=== PATIENT | male | born 1980 | race Two or more races ===

== ENCOUNTER 2016-02-25 12:22 | Inpatient (IN) | payer OTHER ==
[2016-02-25 14:14] VITALS: BMI 24.3
--- NOTE | 2016-02-25 15:26 | HP ---
COWS - Scale Resting Pulse: 0= OK 80 or Below Sweatin=Flushed/Facial Moisture Restless Observation: 1= Difficult to Sit Still Pupil Size: 0= Normal to Room Light Bone or Joint Aches: 2= Severe Diffuse Aches Runny Nose/ Eye Tearin= Runny Nose/Eyes GI Upset > 30mins: 1= Stomach Cramp Tremor Observation: 2= Slight Tremor Visible Yawning Observation: 2= >3x During Session Anxiety or Irritability: 2=Irritable/Anxious Goose Flesh Skin: 3=Piloerection COWS Score: 17 CIWA Score - CIWA Score Nausea/Vomitin-No Nausea/No Vomiting Muscle Tremors: 4-Moderate,w/Arms Extend Anxiety: 4-Mod. Anxious/Guarded Agitation: 4-Moderately Restless Paroxysmal Sweats: 3 Orientation: 0-Oriented Tacttile Disturbances: 0-None Auditory Disturbances: 0-None Visual Disturbances: 0-None Headache: 0-None Present CIWA-Ar Total Score: 15 Admission ROS S - HPI Chief Complaint: I want to start drug free for the new year. Allergies/Adverse Reactions: Allergies Allergy/AdvReac Type Severity Reaction Status Date / Time No Known Allergies Allergy Verified 02/25/16 15:14 History of Present Illness: pt is a 35yr old male with a history of alcohol and xanax, cocaine dependence seeking detox for treatment. pt is on a mmtp program received 80mg today. pending verification. Exam Limitations: No Limitations - Ebola screening Have you traveled outside of the country in the last 21 days: No Have you had contact with anyone from an Ebola affected area: No Have you been sick,other than usual withdrawal symptoms: No Do you have a fever: No - Review of Systems Constitutional: Chills, Diaphoresis, Loss of Appetite, Night Sweats, Changes in sleep, Unintentional Wgt. Loss EENT: reports: No Symptoms Reported, Tearing, Nose Congestion Respiratory: reports: No Symptoms reported Cardiac: reports: No Symptoms Reported GI: reports: Poor Appetite, Poor Fluid Intake : reports: No Symptoms Reported Musculoskeletal: reports: Back Pain Integumentary: reports: Flushing, Sweating Neuro: reports: Headache, Tingling, Tremors Endocrine: reports: Excessive Sweating, Flushing, Intolerance to Cold, Intolerance to Heat Hematology: reports: No Symptoms Reported Psychiatric: reports: Judgement Intact, Mood/Affect Appropiate, Orientated x3, Agitated, Anxious Other Systems: Reviewed and Negative Patient History - Patient Medical History Hx Anemia: No Hx Asthma: No Hx Chronic Obstructive Pulmonary Disease (COPD): No Hx Cancer: No Hx Cardiac Disorders: No Hx Congestive Heart Failure: No Hx Hypertension: No Hx Hypercholesterolemia: No Hx Pacemaker: No HX Cerebrovascular Accident: No Hx Seizures: No Hx Dementia: No Hx Diabetes: No Hx Gastrointestinal Disorders: No Hx Liver Disease: No Hx Genitourinary Disorders: No Hx Sexually Transmitted Disorders: No Hx Renal Disease (ESRD): No Hx Thyroid Disease: No Hx Human Immunodeficiency Virus (HIV): No (negative) Hx Hepatitis C: Yes (diagnosed 2001) Hx Depression: Yes Hx Suicide Attempt: Yes (LAST 2011; denies any S/H ideation today) Hx Bipolar Disorder: No Hx Schizophrenia: No - Patient Surgical History Past Surgical History: Yes Hx Neurologic Surgery: No Hx Cataract Extraction: No Hx Cardiac Surgery: No Hx Lung Surgery: No Hx Breast Surgery: No Hx Breast Biopsy: No Hx Abdominal Surgery: Yes (mesothelioma 2012) Hx Appendectomy: No Hx Cholecystectomy: No Hx Genitourinary Surgery: No Hx Section: No Hx Orthopedic Surgery: No Anesthesia Reaction: No - PPD History Previous Implant?: Yes Documented Results: Negative w/proof Date: 11/25/15 Results: 0MM PPD to be Administered?: No - Reproductive History Patient is a Female of Child Bearing Age (11 -55 yrs old): No - Smoking Cessation Smoking history: Current every day smoker Have you smoked in the past 12 months: Yes Aproximately how many cigarettes per day: 10 Cigars Per Day: 0 Hx Chewing Tobacco Use: No Initiated information on smoking cessation: Yes 'Breaking Loose' booklet given: 02/25/16 - Substance & Tx. History Hx Alcohol Use: Yes Hx Substance Use: Yes Substance Use Type: Alcohol, Cocaine Hx Substance Use Treatment: Yes - Substances Abused Xanax Route: Oral Frequency: Daily Amount used: 8 mg. Age of first use: 25 Date of Last Use: 02/24/16 Alcohol-raji/vodka/beer Route: Oral Frequency: Daily Amount used: 2 pts./2-6 pks. Age of first use: 10 Date of Last Use: 02/25/16 Family Disease History - Family Disease History Family History: Denies Admission Physical Exam [facility] - Vital Signs Vital Signs: Vital Signs - 24 hr 02/25/16 14:09 Temperature 96.9 F L Pulse Rate 58 L Respiratory 18 Rate Blood Pressure 119/75 - Physical General Appearance: Yes: Appropriately Dressed, Moderate Distress, Tremorous, Irritable, Sweating, Anxious HEENTM: Yes: Normal Voice, Nasal Congestion, Rhinorrhea Respiratory: Yes: Lungs Clear, Normal Breath Sounds, No Respiratory Distress Neck: Yes: No masses,lesions,Nodules Breast: Yes: Within Normal Limits Cardiology: Yes: Regular Rhythm, Regular Rate, S1, S2 Abdominal: Yes: Normal Bowel Sounds, Non Tender, Soft, Surgical Scar (midline d/ t mesothelioma diagnoses) Genitourinary: Yes: Within Normal Limits Back: Yes: Normal Inspection Musculoskeletal: Yes: full range of Motion Extremities: Yes: Normal Capillary Refill, Non-Tender, Tremors Neurological: Yes: Fully Oriented, Alert, Normal Mood/Affect, Normal Response Integumentary: Yes: Normal Color, Diaphoresis, Track Christie Lymphatic: Yes: Within Normal Limits - Diagnostic (1) Alcohol dependence with uncomplicated withdrawal Current Visit: Yes Status: Chronic (2) Cocaine dependence Current Visit: Yes Status: Chronic Qualifiers: Substance use status: uncomplicated Qualified Code(s): F14.20 - Cocaine dependence, uncomplicated (3) Hepatitis C Current Visit: Yes Status: Chronic Qualifiers: Viral hepatitis chronicity: chronic Hepatic coma status: without hepatic coma Qualified Code(s): B18.2 - Chronic viral hepatitis C (4) Methadone maintenance therapy patient Current Visit: Yes Status: Chronic Comment: 80mg received today; pending verification. 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 Current Visit: Yes Status: Chronic (6) Hx of malignant mesothelioma Current Visit: No Status: Chronic Comment: in remission (7) Nicotine dependence Current Visit: Yes Status: Chronic Qualifiers: Nicotine product type: cigarettes Substance use status: uncomplicated Qualified Code(s): F17.210 - Nicotine dependence, cigarettes, uncomplicated Cleared for Admission [facility] - Detox or Rehab [facility] Level of Care: Medically Managed Detox Regimen/Protocol: Valium [facility] Breath Alcohol Content Breath Alcohol Content: 0 Urine Drug Screen - Results Drug Screen Negative: No Urine Drug Screen Results: ROSALIE-Cocaine, OPI-Opiates, MDMA-Ecstasy, BZO- Benzodiazepines, MTD-Methadone
[2016-02-25] MEDS ORDERED: MAGNESIUM HYDROX 2400MG/30ML ORAL SUSPENSION 30 ML CUP PO PRN (15:41)
[2016-02-25] MEDS ORDERED: NICOTINE POLACRILEX 4 MG GUM BC PRN (15:41)
[2016-02-25] MEDS ORDERED: LOPERAMIDE HCL 2 MG CAPSULE PO PRN (15:41)
[2016-02-25] MEDS ORDERED: diphenhydrAMINE HCL 50 MG CAPSULE PO PRN (15:41)
[2016-02-25] MEDS ORDERED: P-EPHED 60MG/TRIPROLIDI 2.5MG TABLET PO PRN (15:41)
[2016-02-25] MEDS ORDERED: hydrOXYzine PAMOATE 50 MG CAPSULE (FP) PO PRN (15:41)
[2016-02-25] MEDS ORDERED: ACETAMINOPHEN 325 MG TABLET (FP) PO PRN (15:41)
[2016-02-25] MEDS ORDERED: guaiFENesin/D-METHORPHAN HB 10 ML UNIT-DOSE CUPS PO PRN (15:41)
[2016-02-25] MEDS ORDERED: MAGNESIUM CITRATE 300 ML BOTTLE PO PRN (15:41)
[2016-02-25] MEDS ORDERED: MAG HYDROX/AL HYDROX/SIMETH 30 ML UNIT-DOSE CUP PO PRN (15:41)
[2016-02-25] MEDS ORDERED: IBUPROFEN 400 MG TABLET (FP) PO PRN (15:41)
[2016-02-25] MEDS ORDERED: MENTHOL/PHENOL 1 EACH UD MM PRN (15:41)
[2016-02-25] MEDS ORDERED: diazePAM 5 MG TABLET PO ONE (16:30)
[2016-02-25] MEDS: diazePAM 5 MG TABLET PO SCH ×2 (18:01→22:29)
[2016-02-25] MEDS: THIAMINE HCL 100 MG TABLET (FP) PO SCH (22:29)
[2016-02-26] MEDS: diazePAM 5 MG TABLET PO SCH ×3 (05:47→22:26)
[2016-02-26] MEDS ORDERED: METHADONE HCL 40 MG DISPERSABLE TABLET PO ONE (08:32)
[2016-02-26] MEDS: diazePAM 5 MG TABLET PO PRN (09:14)
[2016-02-26] MEDS: PRENATAL VITAMINS W/ FOLIC ACID TABLET (FP) PO SCH (09:14)
[2016-02-26] MEDS: NICOTINE 21 MG/24 HOURS TOPICAL PATCH TD SCH (09:15)
--- NOTE | 2016-02-26 09:30 | CONSULT ---
[facility] Psychiatric Consult - Data Date of interview: 02/26/16 Admission source: [facility] Identifying data: This is one of multiple admissions to [facility] for this 35 y/ o male seeking detox treatment on for alcohol,cocaine and benzodiazepine dependence.Patient is single without children,homeless, unemployed and supported on SSI benefits. Substance Abuse History: - Smoking Cessation. Smoking history: Current every day smoker. Have you smoked in the past 12 months: Yes. Aproximately how many cigarettes per day: 10. Cigars Per Day: 0. Hx Chewing Tobacco Use: No. Initiated information on smoking cessation: Yes. 'Breaking Loose' booklet given : 02/25/16. - Substance & Tx. History. Hx Alcohol Use: Yes. Hx Substance Use : Yes. Substance Use Type: Alcohol, Cocaine. Hx Substance Use Treatment: Yes. - Substances Abused. Xanax. Route: Oral. Frequency: Daily. Amount used : 8 mg. Age of first use: 25. Date of Last Use: 02/24/16. Alcohol-raji/ vodka/beer. Route: Oral. Frequency: Daily. Amount used: 2 pts./2-6 pks. Age of first use: 10. Date of Last Use: 02/25/16. Confirmed by patient. Medical History: Significant for hepatitis C and a past history of abdominal surgery for mesothelioma (2012). Psychiatric History: Four psychiatric hospitalizations.Diagnosed with Bipolar Disorder.First contact with the Mental Health system was in 2001 (overdose with "pills").Known to [facility] (2002) and [facility] (2004 for another overdose with olanzapine,seroquel and xanax) .Mr Gallegos reports past maintenance treatment with depakote,seroquel,zyprexa, celexa,zoloft and trazodone.He is totally non compliant with his aftercare (no OPD clinic,no contact with psychiatrists,no medications)."I stopped going to my program and I have not taken medications since my discharge from this rehab program last November." Self-report of a suicide attempt via self-mutilation ( left arm) in 2011.Patient is on methadone maintenance (80 mg/day). Physical/Sexual Abuse/Trauma History: Patient denies. Additional Comment: Urine Drug Screen Results: ROSALIE-Cocaine, OPI-Opiates, MDMA- Ecstasy, BZO-Benzodiazepines, MTD-Methadone.Noted. Mental Status Exam - Mental Status Exam Alert and Oriented to: Time, Place, Person Cognitive Function: Good Patient Appearance: Well Groomed Mood: Hopeful, Euthymic Affect: Appropriate, Normal Range Patient Behavior: Appropriate, Cooperative Speech Pattern: Clear Voice Loudness: Normal Thought Process: Goal Oriented Thought Disorder: Not Present Hallucinations: Denies Suicidal Ideation: Denies Homicidal Ideation: Denies Insight/Judgement: Poor Sleep: Poorly, Difficulty falling asleep Appetite: Good Muscle strength/Tone: Normal Gait/Station: Normal Psychiatric Findings - Problem List ([place] 1, 2,3) (1) Alcohol dependence with uncomplicated withdrawal Current Visit: Yes Status: Acute (2) Cocaine dependence Current Visit: Yes Status: Acute Qualifiers: Substance use status: uncomplicated Qualified Code(s): F14.20 - Cocaine dependence, uncomplicated (3) Opioid dependence on agonist therapy Current Visit: Yes Status: Acute (4) Opioid dependence Current Visit: Yes Status: Acute (5) MDMA abuse Current Visit: Yes Status: Acute (6) Sedative/hypnotic withdrawal without complication Current Visit: Yes Status: Chronic (7) Nicotine dependence Current Visit: Yes Status: Acute Qualifiers: Nicotine product type: cigarettes Substance use status: uncomplicated Qualified Code(s): F17.210 - Nicotine dependence, cigarettes, uncomplicated (8) Drug-induced mood disorder Current Visit: Yes Status: Acute (9) Bipolar disorder Current Visit: No Status: Chronic Comment: History reported by patient. (10) Hepatitis C Current Visit: Yes Status: Chronic Qualifiers: Viral hepatitis chronicity: chronic Hepatic coma status: without hepatic coma Qualified Code(s): B18.2 - Chronic viral hepatitis C (11) Hx of malignant mesothelioma Current Visit: No Status: Chronic Comment: in remission - Initial Treatment Plan Initial Treatment Plan: Psychoeducation.Detoxification.Zolpidem 5 mg po hs prn for insomnia.Patient is made aware of parasomnias.He declines to take any other medication (except detox meds).Observation.
--- NOTE | 2016-02-26 10:06 | PN ---
S CIWA - CIWA Score Nausea/Vomitin Muscle Tremors: 3 Anxiety: 3 Agitation: 3 Paroxysmal Sweats: 1-Minimal Palms Moist Orientation: 0-Oriented Tacttile Disturbances: 1-Very Mild Itch/Numbness Auditory Disturbances: 1-Very Mild Visual Disturbances: 1-Very Mild Sensitivity Headache: 2-Mild CIWA-Ar Total Score: 18 BHS Progress Note (SOAP) Subjective: ALERT,IRRITABLE,ANXIOUS,INTERRUPTED SLEEP,TREMOR,PAIN IN THE BODY AND BACK Objective: 02/26/16 10:04 Vital Signs Temperature 97.1 F L 02/26/16 09:35 Pulse Rate 67 02/26/16 09:35 Respiratory Rate 18 02/26/16 09:35 Blood Pressure 108/68 02/26/16 09:35 O2 Sat by Pulse Oximetry (%) EKG SINUS BRADYCARDIA 50/MIN NO CHEST PAIN,NO SOB,NO DIZZINESS LABS PENDING Assessment: 02/26/16 10:05 WITHDRAWAL SYMPTOM Plan: CONTINUE DETOX
[2016-02-26 11:30] LABS: MCH 30.6 pg (25.7-33.7); MCHC 33.1 g/dl (32.0-35.9); MEAN CELL VOLUME 92.6 fl (80-96); MEAN PLT VOLUME 11.5 fl (7.5-11.1); PLATELET COUNT 128 K/MM3 (134-434); RDW 13.3 % (11.9-15.9); WHITE BLOOD COUNT 8.6 K/mm3 (4.0-10.0)
[2016-02-26 11:31] LABS: ALBUMIN 4.2 g/dl (3.4-5.0); ALK PHOS 108 U/L (45-117); ANION GAP 6 (8-16); BILIRUBIN,TOTAL 0.2 mg/dL (0.2-1.0); CALCIUM 9.3 mg/dL (8.5-10.1); CO2 30 mmol/L (21-32); GLUCOSE,RANDOM 55 mg/dL (74-106); SGOT/AST 66 U/L (15-37); SGPT/ALT 102 U/L (12-78); TOT PROT 8.1 g/dl (6.4-8.2)
[2016-02-26 13:18] LABS: HIV 1 & 2 AB NEGATIVE; HIV 1 AGp24 NEGATIVE
[2016-02-26] MEDS: THIAMINE HCL 100 MG TABLET (FP) PO SCH (22:24)
[2016-02-26] MEDS: ZOLPIDEM TARTRATE 5 MG TABLET PO PRN (22:43)
[2016-02-27] MEDS: METHADONE HCL 40 MG DISPERSABLE TABLET PO SCH (05:40)
[2016-02-27] MEDS: diazePAM 5 MG TABLET PO PRN ×3 (05:40→19:08)
--- NOTE | 2016-02-27 09:59 | PN ---
S CIWA - CIWA Score Nausea/Vomitin Muscle Tremors: 3 Anxiety: 2 Agitation: 2 Paroxysmal Sweats: 1-Minimal Palms Moist Orientation: 0-Oriented Tacttile Disturbances: 1-Very Mild Itch/Numbness Auditory Disturbances: 1-Very Mild Visual Disturbances: 1-Very Mild Sensitivity Headache: 2-Mild CIWA-Ar Total Score: 16 S Progress Note (SOAP) Subjective: ALERT,IRRITABLE,ANXIOUS,INTERRUPTED SLEEP,TREMOR Objective: 02/27/16 09:57 Vital Signs Temperature 98.6 F 02/27/16 09:42 Pulse Rate 20 L 02/27/16 09:42 Respiratory Rate 18 02/27/16 09:42 Blood Pressure 108/70 02/27/16 09:42 O2 Sat by Pulse Oximetry (%) Laboratory Last Values WBC 8.6 K/mm3 (4.0-10.0) 02/26/16 06:00 RBC 4.13 M/mm3 (4.00-5.60) 02/26/16 06:00 Hgb 12.6 GM/dL (11.7-16.9) 02/26/16 06:00 Hct 38.2 % (35.4-49) 02/26/16 06:00 MCV 92.6 fl (80-96) 02/26/16 06:00 MCHC 33.1 g/dl (32.0-35.9) 02/26/16 06:00 RDW 13.3 % (11.9-15.9) 02/26/16 06:00 Plt Count 128 K/MM3 (134-434) L 02/26/16 06:00 MPV 11.5 fl (7.5-11.1) H 02/26/16 06:00 Sodium 140 mmol/L (136-145) 02/26/16 06:00 Potassium 4.0 mmol/L (3.5-5.1) 02/26/16 06:00 Chloride 104 mmol/L (98-107) 02/26/16 06:00 Carbon Dioxide 30 mmol/L (21-32) 02/26/16 06:00 Anion Gap 6 (8-16) L 02/26/16 06:00 BUN 14 mg/dL (7-18) 02/26/16 06:00 Creatinine 1.0 mg/dL (0.7-1.3) 02/26/16 06:00 Creat Clearance w eGFR > 60 (>60) 02/26/16 06:00 Random Glucose 55 mg/dL (74-106) L 02/26/16 06:00 Calcium 9.3 mg/dL (8.5-10.1) 02/26/16 06:00 Total Bilirubin 0.2 mg/dL (0.2-1.0) 02/26/16 06:00 AST 66 U/L (15-37) H 02/26/16 06:00 ALT 102 U/L (12-78) H 02/26/16 06:00 Alkaline Phosphatase 108 U/L (45-117) 02/26/16 06:00 Total Protein 8.1 g/dl (6.4-8.2) 02/26/16 06:00 Albumin 4.2 g/dl (3.4-5.0) 02/26/16 06:00 RPR Titer Nonreactive (NONREACTIVE) 02/26/16 06:00 HIV 1&2 Antibody Screen Negative 02/25/16 06:00 HIV P24 Antigen Negative 02/25/16 06:00 Assessment: 02/27/16 09:58 WITHDRAWAL SYMPTOM Plan: CONTINUE DETOX,D/C TYLENOL,AST 66,ALT 102
[2016-02-27] MEDS: PRENATAL VITAMINS W/ FOLIC ACID TABLET (FP) PO SCH (10:22)
[2016-02-27] MEDS: diazePAM 5 MG TABLET PO SCH ×2 (10:22→22:23)
[2016-02-27] MEDS: NICOTINE 21 MG/24 HOURS TOPICAL PATCH TD SCH (10:22)
[2016-02-27] MEDS: THIAMINE HCL 100 MG TABLET (FP) PO SCH (22:22)
[2016-02-27] MEDS: ZOLPIDEM TARTRATE 5 MG TABLET PO PRN (22:23)
[2016-02-28 00:44] LABS: URINE APPEARANCE CLEAR; URINE BILIRUBIN NEGATIVE (NEGATIVE); URINE BLOOD NEGATIVE (NEGATIVE); URINE COLOR LTYELLOW; URINE GLUCOSE (UA) NEGATIVE (NEGATIVE); URINE KETONE NEGATIVE (NEGATIVE); URINE LEUK ESTERASE NEGATIVE (NEGATIVE); URINE NITRITE NEGATIVE (NEGATIVE); URINE PROTEIN NEGATIVE (NEGATIVE); URINE UROBILINOGEN NEGATIVE E.U./dl (0.2-1.0)
[2016-02-28] MEDS: diazePAM 5 MG TABLET PO PRN ×2 (00:55→13:12)
[2016-02-28] MEDS ORDERED: diazePAM 5 MG TABLET PO ONE (03:07)
[2016-02-28] MEDS: METHADONE HCL 40 MG DISPERSABLE TABLET PO SCH (05:23)
--- NOTE | 2016-02-28 10:12 | PN ---
S Progress Note (SOAP) Subjective: alert,irritable,anxious,interrupted sleep Objective: 02/28/16 10:11 Vital Signs Temperature 97.9 F 02/28/16 06:18 Pulse Rate 62 02/28/16 09:52 Respiratory Rate 18 02/28/16 09:52 Blood Pressure 113/70 02/28/16 09:52 O2 Sat by Pulse Oximetry (%) Assessment: 02/28/16 10:11 withdrawal symptom Plan: continue detox ,discharge in am
[2016-02-28] MEDS: PRENATAL VITAMINS W/ FOLIC ACID TABLET (FP) PO SCH (10:26)
[2016-02-28] MEDS: diazePAM 5 MG TABLET PO SCH (10:27)
[2016-02-28] MEDS: NICOTINE 21 MG/24 HOURS TOPICAL PATCH TD SCH (10:27)
[2016-02-28 14:52] VITALS: BP 108/59; PULSE 65; TEMP 96.6
--- NOTE | 2016-02-28 15:39 | DS ---
[facility] Detox Discharge Summary Admission Date: 02/25/16 Discharge Date: 02/28/16 - History Present History: Alcohol Dependence, Cocaine Dependence, Sedative Dependence, MMTP Pertinent Past History: HEP C HX. OF MESOTHELIOMA OF THE LUNG? - Physical Exam Results Vital Signs: Vital Signs Temperature 96.6 F L 02/28/16 14:35 Pulse Rate 65 02/28/16 14:35 Respiratory Rate 18 02/28/16 14:35 Blood Pressure 108/59 02/28/16 14:35 O2 Sat by Pulse Oximetry (%) Pertinent Admission Physical Exam Findings: WITHDRAWAL SX. Laboratory Last Values WBC 8.6 K/mm3 (4.0-10.0) 02/26/16 06:00 RBC 4.13 M/mm3 (4.00-5.60) 02/26/16 06:00 Hgb 12.6 GM/dL (11.7-16.9) 02/26/16 06:00 Hct 38.2 % (35.4-49) 02/26/16 06:00 MCV 92.6 fl (80-96) 02/26/16 06:00 MCHC 33.1 g/dl (32.0-35.9) 02/26/16 06:00 RDW 13.3 % (11.9-15.9) 02/26/16 06:00 Plt Count 128 K/MM3 (134-434) L 02/26/16 06:00 MPV 11.5 fl (7.5-11.1) H 02/26/16 06:00 Sodium 140 mmol/L (136-145) 02/26/16 06:00 Potassium 4.0 mmol/L (3.5-5.1) 02/26/16 06:00 Chloride 104 mmol/L (98-107) 02/26/16 06:00 Carbon Dioxide 30 mmol/L (21-32) 02/26/16 06:00 Anion Gap 6 (8-16) L 02/26/16 06:00 BUN 14 mg/dL (7-18) 02/26/16 06:00 Creatinine 1.0 mg/dL (0.7-1.3) 02/26/16 06:00 Creat Clearance w eGFR > 60 (>60) 02/26/16 06:00 Random Glucose 55 mg/dL (74-106) L 02/26/16 06:00 Calcium 9.3 mg/dL (8.5-10.1) 02/26/16 06:00 Total Bilirubin 0.2 mg/dL (0.2-1.0) 02/26/16 06:00 AST 66 U/L (15-37) H 02/26/16 06:00 ALT 102 U/L (12-78) H 02/26/16 06:00 Alkaline Phosphatase 108 U/L (45-117) 02/26/16 06:00 Total Protein 8.1 g/dl (6.4-8.2) 02/26/16 06:00 Albumin 4.2 g/dl (3.4-5.0) 02/26/16 06:00 Urine Color Ltyellow 02/28/16 00:30 Urine Appearance Clear 02/28/16 00:30 Urine pH 5.0 (5.0-8.0) 02/28/16 00:30 Ur Specific [place] 1.018 (1.001-1.035) 02/28/16 00:30 Urine Protein Negative (NEGATIVE) 02/28/16 00:30 Urine Glucose (UA) Negative (NEGATIVE) 02/28/16 00:30 Urine Ketones Negative (NEGATIVE) 02/28/16 00:30 Urine Blood Negative (NEGATIVE) 02/28/16 00:30 Urine Nitrite Negative (NEGATIVE) 02/28/16 00:30 Urine Bilirubin Negative (NEGATIVE) 02/28/16 00:30 Urine Urobilinogen Negative E.U./dl (0.2-1.0) 02/28/16 00:30 Ur Leukocyte Esterase Negative (NEGATIVE) 02/28/16 00:30 RPR Titer Nonreactive (NONREACTIVE) 02/26/16 06:00 HIV 1&2 Antibody Screen Negative 02/25/16 06:00 HIV P24 Antigen Negative 02/25/16 06:00 LABS NOTED - Treatment Hospital Course: Detox Protocol Followed, Detoxed Safely, Discharged Condition Good - Medication Discharge Medications: Ambulatory Orders Citalopram Hydrobromide [Celexa -] 10 mg PO DAILY 11/26/15 Divalproex [Depakote -] 500 mg PO BID 11/26/15 Quetiapine Fumarate [Seroquel] 100 mg PO HS 11/26/15 - Diagnosis (1) Alcohol dependence with uncomplicated withdrawal Status: Acute (2) Cocaine dependence Status: Acute Qualifiers: Substance use status: uncomplicated Qualified Code(s): F14.20 - Cocaine dependence, uncomplicated (3) Drug-induced mood disorder Status: Acute (4) Nicotine dependence Status: Acute Qualifiers: Nicotine product type: cigarettes Substance use status: uncomplicated Qualified Code(s): F17.210 - Nicotine dependence, cigarettes, uncomplicated (5) Opioid dependence on agonist therapy Status: Acute (6) Hepatitis C Status: Chronic Qualifiers: Viral hepatitis chronicity: chronic Hepatic coma status: without hepatic coma Qualified Code(s): B18.2 - Chronic viral hepatitis C - AMA Did Patient Leave Against Medical Advice: No
[2016-02-29] MEDS ORDERED: diazePAM 5 MG TABLET PO SCH (10:00)
== END 2016-02-28 14:38 | disposition other institution (70) | DRG 773 ==
LOC: YASAS 12:22 → Y3N 16:00
PROVIDERS: ADMIT Internal Medicine; ATTEND Internal Medicine
PROC: HZ2ZZZZ Detoxification Services for Substance Abuse Treatment (ICD-10-PCS; principal; 2016-02-25)
DX: F10.230 Alcohol dependence with withdrawal, uncomplicated (principal); F11.20 Opioid dependence, uncomplicated; F14.20 Cocaine dependence, uncomplicated; F17.210 Nicotine dependence, cigarettes, uncomplicated; F19.24 Other psychoactive substance dependence with psychoactive substance-induced mood disorder; F31.9 Bipolar disorder, unspecified; B18.2 Chronic viral hepatitis C; R00.1 Bradycardia, unspecified; Z85.9 Personal history of malignant neoplasm, unspecified; Z91.5 Personal history of self-harm
CPT/HCPCS: 36415; 80053; 81003; 85027; 86593; 87389; 93005; 93010

== ENCOUNTER 2016-02-28 14:45 | Inpatient (IN) | payer OTHER ==
[2016-02-28] MEDS ORDERED: guaiFENesin/D-METHORPHAN HB 10 ML UNIT-DOSE CUPS PO PRN (15:24)
[2016-02-28] MEDS ORDERED: MENTHOL/PHENOL 1 EACH UD MM PRN (15:24)
[2016-02-28] MEDS ORDERED: MAGNESIUM CITRATE 300 ML BOTTLE PO PRN (15:24)
[2016-02-28] MEDS ORDERED: P-EPHED 60MG/TRIPROLIDI 2.5MG TABLET PO PRN (15:24)
[2016-02-28] MEDS ORDERED: MAGNESIUM HYDROX 2400MG/30ML ORAL SUSPENSION 30 ML CUP PO PRN (15:24)
[2016-02-28] MEDS ORDERED: diphenhydrAMINE HCL 50 MG CAPSULE PO PRN (15:24)
[2016-02-28] MEDS ORDERED: LOPERAMIDE HCL 2 MG CAPSULE PO PRN (15:24)
--- NOTE | 2016-02-28 15:43 | HP ---
[facility] Rehab Assess/Revision - Admission History Admitted to Rehab from: [facility] [place] Date of Admission to Rehab: 02/28/16 - Vital signs Vital Signs: Vital Signs Period Temp Pulse Resp BP Sys/Max Pulse Ox Last 24 Hr 98.9 F 83 18 115/66 - Findings Detox History & Physical reviewed: Yes Concur with findings: Yes
[2016-02-28] MEDS: NICOTINE 21 MG/24 HOURS TOPICAL PATCH TD SCH (15:53)
[2016-02-28] MEDS: IBUPROFEN 400 MG TABLET (FP) PO PRN (19:03)
[2016-02-28] MEDS: THIAMINE HCL 100 MG TABLET (FP) PO SCH (22:30)
[2016-02-29] MEDS: METHADONE HCL 40 MG DISPERSABLE TABLET PO SCH (06:13)
[2016-02-29] MEDS: ACETAMINOPHEN 325 MG TABLET (FP) PO PRN (06:15)
[2016-02-29] MEDS: NICOTINE 21 MG/24 HOURS TOPICAL PATCH TD SCH (10:27)
[2016-02-29] MEDS: PRENATAL VITAMINS W/ FOLIC ACID TABLET (FP) PO SCH (10:28)
--- NOTE | 2016-02-29 15:25 | HP ---
Psychiatrist Admission - Data Date of interview: 02/29/16 Admission source: Transfer Identifying data: Admission to [address] for this 35 y/o male seeking rehabilitation treatment for alcohol,cocaine and benzodiazepine dependence.Transferred from [address] [place] [address].Patient is single without children,homeless, unemployed and supported on SSI benefits. Medical History: Significant for hepatitis C and a past history of abdominal surgery for mesothelioma (2012 Psychiatric History: Four psychiatric hospitalizations.Diagnosed with Bipolar Disorder.First contact with the Mental Health system was in 2001 (overdose with "pills").Known to [facility] (2002) and [facility] (2004 for another overdose with olanzapine,seroquel and xanax) .Mr El reports past maintenance treatment with depakote,seroquel,zyprexa, celexa,zoloft and trazodone.He is totally non compliant with his aftercare (no OPD clinic,no contact with psychiatrists,no medications)."I stopped going to my program and I have not taken medications since my discharge from this rehab program last November." Self-report of a suicide attempt via self-mutilation ( left arm) in 2011.Patient is on methadone maintenance (80 mg/day). Physical/Sexual Abuse/Trauma History: Patient denies history of sexual abuse. Additional Comment: Smoking Cessation. Smoking history: Current every day smoker. Have you smoked in the past 12 months: Yes. Aproximately how many cigarettes per day: 10. Cigars Per Day: 0. Hx Chewing Tobacco Use: No. Initiated information on smoking cessation: Yes. 'Breaking Loose' booklet given : 02/25/16. - Substance & Tx. History. Hx Alcohol Use: Yes. Hx Substance Use : Yes. Substance Use Type: Alcohol, Cocaine. Hx Substance Use Treatment: Yes. - Substances Abused. Xanax. Route: Oral. Frequency: Daily. Amount used : 8 mg. Age of first use: 25. Date of Last Use: 02/24/16. Alcohol-raji/ vodka/beer. Route: Oral. Frequency: Daily. Amount used: 2 pts./2-6 pks. Age of first use: 10. Date of Last Use: 02/25/16. Confirmed by patient. Vital Signs: Vital Signs - 24 hr 02/29/16 02/29/16 02/29/16 01:22 03:30 07:14 Temperature 98.2 F Pulse Rate 65 Respiratory 18 18 18 Rate Blood Pressure 134/88 02/29/16 10:00 Temperature 98.2 F Pulse Rate 67 Respiratory 20 Rate Blood Pressure 117/57 Allergies/Adverse Reactions: Allergies Allergy/AdvReac Type Severity Reaction Status Date / Time No Known Allergies Allergy Verified 02/28/16 15:09 - Substance Abuse/Tx History Hx Alcohol Use: Yes Hx Substance Use: Yes Substance Use Type: Alcohol, Cocaine, Tranquilizers Hx Substance Use Treatment: Yes - Admission Criteria Previous failed treatment: Yes Poor recovery environment: Yes Comorbidities: Yes Lacks judgement: Yes Mental Status Exam - Mental Status Exam Alert and Oriented to: Time, Place, Person Cognitive Function: Good Patient Appearance: Well Groomed Mood: Hopeful, Euthymic Affect: Appropriate, Normal Range Patient Behavior: Talkative, Appropriate, Cooperative Speech Pattern: Clear Voice Loudness: Normal Thought Process: Intact, Goal Oriented Thought Disorder: Not Present Hallucinations: Denies Suicidal Ideation: Denies Homicidal Ideation: Denies Insight/Judgement: Fair Sleep: Poorly, Difficulty falling asleep (agrees to take a low dose of seroquel) Appetite: Good Muscle strength/Tone: Normal Gait/Station: Normal Psychiatric Findings - Problem List ([place] 1, 2,3) (1) Alcohol dependence Current Visit: Yes Status: Acute Qualifiers: Substance use status: uncomplicated Qualified Code(s): F10.20 - Alcohol dependence, uncomplicated (2) Cocaine dependence Current Visit: Yes Status: Acute Qualifiers: Substance use status: uncomplicated Qualified Code(s): F14.20 - Cocaine dependence, uncomplicated (3) MDMA abuse Current Visit: No Status: Acute (4) Nicotine dependence Current Visit: Yes Status: Acute Qualifiers: Nicotine product type: cigarettes Substance use status: uncomplicated Qualified Code(s): F17.210 - Nicotine dependence, cigarettes, uncomplicated (5) Opioid dependence on agonist therapy Current Visit: Yes Status: Acute (6) Sedative dependence Current Visit: Yes Status: Acute (7) Drug-induced mood disorder Current Visit: Yes Status: Chronic (8) Bipolar disorder Current Visit: Yes Status: Chronic Comment: History reported by patient. (9) Hepatitis C Current Visit: Yes Status: Chronic Qualifiers: Viral hepatitis chronicity: chronic Hepatic coma status: without hepatic coma Qualified Code(s): B18.2 - Chronic viral hepatitis C (10) Hx of malignant mesothelioma Current Visit: No Status: Chronic Comment: in remission (11) Insomnia Current Visit: Yes Status: Acute - Initial Treatment Plan Initial Treatment Plan: Psychoeducation.Support groups.Seroquel 100 mg po hs.Side effects/benefits discussed with patient.He agrees with this plan.Observation.
[2016-02-29] MEDS: QUEtiapine FUMARATE 100 MG TABLET (FP) PO SCH (21:52)
[2016-02-29] MEDS: THIAMINE HCL 100 MG TABLET (FP) PO SCH (21:53)
[2016-03-01] MEDS: METHADONE HCL 40 MG DISPERSABLE TABLET PO SCH (06:47)
[2016-03-01] MEDS: PRENATAL VITAMINS W/ FOLIC ACID TABLET (FP) PO SCH (10:23)
[2016-03-01] MEDS: NICOTINE 21 MG/24 HOURS TOPICAL PATCH TD SCH (10:24)
[2016-03-01] MEDS: MAG HYDROX/AL HYDROX/SIMETH 30 ML UNIT-DOSE CUP PO PRN (10:24)
[2016-03-01] MEDS: QUEtiapine FUMARATE 100 MG TABLET (FP) PO SCH (22:00)
[2016-03-01] MEDS: THIAMINE HCL 100 MG TABLET (FP) PO SCH (22:00)
[2016-03-02] MEDS: METHADONE HCL 40 MG DISPERSABLE TABLET PO SCH (05:59)
[2016-03-02] MEDS: NICOTINE 21 MG/24 HOURS TOPICAL PATCH TD SCH (10:01)
[2016-03-02] MEDS: PRENATAL VITAMINS W/ FOLIC ACID TABLET (FP) PO SCH (10:01)
[2016-03-02] MEDS: MAG HYDROX/AL HYDROX/SIMETH 30 ML UNIT-DOSE CUP PO PRN (10:03)
[2016-03-02] MEDS: QUEtiapine FUMARATE 100 MG TABLET (FP) PO SCH (21:19)
[2016-03-02] MEDS: THIAMINE HCL 100 MG TABLET (FP) PO SCH (21:19)
[2016-03-02] MEDS: CLOTRIMAZOLE/BETAMET DIPROP 15 GM TUBE TP SCH (21:20)
[2016-03-02] MEDS: COLLOIDAL OATMEAL 1 BAR EACH TP PRN (21:21)
[2016-03-03] MEDS: METHADONE HCL 40 MG DISPERSABLE TABLET PO SCH (06:09)
[2016-03-03] MEDS: CLOTRIMAZOLE/BETAMET DIPROP 15 GM TUBE TP SCH ×2 (10:06→21:19)
[2016-03-03] MEDS: PRENATAL VITAMINS W/ FOLIC ACID TABLET (FP) PO SCH (10:06)
[2016-03-03] MEDS: PANTOPRAZOLE 40 MG TABLET (FP) PO SCH (10:06)
[2016-03-03] MEDS: NICOTINE 21 MG/24 HOURS TOPICAL PATCH TD SCH (10:06)
[2016-03-03] MEDS: QUEtiapine FUMARATE 100 MG TABLET (FP) PO SCH (21:19)
[2016-03-03] MEDS: THIAMINE HCL 100 MG TABLET (FP) PO SCH (21:19)
[2016-03-04] MEDS: METHADONE HCL 40 MG DISPERSABLE TABLET PO SCH (06:23)
[2016-03-04] MEDS: PRENATAL VITAMINS W/ FOLIC ACID TABLET (FP) PO SCH (10:08)
[2016-03-04] MEDS: NICOTINE 21 MG/24 HOURS TOPICAL PATCH TD SCH (10:08)
[2016-03-04] MEDS: CLOTRIMAZOLE/BETAMET DIPROP 15 GM TUBE TP SCH ×2 (10:08→21:09)
[2016-03-04] MEDS: PANTOPRAZOLE 40 MG TABLET (FP) PO SCH (10:08)
[2016-03-04] MEDS: THIAMINE HCL 100 MG TABLET (FP) PO SCH (21:09)
[2016-03-04] MEDS: QUEtiapine FUMARATE 100 MG TABLET (FP) PO SCH (21:09)
[2016-03-04] MEDS: MINERAL OIL/PETROLAT/WATER TOPICAL CREAM 113 GM JAR TP SCH (21:10)
[2016-03-05] MEDS: METHADONE HCL 40 MG DISPERSABLE TABLET PO SCH (06:19)
[2016-03-05] MEDS: NICOTINE 21 MG/24 HOURS TOPICAL PATCH TD SCH (10:13)
[2016-03-05] MEDS: PRENATAL VITAMINS W/ FOLIC ACID TABLET (FP) PO SCH (10:13)
[2016-03-05] MEDS: PANTOPRAZOLE 40 MG TABLET (FP) PO SCH (10:13)
[2016-03-05] MEDS: MINERAL OIL/PETROLAT/WATER TOPICAL CREAM 113 GM JAR TP SCH ×2 (10:14→21:12)
[2016-03-05] MEDS: CLOTRIMAZOLE/BETAMET DIPROP 15 GM TUBE TP SCH ×2 (10:14→21:13)
[2016-03-05] MEDS: IBUPROFEN 400 MG TABLET (FP) PO PRN (10:16)
[2016-03-05] MEDS: THIAMINE HCL 100 MG TABLET (FP) PO SCH (21:11)
[2016-03-05] MEDS: QUEtiapine FUMARATE 100 MG TABLET (FP) PO SCH (21:12)
[2016-03-06] MEDS: METHADONE HCL 40 MG DISPERSABLE TABLET PO SCH (06:22)
[2016-03-06] MEDS: ACETAMINOPHEN 325 MG TABLET (FP) PO PRN (06:24)
[2016-03-06] MEDS: PRENATAL VITAMINS W/ FOLIC ACID TABLET (FP) PO SCH (09:45)
[2016-03-06] MEDS: PANTOPRAZOLE 40 MG TABLET (FP) PO SCH (09:46)
[2016-03-06] MEDS: MINERAL OIL/PETROLAT/WATER TOPICAL CREAM 113 GM JAR TP SCH ×2 (09:46→21:13)
[2016-03-06] MEDS: CLOTRIMAZOLE/BETAMET DIPROP 15 GM TUBE TP SCH ×2 (09:46→21:13)
[2016-03-06] MEDS: NICOTINE 21 MG/24 HOURS TOPICAL PATCH TD SCH (09:47)
[2016-03-06] MEDS: THIAMINE HCL 100 MG TABLET (FP) PO SCH (21:12)
[2016-03-06] MEDS: QUEtiapine FUMARATE 100 MG TABLET (FP) PO SCH (21:12)
[2016-03-07] MEDS: METHADONE HCL 40 MG DISPERSABLE TABLET PO SCH (06:37)
[2016-03-07] MEDS: PRENATAL VITAMINS W/ FOLIC ACID TABLET (FP) PO SCH (09:46)
[2016-03-07] MEDS: CLOTRIMAZOLE/BETAMET DIPROP 15 GM TUBE TP SCH ×2 (09:47→21:04)
[2016-03-07] MEDS: MINERAL OIL/PETROLAT/WATER TOPICAL CREAM 113 GM JAR TP SCH ×2 (09:47→21:04)
[2016-03-07] MEDS: NICOTINE 21 MG/24 HOURS TOPICAL PATCH TD SCH (09:47)
[2016-03-07] MEDS: PANTOPRAZOLE 40 MG TABLET (FP) PO SCH (09:47)
[2016-03-07] MEDS: THIAMINE HCL 100 MG TABLET (FP) PO SCH (21:03)
[2016-03-07] MEDS: QUEtiapine FUMARATE 100 MG TABLET (FP) PO SCH (21:04)
[2016-03-08] MEDS: METHADONE HCL 40 MG DISPERSABLE TABLET PO SCH (05:58)
[2016-03-08] MEDS: CLOTRIMAZOLE/BETAMET DIPROP 15 GM TUBE TP SCH ×2 (10:12→21:03)
[2016-03-08] MEDS: PRENATAL VITAMINS W/ FOLIC ACID TABLET (FP) PO SCH (10:12)
[2016-03-08] MEDS: PANTOPRAZOLE 40 MG TABLET (FP) PO SCH (10:12)
[2016-03-08] MEDS: MINERAL OIL/PETROLAT/WATER TOPICAL CREAM 113 GM JAR TP SCH ×2 (10:12→21:03)
[2016-03-08] MEDS: NICOTINE 21 MG/24 HOURS TOPICAL PATCH TD SCH (10:12)
[2016-03-08] MEDS: ACETAMINOPHEN 325 MG TABLET (FP) PO PRN ×2 (10:13→21:04)
[2016-03-08] MEDS: THIAMINE HCL 100 MG TABLET (FP) PO SCH (21:03)
[2016-03-08] MEDS: QUEtiapine FUMARATE 100 MG TABLET (FP) PO SCH (21:03)
[2016-03-09] MEDS: METHADONE HCL 40 MG DISPERSABLE TABLET PO SCH (06:05)
[2016-03-09] MEDS: MINERAL OIL/PETROLAT/WATER TOPICAL CREAM 113 GM JAR TP SCH ×2 (10:10→21:10)
[2016-03-09] MEDS: NICOTINE 21 MG/24 HOURS TOPICAL PATCH TD SCH (10:10)
[2016-03-09] MEDS: PRENATAL VITAMINS W/ FOLIC ACID TABLET (FP) PO SCH (10:10)
[2016-03-09] MEDS: CLOTRIMAZOLE/BETAMET DIPROP 15 GM TUBE TP SCH ×2 (10:10→21:10)
[2016-03-09] MEDS: PANTOPRAZOLE 40 MG TABLET (FP) PO SCH (10:10)
[2016-03-09] MEDS: ACETAMINOPHEN 325 MG TABLET (FP) PO PRN (10:11)
[2016-03-09] MEDS: QUEtiapine FUMARATE 100 MG TABLET (FP) PO SCH (21:10)
[2016-03-09] MEDS: THIAMINE HCL 100 MG TABLET (FP) PO SCH (21:10)
[2016-03-10] MEDS: METHADONE HCL 40 MG DISPERSABLE TABLET PO SCH (05:59)
[2016-03-10] MEDS: NICOTINE 21 MG/24 HOURS TOPICAL PATCH TD SCH (10:30)
[2016-03-10] MEDS: PRENATAL VITAMINS W/ FOLIC ACID TABLET (FP) PO SCH (10:31)
[2016-03-10] MEDS: ACETAMINOPHEN 325 MG TABLET (FP) PO PRN ×2 (10:31→21:06)
[2016-03-10] MEDS: CLOTRIMAZOLE/BETAMET DIPROP 15 GM TUBE TP SCH ×2 (10:31→21:06)
[2016-03-10] MEDS: PANTOPRAZOLE 40 MG TABLET (FP) PO SCH (10:32)
[2016-03-10] MEDS: MINERAL OIL/PETROLAT/WATER TOPICAL CREAM 113 GM JAR TP SCH ×2 (10:32→21:06)
[2016-03-10] MEDS: THIAMINE HCL 100 MG TABLET (FP) PO SCH (21:05)
[2016-03-10] MEDS: QUEtiapine FUMARATE 100 MG TABLET (FP) PO SCH (21:06)
[2016-03-11] MEDS: METHADONE HCL 40 MG DISPERSABLE TABLET PO SCH (06:39)
[2016-03-11] MEDS: PANTOPRAZOLE 40 MG TABLET (FP) PO SCH (10:09)
[2016-03-11] MEDS: PRENATAL VITAMINS W/ FOLIC ACID TABLET (FP) PO SCH (10:09)
[2016-03-11] MEDS: MINERAL OIL/PETROLAT/WATER TOPICAL CREAM 113 GM JAR TP SCH ×2 (10:10→21:18)
[2016-03-11] MEDS: CLOTRIMAZOLE/BETAMET DIPROP 15 GM TUBE TP SCH ×2 (10:10→21:18)
[2016-03-11] MEDS: NICOTINE 21 MG/24 HOURS TOPICAL PATCH TD SCH (10:10)
[2016-03-11] MEDS: ACETAMINOPHEN 325 MG TABLET (FP) PO PRN ×2 (10:11→21:19)
[2016-03-11] MEDS: THIAMINE HCL 100 MG TABLET (FP) PO SCH (21:19)
[2016-03-11] MEDS: QUEtiapine FUMARATE 100 MG TABLET (FP) PO SCH (21:19)
[2016-03-12] MEDS: METHADONE HCL 40 MG DISPERSABLE TABLET PO SCH (06:29)
[2016-03-12] MEDS: PANTOPRAZOLE 40 MG TABLET (FP) PO SCH (10:22)
[2016-03-12] MEDS: CLOTRIMAZOLE/BETAMET DIPROP 15 GM TUBE TP SCH ×2 (10:22→21:30)
[2016-03-12] MEDS: NICOTINE 21 MG/24 HOURS TOPICAL PATCH TD SCH (10:22)
[2016-03-12] MEDS: PRENATAL VITAMINS W/ FOLIC ACID TABLET (FP) PO SCH (10:22)
[2016-03-12] MEDS: MINERAL OIL/PETROLAT/WATER TOPICAL CREAM 113 GM JAR TP SCH ×2 (10:22→21:29)
[2016-03-12] MEDS: THIAMINE HCL 100 MG TABLET (FP) PO SCH (21:28)
[2016-03-12] MEDS: ACETAMINOPHEN 325 MG TABLET (FP) PO PRN (21:29)
[2016-03-12] MEDS: QUEtiapine FUMARATE 100 MG TABLET (FP) PO SCH (21:29)
[2016-03-13] MEDS: METHADONE HCL 40 MG DISPERSABLE TABLET PO SCH (06:36)
[2016-03-13] MEDS: COLLOIDAL OATMEAL 1 BAR EACH TP PRN (07:43)
[2016-03-13] MEDS: PRENATAL VITAMINS W/ FOLIC ACID TABLET (FP) PO SCH (10:30)
[2016-03-13] MEDS: ACETAMINOPHEN 325 MG TABLET (FP) PO PRN (10:30)
[2016-03-13] MEDS: PANTOPRAZOLE 40 MG TABLET (FP) PO SCH (10:30)
[2016-03-13] MEDS: CLOTRIMAZOLE/BETAMET DIPROP 15 GM TUBE TP SCH ×2 (10:31→21:17)
[2016-03-13] MEDS: NICOTINE 21 MG/24 HOURS TOPICAL PATCH TD SCH (10:31)
[2016-03-13] MEDS: MINERAL OIL/PETROLAT/WATER TOPICAL CREAM 113 GM JAR TP SCH ×2 (10:31→21:17)
[2016-03-13] MEDS: QUEtiapine FUMARATE 100 MG TABLET (FP) PO SCH (21:17)
[2016-03-13] MEDS: THIAMINE HCL 100 MG TABLET (FP) PO SCH (21:17)
[2016-03-14] MEDS: METHADONE HCL 40 MG DISPERSABLE TABLET PO SCH (06:15)
[2016-03-14] MEDS: PRENATAL VITAMINS W/ FOLIC ACID TABLET (FP) PO SCH (10:01)
[2016-03-14] MEDS: PANTOPRAZOLE 40 MG TABLET (FP) PO SCH (10:01)
[2016-03-14] MEDS: CLOTRIMAZOLE/BETAMET DIPROP 15 GM TUBE TP SCH ×2 (10:01→21:30)
[2016-03-14] MEDS: NICOTINE 21 MG/24 HOURS TOPICAL PATCH TD SCH (10:01)
[2016-03-14] MEDS: MINERAL OIL/PETROLAT/WATER TOPICAL CREAM 113 GM JAR TP SCH ×2 (10:01→21:30)
[2016-03-14] MEDS: QUEtiapine FUMARATE 100 MG TABLET (FP) PO SCH (21:31)
[2016-03-14] MEDS: THIAMINE HCL 100 MG TABLET (FP) PO SCH (21:31)
[2016-03-15] MEDS: METHADONE HCL 40 MG DISPERSABLE TABLET PO SCH (06:17)
[2016-03-15] MEDS: CLOTRIMAZOLE/BETAMET DIPROP 15 GM TUBE TP SCH ×2 (09:58→21:05)
[2016-03-15] MEDS: PANTOPRAZOLE 40 MG TABLET (FP) PO SCH (09:58)
[2016-03-15] MEDS: NICOTINE 21 MG/24 HOURS TOPICAL PATCH TD SCH (09:58)
[2016-03-15] MEDS: PRENATAL VITAMINS W/ FOLIC ACID TABLET (FP) PO SCH (09:58)
[2016-03-15] MEDS: MINERAL OIL/PETROLAT/WATER TOPICAL CREAM 113 GM JAR TP SCH ×2 (10:01→21:04)
[2016-03-15] MEDS: QUEtiapine FUMARATE 100 MG TABLET (FP) PO SCH (21:05)
[2016-03-15] MEDS: THIAMINE HCL 100 MG TABLET (FP) PO SCH (21:05)
[2016-03-15] MEDS: ACETAMINOPHEN 325 MG TABLET (FP) PO PRN (21:05)
[2016-03-16] MEDS: METHADONE HCL 40 MG DISPERSABLE TABLET PO SCH (06:07)
[2016-03-16] MEDS: PRENATAL VITAMINS W/ FOLIC ACID TABLET (FP) PO SCH (10:33)
[2016-03-16] MEDS: CLOTRIMAZOLE/BETAMET DIPROP 15 GM TUBE TP SCH ×2 (10:33→21:06)
[2016-03-16] MEDS: PANTOPRAZOLE 40 MG TABLET (FP) PO SCH (10:33)
[2016-03-16] MEDS: MINERAL OIL/PETROLAT/WATER TOPICAL CREAM 113 GM JAR TP SCH ×2 (10:34→21:06)
[2016-03-16] MEDS: ACETAMINOPHEN 325 MG TABLET (FP) PO PRN (10:34)
[2016-03-16] MEDS: NICOTINE 21 MG/24 HOURS TOPICAL PATCH TD SCH (10:35)
[2016-03-16] MEDS: QUEtiapine FUMARATE 100 MG TABLET (FP) PO SCH (21:07)
[2016-03-16] MEDS: THIAMINE HCL 100 MG TABLET (FP) PO SCH (21:07)
[2016-03-17] MEDS: METHADONE HCL 40 MG DISPERSABLE TABLET PO SCH (05:51)
[2016-03-17] MEDS: ACETAMINOPHEN 325 MG TABLET (FP) PO PRN ×3 (10:37→21:09)
[2016-03-17] MEDS: PANTOPRAZOLE 40 MG TABLET (FP) PO SCH (10:37)
[2016-03-17] MEDS: PRENATAL VITAMINS W/ FOLIC ACID TABLET (FP) PO SCH (10:37)
[2016-03-17] MEDS: NICOTINE 21 MG/24 HOURS TOPICAL PATCH TD SCH (10:53)
[2016-03-17] MEDS: CLOTRIMAZOLE/BETAMET DIPROP 15 GM TUBE TP SCH ×2 (10:53→21:09)
[2016-03-17] MEDS: MINERAL OIL/PETROLAT/WATER TOPICAL CREAM 113 GM JAR TP SCH ×2 (10:53→21:09)
[2016-03-17] MEDS: QUEtiapine FUMARATE 100 MG TABLET (FP) PO SCH (21:09)
[2016-03-17] MEDS: THIAMINE HCL 100 MG TABLET (FP) PO SCH (21:09)
[2016-03-18] MEDS: METHADONE HCL 40 MG DISPERSABLE TABLET PO SCH (06:21)
[2016-03-18] MEDS: PANTOPRAZOLE 40 MG TABLET (FP) PO SCH (10:23)
[2016-03-18] MEDS: ACETAMINOPHEN 325 MG TABLET (FP) PO PRN ×2 (10:23→21:09)
[2016-03-18] MEDS: PRENATAL VITAMINS W/ FOLIC ACID TABLET (FP) PO SCH (10:23)
[2016-03-18] MEDS: NICOTINE 21 MG/24 HOURS TOPICAL PATCH TD SCH (10:24)
[2016-03-18] MEDS: CLOTRIMAZOLE/BETAMET DIPROP 15 GM TUBE TP SCH ×2 (10:24→21:09)
[2016-03-18] MEDS: MINERAL OIL/PETROLAT/WATER TOPICAL CREAM 113 GM JAR TP SCH ×2 (10:24→21:09)
[2016-03-18] MEDS: QUEtiapine FUMARATE 100 MG TABLET (FP) PO SCH (21:09)
[2016-03-18] MEDS: THIAMINE HCL 100 MG TABLET (FP) PO SCH (21:09)
[2016-03-19] MEDS: METHADONE HCL 40 MG DISPERSABLE TABLET PO SCH (06:18)
[2016-03-19] MEDS: PRENATAL VITAMINS W/ FOLIC ACID TABLET (FP) PO SCH (10:26)
[2016-03-19] MEDS: PANTOPRAZOLE 40 MG TABLET (FP) PO SCH (10:27)
[2016-03-19] MEDS: ACETAMINOPHEN 325 MG TABLET (FP) PO PRN ×2 (10:27→21:06)
[2016-03-19] MEDS: MINERAL OIL/PETROLAT/WATER TOPICAL CREAM 113 GM JAR TP SCH ×2 (10:41→22:12)
[2016-03-19] MEDS: NICOTINE 21 MG/24 HOURS TOPICAL PATCH TD SCH (10:41)
[2016-03-19] MEDS: CLOTRIMAZOLE/BETAMET DIPROP 15 GM TUBE TP SCH ×2 (10:41→21:05)
[2016-03-19] MEDS: COLLOIDAL OATMEAL 1 BAR EACH TP PRN (14:10)
[2016-03-19] MEDS: QUEtiapine FUMARATE 100 MG TABLET (FP) PO SCH (21:06)
[2016-03-19] MEDS: THIAMINE HCL 100 MG TABLET (FP) PO SCH (21:06)
[2016-03-20] MEDS: METHADONE HCL 40 MG DISPERSABLE TABLET PO SCH (06:01)
[2016-03-20] MEDS: MINERAL OIL/PETROLAT/WATER TOPICAL CREAM 113 GM JAR TP SCH ×2 (10:13→21:10)
[2016-03-20] MEDS: PANTOPRAZOLE 40 MG TABLET (FP) PO SCH (10:13)
[2016-03-20] MEDS: PRENATAL VITAMINS W/ FOLIC ACID TABLET (FP) PO SCH (10:13)
[2016-03-20] MEDS: CLOTRIMAZOLE/BETAMET DIPROP 15 GM TUBE TP SCH ×2 (10:13→21:10)
[2016-03-20] MEDS: NICOTINE 21 MG/24 HOURS TOPICAL PATCH TD SCH (10:13)
[2016-03-20] MEDS: ACETAMINOPHEN 325 MG TABLET (FP) PO PRN ×2 (10:15→21:10)
[2016-03-20] MEDS: THIAMINE HCL 100 MG TABLET (FP) PO SCH (21:10)
[2016-03-20] MEDS: QUEtiapine FUMARATE 100 MG TABLET (FP) PO SCH (21:10)
[2016-03-21] MEDS: METHADONE HCL 40 MG DISPERSABLE TABLET PO SCH (06:13)
[2016-03-21] MEDS: COLLOIDAL OATMEAL 1 BAR EACH TP PRN (06:15)
[2016-03-21] MEDS: PANTOPRAZOLE 40 MG TABLET (FP) PO SCH (10:00)
[2016-03-21] MEDS: MINERAL OIL/PETROLAT/WATER TOPICAL CREAM 113 GM JAR TP SCH ×2 (10:00→21:09)
[2016-03-21] MEDS: CLOTRIMAZOLE/BETAMET DIPROP 15 GM TUBE TP SCH ×2 (10:00→21:09)
[2016-03-21] MEDS: NICOTINE 21 MG/24 HOURS TOPICAL PATCH TD SCH (10:00)
[2016-03-21] MEDS: PRENATAL VITAMINS W/ FOLIC ACID TABLET (FP) PO SCH (10:00)
[2016-03-21] MEDS: ACETAMINOPHEN 325 MG TABLET (FP) PO PRN ×2 (10:01→21:08)
[2016-03-21] MEDS: QUEtiapine FUMARATE 100 MG TABLET (FP) PO SCH (21:06)
[2016-03-21] MEDS: THIAMINE HCL 100 MG TABLET (FP) PO SCH (21:06)
[2016-03-22] MEDS: METHADONE HCL 40 MG DISPERSABLE TABLET PO SCH (06:23)
[2016-03-22] MEDS: PANTOPRAZOLE 40 MG TABLET (FP) PO SCH (10:00)
[2016-03-22] MEDS: PRENATAL VITAMINS W/ FOLIC ACID TABLET (FP) PO SCH (10:00)
[2016-03-22] MEDS: MINERAL OIL/PETROLAT/WATER TOPICAL CREAM 113 GM JAR TP SCH ×2 (10:00→21:12)
[2016-03-22] MEDS: ACETAMINOPHEN 325 MG TABLET (FP) PO PRN ×2 (10:01→21:10)
[2016-03-22] MEDS: NICOTINE 21 MG/24 HOURS TOPICAL PATCH TD SCH (10:01)
[2016-03-22] MEDS: CLOTRIMAZOLE/BETAMET DIPROP 15 GM TUBE TP SCH ×2 (10:01→21:12)
[2016-03-22] MEDS: THIAMINE HCL 100 MG TABLET (FP) PO SCH (21:10)
[2016-03-22] MEDS: QUEtiapine FUMARATE 100 MG TABLET (FP) PO SCH (21:10)
[2016-03-23] MEDS: METHADONE HCL 40 MG DISPERSABLE TABLET PO SCH (06:08)
[2016-03-23] MEDS: PRENATAL VITAMINS W/ FOLIC ACID TABLET (FP) PO SCH (10:10)
[2016-03-23] MEDS: CLOTRIMAZOLE/BETAMET DIPROP 15 GM TUBE TP SCH ×2 (10:11→21:13)
[2016-03-23] MEDS: MINERAL OIL/PETROLAT/WATER TOPICAL CREAM 113 GM JAR TP SCH ×2 (10:11→21:13)
[2016-03-23] MEDS: NICOTINE 21 MG/24 HOURS TOPICAL PATCH TD SCH (10:11)
[2016-03-23] MEDS: PANTOPRAZOLE 40 MG TABLET (FP) PO SCH (10:11)
[2016-03-23] MEDS: ACETAMINOPHEN 325 MG TABLET (FP) PO PRN ×2 (10:12→21:13)
[2016-03-23] MEDS: COLLOIDAL OATMEAL 1 BAR EACH TP PRN (14:10)
[2016-03-23] MEDS: QUEtiapine FUMARATE 100 MG TABLET (FP) PO SCH (21:13)
[2016-03-23] MEDS: THIAMINE HCL 100 MG TABLET (FP) PO SCH (21:13)
[2016-03-24] MEDS: METHADONE HCL 40 MG DISPERSABLE TABLET PO SCH (06:11)
[2016-03-24 07:03] VITALS: BP 124/71; PULSE 62; TEMP 98.9
--- NOTE | 2016-03-24 09:56 | PN ---
Psychiatric Progress Note Vital Signs: Vital Signs Period Temp Pulse Resp BP Sys/Max Pulse Ox Last 24 Hr 98.9 F 62 16-18 124/71 Date of Session: 03/24/16 Chief Complaint:: discharge visit HPI: Patient has addressed alcohol,cocaine, sedative, nicotine dependence, MDMA abuse comorbid Bipolar disorder,drug induced mood disorder, insomnia. ROS: hepatitis C Current Medications: Active Medications Generic Name Dose Route Start Last Admin Trade Name Freq PRN Reason Stop Dose Admin Acetaminophen 650 mg 02/28/16 15:24 03/23/16 21:13 Tylenol - PO 650 mg Q4H PRN Administration FEVER OR PAIN Al Hydroxide/Mg Hydroxide 30 ml 02/28/16 15:24 03/02/16 10:03 Mylanta Oral Suspension - PO 30 ml Q6H PRN Administration DYSPEPSIA Clotrimazole 1 applic 03/02/16 22:00 03/23/16 21:13 Lotrisone Cream (Small Tube) TP Not Given BID KYLE Colloidal Oatmeal 1 applic 03/02/16 13:05 03/23/16 14:10 Aveeno Soap - TP 1 bar DAILY PRN Administration HYGEINE Diphenhydramine HCl 50 mg 02/28/16 15:24 Benadryl - PO HSMR1 PRN FOR ITCHING Eucalyptus/Menthol/Phenol/Sorbitol 1 each 02/28/16 15:24 Cepastat Lozenge - MM Q4H PRN SORE THROAT Guaifenesin 10 ml 02/28/16 15:24 Robitussin Dm - PO Q6H PRN COUGH Ibuprofen 400 mg 02/28/16 15:24 03/05/16 10:16 Motrin - PO 400 mg Q6H PRN Administration PAIN Loperamide HCl 4 mg 02/28/16 15:24 02/29/16 19:24 Imodium - PO 4 mg Q6H PRN Administration DIARRHEA Magnesium Hydroxide 30 ml 02/28/16 15:24 Milk Of Magnesia - PO DAILY PRN CONSTIPATION Methadone HCl 80 mg 03/19/16 06:00 03/24/16 06:11 Dolophine - PO 03/25/16 05:59 80 mg DAILY@0600 KYLE Administration Multi-Ingredient Lotion 1 applic 03/04/16 22:00 03/23/16 21:13 Eucerin (Small Jar) - TP Not Given BID KYLE Nicotine 21 mg 02/28/16 15:48 03/23/16 10:11 Nicoderm Patch - TD Not Given DAILY KYLE Pantoprazole Sodium 40 mg 03/03/16 10:00 03/23/16 10:11 Protonix - PO 40 mg DAILY KYLE Administration Multivit/Folic Acid/Iron 1 tab 02/29/16 10:00 03/23/16 10:10 Vitamins (Sjr) - PO 1 tab DAILY KYLE Administration Pseudoephedrine/Triprolidine 1 combo 02/28/16 15:24 Actifed - PO TID PRN NASAL CONGESTION Quetiapine Fumarate 100 mg 02/29/16 22:00 03/23/16 21:13 Seroquel - PO 100 mg HS KYLE Administration Thiamine HCl 100 mg 02/28/16 22:00 03/23/16 21:13 Vitamin B1 - PO 100 mg HS KYLE Administration Current Side Effect: No Lab tests ordered: No Lab tests reviewed: Yes Provider note:: Patient has completed this inpatient rehabilitation treatment and met his goals, will continue to address his issues at [facility] outpatient program. PAtient gained insight into his problem and motivated to continue maintain abstinence. Patient continues to respond well to medications, he reports feeling better, (Seroquel, Depakote and Celexa) medications well tolerated , scripts provided for 30 days, patient was encouraged to take medications as directed and f/u with his appointments, patient is stable for discharge. Total face to face time:: 30 Mental Status Exam - Mental Status Exam Alert and Oriented to: Time, Place, Person Cognitive Function: Good Patient Appearance: Well Groomed Mood: Hopeful Affect: Appropriate Patient Behavior: Appropriate, Cooperative Speech Pattern: Clear, Appropriate Voice Loudness: Normal Thought Process: Intact, Goal Oriented Thought Disorder: Not Present Hallucinations: Denies Suicidal Ideation: Denies Homicidal Ideation: Denies Insight/Judgement: Fair Sleep: Fair Appetite: Fair Muscle strength/Tone: Normal Psychiatric Treatment Plan - Problem List (1) Alcohol dependence Current Visit: Yes Qualifiers: Substance use status: uncomplicated Qualified Code(s): F10.20 - Alcohol dependence, uncomplicated (2) Cocaine dependence Current Visit: Yes Qualifiers: Substance use status: uncomplicated Qualified Code(s): F14.20 - Cocaine dependence, uncomplicated (3) Insomnia Current Visit: Yes (4) Nicotine dependence Current Visit: Yes Qualifiers: Nicotine product type: cigarettes Substance use status: uncomplicated Qualified Code(s): F17.210 - Nicotine dependence, cigarettes, uncomplicated (5) Opioid dependence on agonist therapy Current Visit: Yes (6) Sedative dependence Current Visit: Yes (7) Bipolar disorder Current Visit: Yes Comment: History reported by patient. (8) Drug-induced mood disorder Current Visit: Yes
[2016-03-24] MEDS: MINERAL OIL/PETROLAT/WATER TOPICAL CREAM 113 GM JAR TP SCH (10:27)
[2016-03-24] MEDS: CLOTRIMAZOLE/BETAMET DIPROP 15 GM TUBE TP SCH (10:27)
[2016-03-24] MEDS: PANTOPRAZOLE 40 MG TABLET (FP) PO SCH (10:28)
[2016-03-24] MEDS: PRENATAL VITAMINS W/ FOLIC ACID TABLET (FP) PO SCH (10:28)
[2016-03-24] MEDS: ACETAMINOPHEN 325 MG TABLET (FP) PO PRN (10:28)
[2016-03-24] MEDS: NICOTINE 21 MG/24 HOURS TOPICAL PATCH TD SCH (10:53)
== END 2016-03-24 11:15 | disposition home or self-care (01) | DRG 772 ==
LOC: YASAS 14:45 → Y5N 14:46
PROVIDERS: ADMIT Psychiatry & Neurology Psychiatry; ATTEND Psychiatry & Neurology Psychiatry
PROC: HZ42ZZZ Group Counseling for Substance Abuse Treatment, Cognitive-Behavioral (ICD-10-PCS; principal; 2016-03-24)
DX: F11.20 Opioid dependence, uncomplicated (principal); F13.20 Sedative, hypnotic or anxiolytic dependence, uncomplicated; F10.20 Alcohol dependence, uncomplicated; F14.20 Cocaine dependence, uncomplicated; F17.210 Nicotine dependence, cigarettes, uncomplicated; F19.24 Other psychoactive substance dependence with psychoactive substance-induced mood disorder; F31.9 Bipolar disorder, unspecified; B18.2 Chronic viral hepatitis C; G47.00 Insomnia, unspecified; Z85.89 Personal history of malignant neoplasm of other organs and systems

== ENCOUNTER 2017-04-27 09:34 | Inpatient (IN) | payer OTHER ==
[2017-04-27 11:24] VITALS: BMI 25.8
--- NOTE | 2017-04-27 13:46 | HP ---
COWS - Scale Resting Pulse: 1= [place] 81-100 Sweatin= Chills/Flushing Restless Observation: 3= Extraneous Movement Pupil Size: 0= Normal to Room Light Bone or Joint Aches: 2= Severe Diffuse Aches Runny Nose/ Eye Tearin= Runny Nose/Eyes GI Upset > 30mins: 2= Nausea/Diarrhea Tremor Observation: 2= Slight Tremor Visible Yawning Observation: 2= >3x During Session Anxiety or Irritability: 2=Irritable/Anxious Goose Flesh Skin: 3=Piloerection COWS Score: 20 CIWA Score - CIWA Score Nausea/Vomitin-Mild Nausea/No Vomiting Muscle Tremors: 4-Moderate,w/Arms Extend Anxiety: 4-Mod. Anxious/Guarded Agitation: 4-Moderately Restless Paroxysmal Sweats: 1-Minimal Palms Moist Orientation: 0-Oriented Tacttile Disturbances: 1-Very Mild Itch/Numbness Auditory Disturbances: 0-None Visual Disturbances: 0-None Headache: 1-Very Mild CIWA-Ar Total Score: 16 Admission ROS S - HPI Chief Complaint: withdrawal sx methadone program x 2 years 35 mg last dose "a week ago" program knows that the patient does not want to return to the program Allergies/Adverse Reactions: Allergies Allergy/AdvReac Type Severity Reaction Status Date / Time No Known Allergies Allergy Verified 04/27/17 12:33 History of Present Illness: 36 years old male with long history of xanax heroin nicotine dependent hepatitis c treated has bipolar ii is admitted to detox Exam Limitations: No Limitations - Ebola screening Have you traveled outside of the country in the last 21 days: No (N) Have you had contact with anyone from an Ebola affected area: No Have you been sick,other than usual withdrawal symptoms: No Do you have a fever: No - Review of Systems Constitutional: Loss of Appetite, Changes in sleep, Unintentional Wgt. Loss EENT: reports: Blurred Vision (eye glasses) Respiratory: reports: Productive cough (yellowish) Cardiac: reports: No Symptoms Reported GI: reports: Diarrhea, Nausea, Poor Appetite, Poor Fluid Intake, Abdominal cramping : reports: No Symptoms Reported Musculoskeletal: reports: Back Pain, Joint Pain, Muscle Pain, Neck Pain Integumentary: reports: Change in Color (iv heroin both inner elbows) Neuro: reports: Tremors Endocrine: reports: No Symptoms Reported Hematology: reports: No Symptoms Reported Psychiatric: reports: Judgement Intact, Orientated x3, Anxious, Depressed Other Systems: Reviewed and Negative Patient History - Patient Medical History Hx Anemia: No Hx Asthma: No Hx Chronic Obstructive Pulmonary Disease (COPD): No Hx Cancer: No Hx Cardiac Disorders: No Hx Congestive Heart Failure: No Hx Hypertension: No Hx Hypercholesterolemia: No Hx Pacemaker: No HX Cerebrovascular Accident: No Hx Seizures: No Hx Dementia: No Hx Diabetes: No Hx Gastrointestinal Disorders: No Hx Liver Disease: No Hx Genitourinary Disorders: No Hx Sexually Transmitted Disorders: No Hx Renal Disease (ESRD): No Hx Thyroid Disease: No Hx Human Immunodeficiency Virus (HIV): No (negative) Hx Hepatitis C: Yes (treated) Hx Depression: No Hx Suicide Attempt: Yes (cut left wrist in 2013) Hx Bipolar Disorder: Yes Hx Schizophrenia: No - Patient Surgical History Past Surgical History: Yes Hx Neurologic Surgery: No Hx Cataract Extraction: No Hx Cardiac Surgery: No Hx Lung Surgery: No Hx Breast Surgery: No Hx Breast Biopsy: No Hx Abdominal Surgery: Yes (Peritoneal mesothelioma 2012) Hx Appendectomy: No Hx Cholecystectomy: No Hx Genitourinary Surgery: No Hx Orthopedic Surgery: No - PPD History Previous Implant?: Yes Documented Results: Negative w/proof Implanted On Prior R Admission?: Yes Date: 11/24/15 Results: 0 mm PPD to be Administered?: Yes - Smoking Cessation Smoking history: Current every day smoker Have you smoked in the past 12 months: Yes Aproximately how many cigarettes per day: 4 Cigars Per Day: 0 Hx Chewing Tobacco Use: No Initiated information on smoking cessation: Yes 'Breaking Loose' booklet given: 04/27/17 - Substance & Tx. History Hx Alcohol Use: Yes Hx Substance Use: Yes Substance Use Type: Alcohol, Cocaine, Opiates, Tranquilizers Hx Substance Use Treatment: Yes (02/2016 [facility] - Substances Abused Heroin Route: Injection Frequency: Daily Amount used: 13 bags Age of first use: 12 Date of Last Use: 04/26/17 Cocaine Route: Injection Frequency: Daily Amount used: $50 Age of first use: 12 Date of Last Use: 04/26/17 Alcohol-beer/vodka Route: Oral Frequency: Daily Amount used: 2-6 pks./2 pts. Age of first use: 15 Date of Last Use: 04/26/17 Xanax Route: Oral Frequency: Daily Amount used: 12 mg. Age of first use: 14 Date of Last Use: 04/26/17 Family Disease History - Family Disease History Family Disease History: Other: Father (no contact) Admission Physical Exam [facility] - Vital Signs Vital Signs: Vital Signs - 24 hr 04/27/17 11:22 Temperature 98.2 F Pulse Rate 85 Respiratory 20 Rate Blood Pressure 129/68 - Physical General Appearance: Yes: Appropriately Dressed, Moderate Distress, Thin, Tremorous, Irritable, Sweating, Anxious HEENTM: Yes: Hearing grossly Normal, Normal ENT Inspection, Normocephalic, Normal Voice Respiratory: Yes: Chest Non-Tender, No Respiratory Distress, No Accessory Muscle Use, Hyperresonant Neck: Yes: Supple, Trachea in good position Breast: Yes: Breasts Symetrical Cardiology: Yes: Regular Rhythm, Regular Rate, S1, S2 Abdominal: Yes: Normal Bowel Sounds, Non Tender, Soft Genitourinary: Yes: Within Normal Limits Back: Yes: Normal Inspection Musculoskeletal: Yes: full range of Motion, Gait Steady, Back pain Extremities: Yes: Normal Inspection Neurological: Yes: Fully Oriented, Alert, Motor Strength 5/5, Normal Response, Depressed Affect Integumentary: Yes: Warm, Track Christie Lymphatic: Yes: Within Normal Limits - Diagnostic (1) Alcohol dependence with uncomplicated withdrawal Current Visit: Yes Status: Acute (2) Nicotine dependence Current Visit: No Status: Acute Qualifiers: Nicotine product type: cigarettes Substance use status: unspecified nicotine-induced disorder Qualified Code(s): F17.219 - Nicotine dependence, cigarettes, with unspecified nicotine-induced disorders (3) Hepatitis C Current Visit: Yes Status: Resolved Qualifiers: Viral hepatitis chronicity: chronic Hepatic coma status: without hepatic coma Qualified Code(s): B18.2 - Chronic viral hepatitis C (4) Hx of malignant mesothelioma Current Visit: Yes Status: Resolved Comment: in remission 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 Current Visit: Yes Status: Acute (6) Bipolar I disorder, most recent episode depressed Current Visit: Yes Status: Suspected Cleared for Admission [facility] - Detox or Rehab [facility] Level of Care: Medically Managed Detox Regimen/Protocol: Methadone/Valium [facility] Breath Alcohol Content Breath Alcohol Content: 0 Urine Drug Screen - Results Drug Screen Negative: No Urine Drug Screen Results: ROSALIE-Cocaine, OPI-Opiates, BZO-Benzodiazepines, MTD- Methadone, OXY-Oxycodone
[2017-04-27] MEDS ORDERED: MENTHOL/PHENOL 1 EACH UD MM PRN (13:48)
[2017-04-27] MEDS ORDERED: guaiFENesin/D-METHORPHAN HB 10 ML UNIT-DOSE CUPS PO PRN (13:48)
[2017-04-27] MEDS ORDERED: MAGNESIUM HYDROX 2400MG/30ML ORAL SUSPENSION 30 ML CUP PO PRN (13:48)
[2017-04-27] MEDS ORDERED: P-EPHED 60MG/TRIPROLIDI 2.5MG TABLET PO PRN (13:48)
[2017-04-27] MEDS ORDERED: NICOTINE POLACRILEX 2 MG GUM BC PRN (13:48)
[2017-04-27] MEDS ORDERED: IBUPROFEN 400 MG TABLET (FP) PO PRN (13:48)
[2017-04-27] MEDS ORDERED: ACETAMINOPHEN 325 MG TABLET (FP) PO PRN (13:48)
[2017-04-27] MEDS ORDERED: MAGNESIUM CITRATE 300 ML BOTTLE PO PRN (13:48)
[2017-04-27] MEDS ORDERED: MAG HYDROX/AL HYDROX/SIMETH 30 ML UNIT-DOSE CUP PO PRN (13:48)
[2017-04-27] MEDS ORDERED: LOPERAMIDE HCL 2 MG CAPSULE PO PRN (13:48)
--- NOTE | 2017-04-27 15:49 | EKG ---
Test Reason : Blood Pressure : / mmHG Vent. Rate : 064 BPM Atrial Rate : 064 BPM P-R Int : 132 ms QRS Dur : 094 ms QT Int : 418 ms P-R-T Axes : 028 086 059 degrees QTc Int : 431 ms NORMAL SINUS RHYTHM NORMAL ECG NO PREVIOUS ECGS AVAILABLE Confirmed by MD Terri, Kishore ([id number]) on 04/27/2017 3:49:07 PM Referred By: Confirmed By:Kishore Murray MD
[2017-04-27] MEDS ORDERED: METHADONE HCL 10 MG TABLET (FOR DETOX USE ONLY) PO ONE ×2 (16:15→23:00)
[2017-04-27] MEDS ORDERED: diazePAM 5 MG TABLET PO ONE (16:15)
[2017-04-27] MEDS: METHOCARBAMOL 500 MG TABLET PO SCH ×3 (17:18→22:14)
--- NOTE | 2017-04-27 17:22 | CONSULT ---
[facility] Psychiatric Consult - Data Date of interview: 04/27/17 Admission source: [facility] Identifying data: Patient was approached THREE times for a psychiatric interview.Mr El mclain declines to talk to this scientific writer." I don't want to talk now.I am tired.I don't need psychiatrists." Encounter witnessed by FLAQUITA Martin.Examination waived until patient decides to coooperate.
[2017-04-27 18:12] LABS: URINE APPEARANCE CLEAR; URINE BILIRUBIN NEGATIVE (NEGATIVE); URINE BLOOD NEGATIVE (NEGATIVE); URINE COLOR YELLOW; URINE GLUCOSE (UA) NEGATIVE (NEGATIVE); URINE KETONE NEGATIVE (NEGATIVE); URINE LEUK ESTERASE NEGATIVE (NEGATIVE); URINE NITRITE NEGATIVE (NEGATIVE); URINE PROTEIN NEGATIVE (NEGATIVE); URINE UROBILINOGEN NEGATIVE mg/dL (0.2-1.0)
[2017-04-27] MEDS ORDERED: THIAMINE HCL 100 MG TABLET (FP) PO SCH (22:00)
[2017-04-27] MEDS ORDERED: LIDOCAINE PATCH REMOVAL MC SCH (22:00)
[2017-04-27] MEDS: diazePAM 5 MG TABLET PO SCH (22:14)
[2017-04-28] MEDS: diazePAM 5 MG TABLET PO PRN ×2 (00:14→09:49)
[2017-04-28] MEDS: diazePAM 5 MG TABLET PO SCH ×2 (05:30→13:55)
[2017-04-28 09:06] VITALS: PULSE 64
[2017-04-28] MEDS: METHOCARBAMOL 500 MG TABLET PO SCH ×2 (09:49→13:55)
[2017-04-28] MEDS ORDERED: NICOTINE 14 MG/24 HOURS TOPICAL PATCH TD SCH (10:00)
[2017-04-28] MEDS ORDERED: METHADONE HCL 10 MG TABLET (FOR DETOX USE ONLY) PO SCH (10:00)
[2017-04-28] MEDS ORDERED: LIDOCAINE 5% TOPICAL PATCH TP SCH (10:00)
[2017-04-28] MEDS ORDERED: PRENATAL VITAMINS W/ FOLIC ACID TABLET (FP) PO SCH (10:00)
[2017-04-28 10:05] LABS: HEMATOCRIT 38.6 % (35.4-49); HEMOGLOBIN 13.2 GM/dL (11.7-16.9); MCH 31.2 pg (25.7-33.7); MCHC 34.1 g/dl (32.0-35.9); MEAN CELL VOLUME 91.5 fl (80-96); MEAN PLT VOLUME 11.3 fl (7.5-11.1); PLATELET COUNT 157 K/MM3 (134-434); RBC 4.22 M/mm3 (4.00-5.60); RDW 13.1 % (11.9-15.9); WHITE BLOOD COUNT 7.8 K/mm3 (4.0-10.0)
[2017-04-28 10:18] LABS: ALBUMIN 3.9 g/dl (3.4-5.0); ANION GAP 9 (8-16); BLOOD UREA NITROGEN 19 mg/dL (7-18); CALCIUM 8.8 mg/dL (8.5-10.1); CHLORIDE 104 mmol/L (98-107); CO2 25 mmol/L (21-32); GLUCOSE,RANDOM 151 mg/dL (74-106); POTASSIUM 4.2 mmol/L (3.5-5.1); SGOT/AST 14 U/L (15-37); SODIUM 138 mmol/L (136-145)
[2017-04-28 10:21] LABS: ALK PHOS 80 U/L (45-117); BILIRUBIN,TOTAL 0.5 mg/dL (0.2-1.0); CREATININE 1.1 mg/dL (0.7-1.3); SGPT/ALT 14 U/L (12-78); TOT PROT 7.7 g/dl (6.4-8.2)
[2017-04-28 13:10] VITALS: BP 110/74; TEMP 98.1
--- NOTE | 2017-04-28 13:36 | PN ---
[facility] CIWA - CIWA Score Nausea/Vomitin-No Nausea/No Vomiting Muscle Tremors: 4-Moderate,w/Arms Extend Anxiety: 4-Mod. Anxious/Guarded Agitation: 4-Moderately Restless Paroxysmal Sweats: 1-Minimal Palms Moist Orientation: 0-Oriented Tacttile Disturbances: 3-Moderate Itch/Numb/Burn Auditory Disturbances: 0-None Visual Disturbances: 0-None Headache: 0-None Present CIWA-Ar Total Score: 16 [facility] COWS - Scale Resting Pulse: 0= [place] 80 or Below Sweatin= Chills/Flushing Restless Observation: 3= Extraneous Movement Pupil Size: 0= Normal to Room Light Bone or Joint Aches: 4=Acute Joint/Muscle Pain Runny Nose/ Eye Tearin= Nasal Congestion GI Upset > 30mins: 1= Stomach Cramp Tremor Observation of Outstretched Hands: 1= Tremor [place], Not Seen Yawning Observation: 2= >3x During Session Anxiety or Irritability: 2=Irritable/Anxious Goose Flesh Skin: 0=Smooth Skin COWS Score: 15 [facility] Progress Note (SOAP) Subjective: ANXIETY,SWEATS/CHILLS,IRRITABILITY,MUSCLE ACHES/BACK PAIN,FATIGUE. Objective: 04/28/17 13:36 Vital Signs Temperature 98.1 F 04/28/17 13:09 Pulse Rate 64 04/28/17 13:09 Respiratory Rate 18 04/28/17 13:09 Blood Pressure 110/74 04/28/17 13:09 O2 Sat by Pulse Oximetry (%) Laboratory Last Values WBC 7.8 K/mm3 (4.0-10.0) 04/28/17 06:00 RBC 4.22 M/mm3 (4.00-5.60) 04/28/17 06:00 Hgb 13.2 GM/dL (11.7-16.9) 04/28/17 06:00 Hct 38.6 % (35.4-49) 04/28/17 06:00 MCV 91.5 fl (80-96) 04/28/17 06:00 MCH 31.2 pg (25.7-33.7) 04/28/17 06:00 MCHC 34.1 g/dl (32.0-35.9) 04/28/17 06:00 RDW 13.1 % (11.9-15.9) 04/28/17 06:00 Plt Count 157 K/MM3 (134-434) D 04/28/17 06:00 MPV 11.3 fl (7.5-11.1) H 04/28/17 06:00 Sodium 138 mmol/L (136-145) 04/28/17 06:00 Potassium 4.2 mmol/L (3.5-5.1) 04/28/17 06:00 Chloride 104 mmol/L (98-107) 04/28/17 06:00 Carbon Dioxide 25 mmol/L (21-32) 04/28/17 06:00 Anion Gap 9 (8-16) 04/28/17 06:00 BUN 19 mg/dL (7-18) H D 04/28/17 06:00 Creatinine 1.1 mg/dL (0.7-1.3) 04/28/17 06:00 Creat Clearance w eGFR > 60 (>60) 04/28/17 06:00 Random Glucose 151 mg/dL (74-106) H D 04/28/17 06:00 Calcium 8.8 mg/dL (8.5-10.1) 04/28/17 06:00 Total Bilirubin 0.5 mg/dL (0.2-1.0) D 04/28/17 06:00 AST 14 U/L (15-37) L D 04/28/17 06:00 ALT 14 U/L (12-78) D 04/28/17 06:00 Alkaline Phosphatase 80 U/L (45-117) D 04/28/17 06:00 Total Protein 7.7 g/dl (6.4-8.2) 04/28/17 06:00 Albumin 3.9 g/dl (3.4-5.0) 04/28/17 06:00 Urine Color Yellow 04/27/17 14:00 Urine Appearance Clear 04/27/17 14:00 Urine pH 6.0 (5.0-8.0) 04/27/17 14:00 Ur Specific [place] 1.019 (1.001-1.035) 04/27/17 14:00 Urine Protein Negative (NEGATIVE) 04/27/17 14:00 Urine Glucose (UA) Negative (NEGATIVE) 04/27/17 14:00 Urine Ketones Negative (NEGATIVE) 04/27/17 14:00 Urine Blood Negative (NEGATIVE) 04/27/17 14:00 Urine Nitrite Negative (NEGATIVE) 04/27/17 14:00 Urine Bilirubin Negative (NEGATIVE) 04/27/17 14:00 Urine Urobilinogen Negative mg/dL (0.2-1.0) 04/27/17 14:00 Ur Leukocyte Esterase Negative (NEGATIVE) 04/27/17 14:00 RPR Titer Nonreactive (NONREACTIVE) 04/28/17 06:00 HIV 1&2 Antibody Screen Negative 04/27/17 14:00 HIV P24 Antigen Negative 04/27/17 14:00 Assessment: 04/28/17 13:36 WITHDRAWAL SX Plan: CONTINUE DETOX
--- NOTE | 2017-04-28 17:05 | DS ---
[facility] Detox Discharge Summary Admission Date: 04/27/17 Discharge Date: 04/28/17 - History Present History: Alcohol Dependence, Cocaine Dependence, Opioid Dependence, Sedative Dependence Additional Comments: PATIENT DOES NOT WISH TO STAY TO COMPLETE DETOX REGIMEN. RISKS OF LEAVING DETOX UNIT AGAINST MEDICAL ADVICE AND PRIOR TO COMPLETION OF DETOX REGIMEN EXPLAINED TO PATIENT. PATIENT ADVISED TO GO IMMEDIATELY TO NEAREST ER SHOULD ANT INTOLERABLE DETOX SYMPTOMS DEVELOP AT ANY TIME. PATIENT LEFT DETOX UNIT IN STABLE MEDICAL CONDITION. Pertinent Past History: Nicotine Dependence, History of Malignant Mesothelioma, Bipolar Disorder, Hep C (Treated). - Physical Exam Results Vital Signs: Vital Signs Temperature 98.1 F 04/28/17 13:09 Pulse Rate 64 04/28/17 13:09 Respiratory Rate 18 04/28/17 13:09 Blood Pressure 110/74 04/28/17 13:09 O2 Sat by Pulse Oximetry (%) Pertinent Admission Physical Exam Findings: WITHDRAWAL SYMPTOMS. Laboratory Tests 04/27/17 04/27/17 04/28/17 14:00 14:00 06:00 WBC 7.8 RBC 4.22 Hgb 13.2 Hct 38.6 MCV 91.5 MCH 31.2 MCHC 34.1 RDW 13.1 Plt Count 157 D MPV 11.3 H Sodium Potassium Chloride Carbon Dioxide Anion Gap BUN Creatinine Creat Clearance w eGFR Random Glucose Calcium Total Bilirubin AST ALT Alkaline Phosphatase Total Protein Albumin Urine Color Yellow Urine Appearance Clear Urine pH 6.0 Ur Specific [place] 1.019 Urine Protein Negative Urine Glucose (UA) Negative Urine Ketones Negative Urine Blood Negative Urine Nitrite Negative Urine Bilirubin Negative Urine Urobilinogen Negative Ur Leukocyte Esterase Negative RPR Titer HIV 1&2 Antibody Screen Negative HIV P24 Antigen Negative 04/28/17 04/28/17 06:00 06:00 WBC RBC Hgb Hct MCV MCH MCHC RDW Plt Count MPV Sodium 138 Potassium 4.2 Chloride 104 Carbon Dioxide 25 Anion Gap 9 BUN 19 H D Creatinine 1.1 Creat Clearance w eGFR > 60 Random Glucose 151 H D Calcium 8.8 Total Bilirubin 0.5 D AST 14 L D ALT 14 D Alkaline Phosphatase 80 D Total Protein 7.7 Albumin 3.9 Urine Color Urine Appearance Urine pH Ur Specific [place] Urine Protein Urine Glucose (UA) Urine Ketones Urine Blood Urine Nitrite Urine Bilirubin Urine Urobilinogen Ur Leukocyte Esterase RPR Titer Nonreactive HIV 1&2 Antibody Screen HIV P24 Antigen LABS NOTED. - Treatment Hospital Course: Detoxed Safely - Medication Discharge Medications: Ambulatory Orders Citalopram Hydrobromide [Celexa -] 10 mg PO DAILY #30 tablet 03/24/16 Quetiapine Fumarate [Seroquel] 100 mg PO HS #30 tablet 03/24/16 - Diagnosis (1) Alcohol dependence with uncomplicated withdrawal Status: Acute (2) Cocaine dependence, uncomplicated Status: Acute (3) Nicotine dependence Status: Acute Qualifiers: Nicotine product type: cigarettes Substance use status: unspecified nicotine-induced disorder Qualified Code(s): F17.219 - Nicotine dependence, cigarettes, with unspecified nicotine-induced disorders (4) Opioid dependence with withdrawal Status: Acute 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 Status: Acute (6) Bipolar disorder Status: Chronic Qualifiers: Active/Remission status: remission status unspecified Qualified Code(s): F31.9 - Bipolar disorder, unspecified (7) Hepatitis C Status: Resolved Qualifiers: Viral hepatitis chronicity: chronic Hepatic coma status: without hepatic coma Qualified Code(s): B18.2 - Chronic viral hepatitis C (8) Hx of malignant mesothelioma Status: Resolved - AMA Did Patient Leave Against Medical Advice: Yes (PATIENT DID NOT WISH TO STAY TO COMPLETE DETOX REGIMEN.)
[2017-04-29] MEDS ORDERED: diazePAM 5 MG TABLET PO SCH (10:00)
[2017-04-29] MEDS ORDERED: METHADONE HCL 5 MG TABLET (FOR DETOX USE ONLY) PO SCH (10:00)
[2017-05-01] MEDS ORDERED: METHADONE HCL 10 MG TABLET (FOR DETOX USE ONLY) PO SCH (10:00)
[2017-05-01] MEDS ORDERED: diazePAM 5 MG TABLET PO SCH (10:00)
[2017-05-02] MEDS ORDERED: METHADONE HCL 5 MG TABLET (FOR DETOX USE ONLY) PO SCH (06:00)
== END 2017-04-28 16:58 | disposition left against medical advice (07) | DRG 770 ==
LOC: YASAS 09:34 → Y3N 13:40
PROVIDERS: ADMIT Internal Medicine; ATTEND Internal Medicine
PROC: HZ2ZZZZ Detoxification Services for Substance Abuse Treatment (ICD-10-PCS; principal; 2017-04-27)
DX: F11.23 Opioid dependence with withdrawal (principal); F10.230 Alcohol dependence with withdrawal, uncomplicated; F13.230 Sedative, hypnotic or anxiolytic dependence with withdrawal, uncomplicated; F14.20 Cocaine dependence, uncomplicated; F17.219 Nicotine dependence, cigarettes, with unspecified nicotine-induced disorders; F31.9 Bipolar disorder, unspecified; B18.2 Chronic viral hepatitis C; Z85.89 Personal history of malignant neoplasm of other organs and systems; Z91.5 Personal history of self-harm
CPT/HCPCS: 36415; 80053; 81003; 85027; 86593; 87389; 93005; 93010

== ENCOUNTER 2017-07-01 13:21 | Inpatient (IN) | payer OTHER ==
[2017-07-01 14:03] VITALS: BMI 23.1
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
[2017-07-01] MEDS ORDERED: MAGNESIUM CITRATE 300 ML BOTTLE PO PRN (16:24)
[2017-07-01] MEDS ORDERED: P-EPHED 60MG/TRIPROLIDI 2.5MG TABLET PO PRN (16:24)
[2017-07-01] MEDS ORDERED: MENTHOL/PHENOL 1 EACH UD MM PRN (16:24)
[2017-07-01] MEDS ORDERED: MAGNESIUM HYDROX 2400MG/30ML ORAL SUSPENSION 30 ML CUP PO PRN (16:24)
[2017-07-01] MEDS ORDERED: chlordiazePOXIDE HCL 25 MG CAPSULE PO ONE (16:24)
[2017-07-01] MEDS ORDERED: LOPERAMIDE HCL 2 MG CAPSULE PO PRN (16:24)
[2017-07-01] MEDS ORDERED: guaiFENesin/D-METHORPHAN HB 10 ML UNIT-DOSE CUPS PO PRN (16:24)
[2017-07-01] MEDS ORDERED: MAG HYDROX/AL HYDROX/SIMETH 30 ML UNIT-DOSE CUP PO PRN (16:24)
[2017-07-01] MEDS ORDERED: METHADONE HCL 10 MG TABLET (FOR DETOX USE ONLY) PO ONE ×2 (16:45→23:00)
[2017-07-01] MEDS: chlordiazePOXIDE HCL 25 MG CAPSULE PO SCH ×2 (17:44→22:34)
[2017-07-01] MEDS: NICOTINE 14 MG/24 HOURS TOPICAL PATCH TD SCH (17:46)
[2017-07-01] MEDS: BACITRACIN 15 GM TUBE TOPICAL OINTMENT TP SCH (22:33)
[2017-07-01] MEDS: SULFAMETHOXAZOLE/TRIMETHOPRIM 800MG/160MG D.S. TABLET PO SCH (22:34)
[2017-07-01] MEDS: THIAMINE HCL 100 MG TABLET (FP) PO SCH (22:34)
[2017-07-02] LABS: URINE COLOR YELLOW
[2017-07-02 00:01] LABS: URINE APPEARANCE CLEAR; URINE BILIRUBIN NEGATIVE (<2.0 mg/dL); URINE GLUCOSE (UA) NEGATIVE (NEGATIVE); URINE KETONE NEGATIVE (NEGATIVE); URINE LEUK ESTERASE NEGATIVE (NEGATIVE); URINE NITRITE NEGATIVE (NEGATIVE); URINE PROTEIN NEGATIVE (NEGATIVE); URINE UROBILINOGEN NORMAL mg/dL (0.2-1.0)
[2017-07-02] MEDS: chlordiazePOXIDE HCL 25 MG CAPSULE PO SCH ×4 (05:36→22:21)
--- NOTE | 2017-07-02 09:50 | EKG ---
Test Reason : Blood Pressure : / mmHG Vent. Rate : 049 BPM Atrial Rate : 049 BPM P-R Int : 142 ms QRS Dur : 100 ms QT Int : 472 ms P-R-T Axes : 040 084 062 degrees QTc Int : 426 ms SINUS BRADYCARDIA EARLY REPOLARIZATION WHEN COMPARED WITH ECG OF 27-APR-2017 14:51, NO SIGNIFICANT CHANGE WAS FOUND Confirmed by LISSETT CARDONA MD ([id number]) on 07/02/2017 9:49:35 AM Referred By: Confirmed By:LISSETT CARDONA MD
[2017-07-02] MEDS ORDERED: METHADONE HCL 10 MG TABLET (FOR DETOX USE ONLY) PO SCH (10:00)
[2017-07-02 10:15] LABS: HEMATOCRIT 37.1 % (35.4-49); HEMOGLOBIN 12.6 GM/dL (11.7-16.9); MCH 30.1 pg (25.7-33.7); MCHC 33.8 g/dl (32.0-35.9); MEAN CELL VOLUME 88.9 fl (80-96); MEAN PLT VOLUME 10.7 fl (7.5-11.1); PLATELET COUNT 114 K/MM3 (134-434); RBC 4.18 M/mm3 (4.00-5.60); WHITE BLOOD COUNT 5.7 K/mm3 (4.0-10.0)
[2017-07-02] MEDS: PRENATAL VITAMINS W/ FOLIC ACID TABLET (FP) PO SCH (10:22)
[2017-07-02] MEDS: SULFAMETHOXAZOLE/TRIMETHOPRIM 800MG/160MG D.S. TABLET PO SCH ×2 (10:22→22:21)
[2017-07-02] MEDS: NICOTINE 14 MG/24 HOURS TOPICAL PATCH TD SCH (10:23)
[2017-07-02] MEDS: BACITRACIN 15 GM TUBE TOPICAL OINTMENT TP SCH ×2 (10:23→22:24)
[2017-07-02 10:27] LABS: CHLORIDE 105 mmol/L (98-107); POTASSIUM 3.7 mmol/L (3.5-5.1); SODIUM 141 mmol/L (136-145)
[2017-07-02 10:37] LABS: ALBUMIN 3.3 g/dl (3.4-5.0); ALK PHOS 84 U/L (45-117); ANION GAP 8 (8-16); BILIRUBIN,TOTAL 0.2 mg/dL (0.2-1.0); BLOOD UREA NITROGEN 12 mg/dL (7-18); CALCIUM 8.7 mg/dL (8.5-10.1); CO2 28 mmol/L (21-32); CREATININE 0.7 mg/dL (0.7-1.3); GLUCOSE,RANDOM 77 mg/dL (74-106); SGOT/AST 13 U/L (15-37); SGPT/ALT 11 U/L (12-78); TOT PROT 6.5 g/dl (6.4-8.2)
--- NOTE | 2017-07-02 10:54 | PN ---
[facility] CIWA - CIWA Score Nausea/Vomitin-Mild Nausea/No Vomiting Muscle Tremors: 4-Moderate,w/Arms Extend Anxiety: 4-Mod. Anxious/Guarded Agitation: 4-Moderately Restless Paroxysmal Sweats: 1-Minimal Palms Moist Orientation: 0-Oriented Tacttile Disturbances: 1-Very Mild Itch/Numbness Auditory Disturbances: 0-None Visual Disturbances: 0-None Headache: 1-Very Mild CIWA-Ar Total Score: 16 [facility] COWS - Scale Resting Pulse: 0= [place] 80 or Below Sweatin= Chills/Flushing Restless Observation: 1= Difficult to Sit Still Pupil Size: 0= Normal to Room Light Bone or Joint Aches: 2= Severe Diffuse Aches Runny Nose/ Eye Tearin= Runny Nose/Eyes GI Upset > 30mins: 2= Nausea/Diarrhea Tremor Observation of Outstretched Hands: 2= Slight Tremor Visible Yawning Observation: 2= >3x During Session Anxiety or Irritability: 2=Irritable/Anxious Goose Flesh Skin: 0=Smooth Skin COWS Score: 14 [facility] Progress Note (SOAP) Subjective: joint pain body ache sweat chill hot and cold tremor anxiety restlessness Objective: 07/02/17 10:55 Vital Signs Temperature 97.9 F 07/02/17 10:18 Pulse Rate 56 L 07/02/17 10:18 Respiratory Rate 18 07/02/17 10:18 Blood Pressure 127/56 07/02/17 10:18 O2 Sat by Pulse Oximetry (%) Laboratory Last Values WBC 5.7 K/mm3 (4.0-10.0) 07/02/17 07:00 RBC 4.18 M/mm3 (4.00-5.60) 07/02/17 07:00 Hgb 12.6 GM/dL (11.7-16.9) 07/02/17 07:00 Hct 37.1 % (35.4-49) 07/02/17 07:00 MCV 88.9 fl (80-96) 07/02/17 07:00 MCH 30.1 pg (25.7-33.7) 07/02/17 07:00 MCHC 33.8 g/dl (32.0-35.9) 07/02/17 07:00 RDW 13.0 % (11.9-15.9) 07/02/17 07:00 Plt Count 114 K/MM3 (134-434) L D 07/02/17 07:00 MPV 10.7 fl (7.5-11.1) 07/02/17 07:00 Sodium 141 mmol/L (136-145) 07/02/17 07:00 Potassium 3.7 mmol/L (3.5-5.1) 07/02/17 07:00 Chloride 105 mmol/L (98-107) 07/02/17 07:00 Carbon Dioxide 28 mmol/L (21-32) 07/02/17 07:00 Anion Gap 8 (8-16) 07/02/17 07:00 BUN 12 mg/dL (7-18) D 07/02/17 07:00 Creatinine 0.7 mg/dL (0.7-1.3) D 07/02/17 07:00 Creat Clearance w eGFR > 60 (>60) 07/02/17 07:00 Random Glucose 77 mg/dL (74-106) D 07/02/17 07:00 Calcium 8.7 mg/dL (8.5-10.1) 07/02/17 07:00 Total Bilirubin 0.2 mg/dL (0.2-1.0) D 07/02/17 07:00 AST 13 U/L (15-37) L 07/02/17 07:00 ALT 11 U/L (12-78) L D 07/02/17 07:00 Alkaline Phosphatase 84 U/L (45-117) 07/02/17 07:00 Total Protein 6.5 g/dl (6.4-8.2) 07/02/17 07:00 Albumin 3.3 g/dl (3.4-5.0) L 07/02/17 07:00 Urine Color Yellow 07/01/17 23:00 Urine Appearance Clear 07/01/17 23:00 Urine pH 6.0 (5.0-8.0) 07/01/17 23:00 Ur Specific [place] 1.025 (1.001-1.035) 07/01/17 23:00 Urine Protein Negative (NEGATIVE) 07/01/17 23:00 Urine Glucose (UA) Negative (NEGATIVE) 07/01/17 23:00 Urine Ketones Negative (NEGATIVE) 07/01/17 23:00 Urine Blood Negative (NEGATIVE) 07/01/17 23:00 Urine Nitrite Negative (NEGATIVE) 07/01/17 23:00 Urine Bilirubin Negative (<2.0 mg/dL) 07/01/17 23:00 Urine Urobilinogen Normal mg/dL (0.2-1.0) 07/01/17 23:00 Ur Leukocyte Esterase Negative (NEGATIVE) 07/01/17 23:00 lab noted Assessment: 07/02/17 10:57 withdrawal sx Plan: continue detox
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
[2017-07-02] MEDS: chlordiazePOXIDE HCL 25 MG CAPSULE PO PRN (14:06)
[2017-07-02] MEDS: IBUPROFEN 400 MG TABLET (FP) PO PRN (14:06)
[2017-07-02] MEDS: THIAMINE HCL 100 MG TABLET (FP) PO SCH (22:21)
[2017-07-02] MEDS: QUEtiapine FUMARATE 100 MG TABLET (FP) PO SCH (22:22)
[2017-07-03] MEDS: chlordiazePOXIDE HCL 25 MG CAPSULE PO PRN ×2 (01:08→14:02)
[2017-07-03] MEDS: IBUPROFEN 400 MG TABLET (FP) PO PRN ×3 (01:08→22:25)
[2017-07-03] MEDS ORDERED: hydrOXYzine PAMOATE 50 MG CAPSULE (FP) PO ONE (02:38)
[2017-07-03] MEDS: chlordiazePOXIDE HCL 25 MG CAPSULE PO SCH ×2 (05:39→10:15)
[2017-07-03] MEDS: PRENATAL VITAMINS W/ FOLIC ACID TABLET (FP) PO SCH (10:15)
[2017-07-03] MEDS: SULFAMETHOXAZOLE/TRIMETHOPRIM 800MG/160MG D.S. TABLET PO SCH ×2 (10:15→22:22)
[2017-07-03] MEDS: BACITRACIN 15 GM TUBE TOPICAL OINTMENT TP SCH ×2 (10:15→22:21)
[2017-07-03] MEDS: METHADONE HCL 5 MG TABLET (FOR DETOX USE ONLY) PO SCH (10:15)
[2017-07-03] MEDS: NICOTINE 14 MG/24 HOURS TOPICAL PATCH TD SCH (10:15)
--- NOTE | 2017-07-03 14:59 | PN ---
[facility] CIWA - CIWA Score Nausea/Vomitin Muscle Tremors: 3 Anxiety: 3 Agitation: 2 Paroxysmal Sweats: 1-Minimal Palms Moist Orientation: 0-Oriented Tacttile Disturbances: 1-Very Mild Itch/Numbness Auditory Disturbances: 1-Very Mild Visual Disturbances: 0-None Headache: 2-Mild CIWA-Ar Total Score: 16 [facility] COWS - Scale Resting Pulse: 0= [place] 80 or Below Sweatin= Chills/Flushing Restless Observation: 3= Extraneous Movement Pupil Size: 1= Pupils >than Normal Bone or Joint Aches: 2= Severe Diffuse Aches Runny Nose/ Eye Tearin= Runny Nose/Eyes GI Upset > 30mins: 2= Nausea/Diarrhea Tremor Observation of Outstretched Hands: 2= Slight Tremor Visible Yawning Observation: 1= 1-2x During Session Anxiety or Irritability: 2=Irritable/Anxious Goose Flesh Skin: 0=Smooth Skin COWS Score: 16 [facility] Progress Note (SOAP) Subjective: ALERT,IRRITABLE,ANXIOUS,INTERRUPTED SLEEP,PAIN I THE BODY AND BACK Objective: 07/03/17 14:56 Vital Signs Temperature 97.7 F 07/03/17 14:00 Pulse Rate 64 07/03/17 14:00 Respiratory Rate 16 07/03/17 14:00 Blood Pressure 120/55 07/03/17 14:00 O2 Sat by Pulse Oximetry (%) Laboratory Last Values WBC 5.7 K/mm3 (4.0-10.0) 07/02/17 07:00 RBC 4.18 M/mm3 (4.00-5.60) 07/02/17 07:00 Hgb 12.6 GM/dL (11.7-16.9) 07/02/17 07:00 Hct 37.1 % (35.4-49) 07/02/17 07:00 MCV 88.9 fl (80-96) 07/02/17 07:00 MCH 30.1 pg (25.7-33.7) 07/02/17 07:00 MCHC 33.8 g/dl (32.0-35.9) 07/02/17 07:00 RDW 13.0 % (11.9-15.9) 07/02/17 07:00 Plt Count 114 K/MM3 (134-434) L D 07/02/17 07:00 MPV 10.7 fl (7.5-11.1) 07/02/17 07:00 Sodium 141 mmol/L (136-145) 07/02/17 07:00 Potassium 3.7 mmol/L (3.5-5.1) 07/02/17 07:00 Chloride 105 mmol/L (98-107) 07/02/17 07:00 Carbon Dioxide 28 mmol/L (21-32) 07/02/17 07:00 Anion Gap 8 (8-16) 07/02/17 07:00 BUN 12 mg/dL (7-18) D 07/02/17 07:00 Creatinine 0.7 mg/dL (0.7-1.3) D 07/02/17 07:00 Creat Clearance w eGFR > 60 (>60) 07/02/17 07:00 Random Glucose 77 mg/dL (74-106) D 07/02/17 07:00 Calcium 8.7 mg/dL (8.5-10.1) 07/02/17 07:00 Total Bilirubin 0.2 mg/dL (0.2-1.0) D 07/02/17 07:00 AST 13 U/L (15-37) L 07/02/17 07:00 ALT 11 U/L (12-78) L D 07/02/17 07:00 Alkaline Phosphatase 84 U/L (45-117) 07/02/17 07:00 Total Protein 6.5 g/dl (6.4-8.2) 07/02/17 07:00 Albumin 3.3 g/dl (3.4-5.0) L 07/02/17 07:00 Urine Color Yellow 07/01/17 23:00 Urine Appearance Clear 07/01/17 23:00 Urine pH 6.0 (5.0-8.0) 07/01/17 23:00 Ur Specific [place] 1.025 (1.001-1.035) 07/01/17 23:00 Urine Protein Negative (NEGATIVE) 07/01/17 23:00 Urine Glucose (UA) Negative (NEGATIVE) 07/01/17 23:00 Urine Ketones Negative (NEGATIVE) 07/01/17 23:00 Urine Blood Negative (NEGATIVE) 07/01/17 23:00 Urine Nitrite Negative (NEGATIVE) 07/01/17 23:00 Urine Bilirubin Negative (<2.0 mg/dL) 07/01/17 23:00 Urine Urobilinogen Normal mg/dL (0.2-1.0) 07/01/17 23:00 Ur Leukocyte Esterase Negative (NEGATIVE) 07/01/17 23:00 RPR Titer Nonreactive (NONREACTIVE) 07/02/17 07:00 HIV 1&2 Antibody Screen Negative 07/02/17 09:00 HIV P24 Antigen Negative 07/02/17 09:00 Assessment: 07/03/17 14:58 WITHDRAWAL SYMPTOM Plan: CONTINUE DETOX
[2017-07-03] MEDS: chlordiazePOXIDE 5 MG CAPSULE PO SCH ×2 (17:47→22:21)
[2017-07-03] MEDS: QUEtiapine FUMARATE 100 MG TABLET (FP) PO SCH (22:20)
[2017-07-03] MEDS: MELATONIN 5 MG TABLETS PO PRN (22:22)
[2017-07-03] MEDS: THIAMINE HCL 100 MG TABLET (FP) PO SCH (22:22)
[2017-07-04] MEDS: chlordiazePOXIDE HCL 25 MG CAPSULE PO PRN ×2 (00:48→08:52)
[2017-07-04] MEDS: ACETAMINOPHEN 325 MG TABLET (FP) PO PRN ×2 (00:48→22:25)
[2017-07-04] MEDS ORDERED: hydrOXYzine PAMOATE 50 MG CAPSULE (FP) PO ONE (03:22)
[2017-07-04] MEDS: chlordiazePOXIDE 5 MG CAPSULE PO SCH ×2 (04:54→10:31)
[2017-07-04] MEDS: METHADONE HCL 5 MG TABLET (FOR DETOX USE ONLY) PO SCH (10:30)
[2017-07-04] MEDS: SULFAMETHOXAZOLE/TRIMETHOPRIM 800MG/160MG D.S. TABLET PO SCH ×2 (10:30→22:20)
[2017-07-04] MEDS: NICOTINE 14 MG/24 HOURS TOPICAL PATCH TD SCH (10:31)
[2017-07-04] MEDS: PRENATAL VITAMINS W/ FOLIC ACID TABLET (FP) PO SCH (10:31)
[2017-07-04] MEDS: BACITRACIN 15 GM TUBE TOPICAL OINTMENT TP SCH ×2 (10:35→22:21)
[2017-07-04] MEDS: NICOTINE POLACRILEX 2 MG GUM BUC PRN (11:39)
--- NOTE | 2017-07-04 16:08 | PN ---
[facility] Progress Note (SOAP) Subjective: Chills, sweating, interrupted sleep, back pain; patient requesting to see psychiatrist stating he takes seroquel 100mg and trazodone 150mg at home and is only getting seroquel 50mg which is not working. Objective: 07/04/17 16:07 Last Vital Signs Temp Pulse Resp BP Pulse Ox 97.5 F L 18 L 76 H 130/55 07/04/17 14:00 07/04/17 14:00 07/04/17 14:00 07/04/17 14:00 Laboratory Tests 07/01/17 07/02/17 07/02/17 23:00 07:00 07:00 WBC 5.7 RBC 4.18 Hgb 12.6 Hct 37.1 MCV 88.9 MCH 30.1 MCHC 33.8 RDW 13.0 Plt Count 114 L D MPV 10.7 Sodium 141 Potassium 3.7 Chloride 105 Carbon Dioxide 28 Anion Gap 8 BUN 12 D Creatinine 0.7 D Creat Clearance w eGFR > 60 Random Glucose 77 D Calcium 8.7 Total Bilirubin 0.2 D AST 13 L ALT 11 L D Alkaline Phosphatase 84 Total Protein 6.5 Albumin 3.3 L Urine Color Yellow Urine Appearance Clear Urine pH 6.0 Ur Specific [place] 1.025 Urine Protein Negative Urine Glucose (UA) Negative Urine Ketones Negative Urine Blood Negative Urine Nitrite Negative Urine Bilirubin Negative Urine Urobilinogen Normal Ur Leukocyte Esterase Negative RPR Titer HIV 1&2 Antibody Screen HIV P24 Antigen 07/02/17 07/02/17 07:00 09:00 WBC RBC Hgb Hct MCV MCH MCHC RDW Plt Count MPV Sodium Potassium Chloride Carbon Dioxide Anion Gap BUN Creatinine Creat Clearance w eGFR Random Glucose Calcium Total Bilirubin AST ALT Alkaline Phosphatase Total Protein Albumin Urine Color Urine Appearance Urine pH Ur Specific [place] Urine Protein Urine Glucose (UA) Urine Ketones Urine Blood Urine Nitrite Urine Bilirubin Urine Urobilinogen Ur Leukocyte Esterase RPR Titer Nonreactive HIV 1&2 Antibody Screen Negative HIV P24 Antigen Negative Labs reviewed Assessment: 07/04/17 16:07 Withdrawal symptoms Plan: Continue detox Encouraged PO hydration Psychiatry consult ordered re: medication revisit as per patient's request
[2017-07-04] MEDS: chlordiazePOXIDE HCL 10 MG CAPSULE PO SCH ×2 (17:23→22:20)
[2017-07-04] MEDS: IBUPROFEN 400 MG TABLET (FP) PO PRN (17:25)
[2017-07-04] MEDS: QUEtiapine FUMARATE 100 MG TABLET (FP) PO SCH (22:21)
[2017-07-04] MEDS: THIAMINE HCL 100 MG TABLET (FP) PO SCH (22:21)
[2017-07-04] MEDS: MELATONIN 5 MG TABLETS PO PRN (22:22)
[2017-07-05] MEDS: QUEtiapine FUMARATE 100 MG TABLET (FP) PO SCH (00:08)
[2017-07-05] MEDS ORDERED: hydrOXYzine PAMOATE 50 MG CAPSULE (FP) PO PRN (01:20)
[2017-07-05] MEDS: NICOTINE POLACRILEX 2 MG GUM BUC PRN ×2 (02:29→10:22)
[2017-07-05] MEDS: chlordiazePOXIDE HCL 10 MG CAPSULE PO SCH ×2 (05:49→10:20)
[2017-07-05] MEDS: CYCLOBENZAPRINE HCL 10 MG TABLET (FP) PO PRN ×3 (05:51→19:39)
[2017-07-05] MEDS: IBUPROFEN 400 MG TABLET (FP) PO PRN ×2 (05:52→19:38)
[2017-07-05] MEDS ORDERED: ZOLPIDEM TARTRATE 5 MG TABLET PO PRN (07:51)
[2017-07-05] MEDS ORDERED: ZOLPIDEM TARTRATE 10 MG TABLET (PARK CARE ONLY) PO PRN (09:53)
--- NOTE | 2017-07-05 09:57 | PN ---
Psychiatric Progress Note Vital Signs: Vital Signs Period Temp Pulse Resp BP Sys/Max Pulse Ox Last 24 Hr 97.2 F-98.1 F - 112-130/55-71 Date of Session: 07/05/17 Chief Complaint:: Insomnia, anxiety HPI: Patient reports onsomknia, reports anxiety and agitation, asking for recreational aide. Reports goiod response on Ambien prior top admission Current Medications: Active Medications Generic Name Dose Route Start Last Admin Trade Name Freq PRN Reason Stop Dose Admin Acetaminophen 650 mg 07/01/17 16:24 07/04/17 22:25 Tylenol - PO 650 mg Q4H PRN Administration FEVER Al Hydroxide/Mg Hydroxide 30 ml 07/01/17 16:24 Mylanta Oral Suspension - PO Q6H PRN DYSPEPSIA Bacitracin 1 applic 07/01/17 22:00 07/04/17 22:21 Bacitracin - TP 1 applic BID KYLE Administration Chlordiazepoxide HCl 10 mg 07/04/17 17:00 07/05/17 05:49 Librium - PO 07/05/17 11:01 10 mg [id number] KYLE Administration Cyclobenzaprine HCl 10 mg 07/04/17 11:16 07/05/17 05:51 Flexeril - PO 10 mg TID PRN Administration MUSCLE SPASMS Eucalyptus/Menthol/Phenol/Sorbitol 1 each 07/01/17 16:24 Cepastat Lozenge - MM Q4H PRN SORE THROAT Guaifenesin 10 ml 07/01/17 16:24 Robitussin Dm - PO Q6H PRN COUGH Hydroxyzine Pamoate 50 mg 07/05/17 01:20 07/05/17 01:59 Vistaril - PO 50 mg Q6H PRN Administration FOR ITCHING Ibuprofen 400 mg 07/01/17 16:24 07/05/17 05:52 Motrin - PO 400 mg Q6H PRN Administration PAIN LEVEL 4-6 Loperamide HCl 4 mg 07/01/17 16:24 Imodium - PO Q6H PRN DIARRHEA Magnesium Citrate 300 ml 07/01/17 16:24 Citroma - PO Q48H PRN CONSTIPATION Magnesium Hydroxide 30 ml 07/01/17 16:24 Milk Of Magnesia - PO DAILY PRN CONSTIPATION Melatonin 5 mg 07/01/17 22:00 07/04/17 22:22 Melatonin PO 5 mg HS PRN Administration INSOMNIA Methadone HCl 5 mg 07/06/17 06:00 Dolophine - PO 07/06/17 06:01 DAILY@0600 KYLE Methadone HCl 10 mg 07/05/17 10:00 Dolophine - PO 07/05/17 10:01 DAILY KYLE Nicotine 14 mg 07/01/17 16:30 07/04/17 10:31 Nicoderm Patch - TD Not Given DAILY KYLE Nicotine Polacrilex 2 mg 07/01/17 16:24 07/05/17 02:29 Nicorette Gum - BUC 2 mg Q2H PRN Administration NICOTINE REPLACEMENT RX Multivit/Folic Acid/Iron 1 tab 07/02/17 10:00 07/04/17 10:31 Vitamins (Sjr) - PO 1 tab DAILY KYLE Administration Pseudoephedrine/Triprolidine 1 combo 07/01/17 16:24 Actifed - PO TID PRN NASAL CONGESTION Thiamine HCl 100 mg 07/01/17 22:00 07/04/17 22:21 Vitamin B1 - PO 100 mg HS KYLE Administration Trimethoprim/Sulfamethoxazole 1 each 07/01/17 22:00 07/04/17 22:20 Bactrim Ds - PO 07/11/17 21:59 1 each BID KYLE Administration Zolpidem Tartrate 5 mg 07/05/17 07:51 Ambien - PO 07/08/17 07:50 HS PRN INSOMNIA Medication(s) Change(s): Ambien 10mg po qhs. Trazodone 100mg po qhs. d/c Serouqel 100mg po qhs Mental Status Exam - Mental Status Exam Alert and Oriented to: Person Cognitive Function: Fair Patient Appearance: Unkempt Mood: Sad Affect: Flat Patient Behavior: Guarded Speech Pattern: Appropriate Voice Loudness: Mildly Soft/Quiet Thought Process: Circumstantial Thought Disorder: Being Controlled Hallucinations: Denies Suicidal Ideation: Denies Homicidal Ideation: Denies Insight/Judgement: Fair Sleep: Difficulty falling asleep Appetite: Weight loss Muscle strength/Tone: Normal Gait/Station: Shuffling Additional Comments: Ambien 10mg po qhs. Trazodone 100mg po qhs. d/c Serouqel 100mg po qhs Psychiatric Treatment Plan - Problem List (1) Alcohol dependence with uncomplicated withdrawal Current Visit: Yes (2) Drug-induced mood disorder Current Visit: Yes (3) Opioid dependence with withdrawal Current Visit: Yes (4) Sedative/hypnotic withdrawal without complication Current Visit: Yes (5) Bipolar disorder Current Visit: Yes Qualifiers: Active/Remission status: remission status unspecified Qualified Code(s): F31.9 - Bipolar disorder, unspecified Comment: History reported by patient. 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 (12) Opioid dependence on agonist therapy Current Visit: No (13) Bipolar I disorder, most recent episode depressed Current Visit: No Initial treatment plan: Ambien 10mg po qhs. Trazodone 100mg po qhs. d/c Serouqel 100mg po qhs
[2017-07-05] MEDS ORDERED: METHADONE HCL 10 MG TABLET (FOR DETOX USE ONLY) PO SCH (10:00)
[2017-07-05] MEDS: BACITRACIN 15 GM TUBE TOPICAL OINTMENT TP SCH ×2 (10:19→21:49)
[2017-07-05] MEDS: PRENATAL VITAMINS W/ FOLIC ACID TABLET (FP) PO SCH (10:20)
[2017-07-05] MEDS: SULFAMETHOXAZOLE/TRIMETHOPRIM 800MG/160MG D.S. TABLET PO SCH ×2 (10:20→21:51)
[2017-07-05] MEDS: NICOTINE 14 MG/24 HOURS TOPICAL PATCH TD SCH (10:22)
--- NOTE | 2017-07-05 12:52 | PN ---
[facility] Progress Note (SOAP) Subjective: feeling better less sweat no tremor alert oriented x 3 social with peers in day room Objective: 07/05/17 12:51 Vital Signs Temperature 97.7 F 07/05/17 10:17 Pulse Rate 92 H 07/05/17 10:17 Respiratory Rate 18 07/05/17 10:17 Blood Pressure 100/63 07/05/17 10:17 O2 Sat by Pulse Oximetry (%) Laboratory Last Values WBC 5.7 K/mm3 (4.0-10.0) 07/02/17 07:00 RBC 4.18 M/mm3 (4.00-5.60) 07/02/17 07:00 Hgb 12.6 GM/dL (11.7-16.9) 07/02/17 07:00 Hct 37.1 % (35.4-49) 07/02/17 07:00 MCV 88.9 fl (80-96) 07/02/17 07:00 MCH 30.1 pg (25.7-33.7) 07/02/17 07:00 MCHC 33.8 g/dl (32.0-35.9) 07/02/17 07:00 RDW 13.0 % (11.9-15.9) 07/02/17 07:00 Plt Count 114 K/MM3 (134-434) L D 07/02/17 07:00 MPV 10.7 fl (7.5-11.1) 07/02/17 07:00 Sodium 141 mmol/L (136-145) 07/02/17 07:00 Potassium 3.7 mmol/L (3.5-5.1) 07/02/17 07:00 Chloride 105 mmol/L (98-107) 07/02/17 07:00 Carbon Dioxide 28 mmol/L (21-32) 07/02/17 07:00 Anion Gap 8 (8-16) 07/02/17 07:00 BUN 12 mg/dL (7-18) D 07/02/17 07:00 Creatinine 0.7 mg/dL (0.7-1.3) D 07/02/17 07:00 Creat Clearance w eGFR > 60 (>60) 07/02/17 07:00 Random Glucose 77 mg/dL (74-106) D 07/02/17 07:00 Calcium 8.7 mg/dL (8.5-10.1) 07/02/17 07:00 Total Bilirubin 0.2 mg/dL (0.2-1.0) D 07/02/17 07:00 AST 13 U/L (15-37) L 07/02/17 07:00 ALT 11 U/L (12-78) L D 07/02/17 07:00 Alkaline Phosphatase 84 U/L (45-117) 07/02/17 07:00 Total Protein 6.5 g/dl (6.4-8.2) 07/02/17 07:00 Albumin 3.3 g/dl (3.4-5.0) L 07/02/17 07:00 Urine Color Yellow 07/01/17 23:00 Urine Appearance Clear 07/01/17 23:00 Urine pH 6.0 (5.0-8.0) 07/01/17 23:00 Ur Specific [place] 1.025 (1.001-1.035) 07/01/17 23:00 Urine Protein Negative (NEGATIVE) 07/01/17 23:00 Urine Glucose (UA) Negative (NEGATIVE) 07/01/17 23:00 Urine Ketones Negative (NEGATIVE) 07/01/17 23:00 Urine Blood Negative (NEGATIVE) 07/01/17 23:00 Urine Nitrite Negative (NEGATIVE) 07/01/17 23:00 Urine Bilirubin Negative (<2.0 mg/dL) 07/01/17 23:00 Urine Urobilinogen Normal mg/dL (0.2-1.0) 07/01/17 23:00 Ur Leukocyte Esterase Negative (NEGATIVE) 07/01/17 23:00 RPR Titer Nonreactive (NONREACTIVE) 07/02/17 07:00 HIV 1&2 Antibody Screen Negative 07/02/17 09:00 HIV P24 Antigen Negative 07/02/17 09:00 lab noted Assessment: 07/05/17 12:51 mild withdrawal sx Plan: medically supervised detox
[2017-07-05] MEDS: LIDOCAINE 5% TOPICAL PATCH TP SCH (14:07)
[2017-07-05] MEDS: ACETAMINOPHEN 325 MG TABLET (FP) PO PRN (14:08)
[2017-07-05] MEDS: THIAMINE HCL 100 MG TABLET (FP) PO SCH (21:50)
[2017-07-05] MEDS ORDERED: traZODone HCL 100 MG TABLET (FP) PO SCH (22:00)
[2017-07-05] MEDS ORDERED: LIDOCAINE PATCH REMOVAL MC SCH (22:00)
[2017-07-06] MEDS ORDERED: METHADONE HCL 5 MG TABLET (FOR DETOX USE ONLY) PO SCH (06:00)
[2017-07-06] MEDS: IBUPROFEN 400 MG TABLET (FP) PO PRN ×2 (06:17→13:36)
[2017-07-06] MEDS: CYCLOBENZAPRINE HCL 10 MG TABLET (FP) PO PRN ×2 (06:17→13:35)
--- NOTE | 2017-07-06 08:47 | DS ---
[facility] Detox Discharge Summary Admission Date: 07/01/17 Discharge Date: 07/06/17 - History Present History: Alcohol Dependence, Opioid Dependence Additional Comments: 36 years old male admitted 07/01/17 for alcohol and opioid withdrawal sx completed detox regimen tolerated well denies alcohol and opioid withdrawal sx alert oriented x 3 no acute distress wants to go [facility] patient wants to maintain sober through recovery process - Physical Exam Results Vital Signs: Vital Signs Temperature 96.8 F L 07/06/17 06:00 Pulse Rate 55 L 07/06/17 06:00 Respiratory Rate 18 07/06/17 06:00 Blood Pressure 100/54 07/06/17 06:00 O2 Sat by Pulse Oximetry (%) Pertinent Admission Physical Exam Findings: withdrawal sx Vital Signs Temperature 97.3 F L 07/06/17 08:51 Pulse Rate 67 07/06/17 08:51 Respiratory Rate 18 07/06/17 08:51 Blood Pressure 113/68 07/06/17 08:51 O2 Sat by Pulse Oximetry (%) Laboratory Last Values WBC 5.7 K/mm3 (4.0-10.0) 07/02/17 07:00 RBC 4.18 M/mm3 (4.00-5.60) 07/02/17 07:00 Hgb 12.6 GM/dL (11.7-16.9) 07/02/17 07:00 Hct 37.1 % (35.4-49) 07/02/17 07:00 MCV 88.9 fl (80-96) 07/02/17 07:00 MCH 30.1 pg (25.7-33.7) 07/02/17 07:00 MCHC 33.8 g/dl (32.0-35.9) 07/02/17 07:00 RDW 13.0 % (11.9-15.9) 07/02/17 07:00 Plt Count 114 K/MM3 (134-434) L D 07/02/17 07:00 MPV 10.7 fl (7.5-11.1) 07/02/17 07:00 Sodium 141 mmol/L (136-145) 07/02/17 07:00 Potassium 3.7 mmol/L (3.5-5.1) 07/02/17 07:00 Chloride 105 mmol/L (98-107) 07/02/17 07:00 Carbon Dioxide 28 mmol/L (21-32) 07/02/17 07:00 Anion Gap 8 (8-16) 07/02/17 07:00 BUN 12 mg/dL (7-18) D 07/02/17 07:00 Creatinine 0.7 mg/dL (0.7-1.3) D 07/02/17 07:00 Creat Clearance w eGFR > 60 (>60) 07/02/17 07:00 Random Glucose 77 mg/dL (74-106) D 07/02/17 07:00 Calcium 8.7 mg/dL (8.5-10.1) 07/02/17 07:00 Total Bilirubin 0.2 mg/dL (0.2-1.0) D 07/02/17 07:00 AST 13 U/L (15-37) L 07/02/17 07:00 ALT 11 U/L (12-78) L D 07/02/17 07:00 Alkaline Phosphatase 84 U/L (45-117) 07/02/17 07:00 Total Protein 6.5 g/dl (6.4-8.2) 07/02/17 07:00 Albumin 3.3 g/dl (3.4-5.0) L 07/02/17 07:00 Urine Color Yellow 07/01/17 23:00 Urine Appearance Clear 07/01/17 23:00 Urine pH 6.0 (5.0-8.0) 07/01/17 23:00 Ur Specific [place] 1.025 (1.001-1.035) 07/01/17 23:00 Urine Protein Negative (NEGATIVE) 07/01/17 23:00 Urine Glucose (UA) Negative (NEGATIVE) 07/01/17 23:00 Urine Ketones Negative (NEGATIVE) 07/01/17 23:00 Urine Blood Negative (NEGATIVE) 07/01/17 23:00 Urine Nitrite Negative (NEGATIVE) 07/01/17 23:00 Urine Bilirubin Negative (<2.0 mg/dL) 07/01/17 23:00 Urine Urobilinogen Normal mg/dL (0.2-1.0) 07/01/17 23:00 Ur Leukocyte Esterase Negative (NEGATIVE) 07/01/17 23:00 RPR Titer Nonreactive (NONREACTIVE) 07/02/17 07:00 HIV 1&2 Antibody Screen Negative 07/02/17 09:00 HIV P24 Antigen Negative 07/02/17 09:00 lab noted - Treatment Hospital Course: Detox Protocol Followed, Detoxed Safely, Responded well, Discharged Condition Good, Rehab Referral Accepted Patient has Accepted a Rehab Referral to: [facility] as per counselor arranged - Medication Discharge Medications: Ambulatory Orders Citalopram Hydrobromide [Celexa -] 10 mg PO DAILY #30 tablet 03/24/16 Quetiapine Fumarate [Seroquel] 100 mg PO HS #30 tablet 03/24/16 - Diagnosis (1) Alcohol dependence with uncomplicated withdrawal Current Visit: Yes Status: Acute (2) Opioid dependence with withdrawal Current Visit: Yes Status: Acute (3) Sedative/hypnotic withdrawal without complication Current Visit: Yes Status: Acute (4) Hepatitis C Current Visit: Yes Status: Chronic Qualifiers: Viral hepatitis chronicity: chronic Hepatic coma status: without hepatic coma Qualified Code(s): B18.2 - Chronic viral hepatitis C (5) Nicotine dependence Current Visit: Yes Status: Acute Qualifiers: Nicotine product type: cigarettes Substance use status: in withdrawal Qualified Code(s): F17.213 - Nicotine dependence, cigarettes, with withdrawal - AMA Did Patient Leave Against Medical Advice: No
[2017-07-06] MEDS: SULFAMETHOXAZOLE/TRIMETHOPRIM 800MG/160MG D.S. TABLET PO SCH (10:50)
[2017-07-06] MEDS: NICOTINE 14 MG/24 HOURS TOPICAL PATCH TD SCH (10:50)
[2017-07-06] MEDS: NICOTINE POLACRILEX 2 MG GUM BUC PRN (10:50)
[2017-07-06] MEDS: PRENATAL VITAMINS W/ FOLIC ACID TABLET (FP) PO SCH (10:50)
[2017-07-06] MEDS: ACETAMINOPHEN 325 MG TABLET (FP) PO PRN (10:52)
[2017-07-06] MEDS: LIDOCAINE 5% TOPICAL PATCH TP SCH (10:53)
[2017-07-06] MEDS: BACITRACIN 15 GM TUBE TOPICAL OINTMENT TP SCH (11:14)
[2017-07-06 13:52] VITALS: BP 132/68; PULSE 71; TEMP 97.5
== END 2017-07-06 14:10 | disposition other institution (70) | DRG 773 ==
LOC: YASAS 13:21 → Y6N 16:35
PROVIDERS: ADMIT Surgery; ATTEND Surgery
PROC: HZ2ZZZZ Detoxification Services for Substance Abuse Treatment (ICD-10-PCS; principal; 2017-07-01)
DX: F11.23 Opioid dependence with withdrawal (principal); F13.230 Sedative, hypnotic or anxiolytic dependence with withdrawal, uncomplicated; F10.230 Alcohol dependence with withdrawal, uncomplicated; F15.10 Other stimulant abuse, uncomplicated; F17.213 Nicotine dependence, cigarettes, with withdrawal; F19.24 Other psychoactive substance dependence with psychoactive substance-induced mood disorder; F31.9 Bipolar disorder, unspecified; B18.2 Chronic viral hepatitis C; Z85.89 Personal history of malignant neoplasm of other organs and systems; Z98.890 Other specified postprocedural states; Z91.5 Personal history of self-harm
CPT/HCPCS: 36415; 80053; 81003; 85027; 86593; 87389; 93005; 93010

== ENCOUNTER 2017-07-06 14:17 | Inpatient (IN) | payer OTHER ==
--- NOTE | 2017-07-06 13:11 | HP ---
[facility] Rehab Assess/Revision - Admission History Admitted to Rehab from: [facility] [place] Date of Admission to Rehab: 07/06/17 - Findings Detox History & Physical reviewed: Yes Concur with findings: Yes Comments/Additional Findings: transferred from detox to rehab admission as per protocol Inpatient Rehab Admission - Initial Determination Are CD services needed?: Yes Free of communicable disease: Yes Not in need of hospitalization: Yes - Rehab Admission Criteria Previous failed treatment: Yes Poor recovery environment: Yes Comorbidities: Yes Lacks judgement: No Patient is meeting Inpatient Rehab admission criteria:: Yes
[~2017-07-06 14:17] MED LIST: LOPERAMIDE HCL 2 MG CAPSULE PO PRN; MAG HYDROX/AL HYDROX/SIMETH 30 ML UNIT-DOSE CUP PO PRN; MAGNESIUM CITRATE 300 ML BOTTLE PO PRN; MAGNESIUM HYDROX 2400MG/30ML ORAL SUSPENSION 30 ML CUP PO PRN; MENTHOL/PHENOL 1 EACH UD MM PRN; P-EPHED 60MG/TRIPROLIDI 2.5MG TABLET PO PRN; guaiFENesin/D-METHORPHAN HB 10 ML UNIT-DOSE CUPS PO PRN
[2017-07-06] MEDS ORDERED: NICOTINE 14 MG/24 HOURS TOPICAL PATCH TD PRN (14:30)
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
[2017-07-06] MEDS: SUVOREXANT 10 MG TABLET PO SCH (21:26)
[2017-07-06] MEDS: traZODone HCL 50 MG TABLET (FP) PO SCH (21:26)
[2017-07-06] MEDS: SULFAMETHOXAZOLE/TRIMETHOPRIM 800MG/160MG D.S. TABLET PO SCH (21:26)
[2017-07-06] MEDS: GABAPENTIN 100 MG CAPSULE (FP) PO SCH (21:26)
[2017-07-06] MEDS: THIAMINE HCL 100 MG TABLET (FP) PO SCH (21:26)
[2017-07-06] MEDS: NICOTINE POLACRILEX 2 MG GUM BUC PRN (21:27)
[2017-07-06] MEDS ORDERED: MELATONIN 5 MG TABLETS PO PRN (22:00)
[2017-07-07] MEDS: GABAPENTIN 100 MG CAPSULE (FP) PO SCH ×3 (06:40→21:25)
[2017-07-07] MEDS: CITALOPRAM HYDROBROMIDE 10 MG TABLET (FP) PO SCH (10:08)
[2017-07-07] MEDS: SULFAMETHOXAZOLE/TRIMETHOPRIM 800MG/160MG D.S. TABLET PO SCH ×2 (10:08→21:24)
[2017-07-07] MEDS: PRENATAL VITAMINS W/ FOLIC ACID TABLET (FP) PO SCH (10:08)
[2017-07-07] MEDS: IBUPROFEN 400 MG TABLET (FP) PO PRN ×2 (10:10→21:26)
[2017-07-07] MEDS: NICOTINE POLACRILEX 2 MG GUM BUC PRN (10:11)
[2017-07-07] MEDS ORDERED: CYCLOBENZAPRINE HCL 10 MG TABLET (FP) PO PRN (13:24)
[2017-07-07] MEDS: ACETAMINOPHEN 325 MG TABLET (FP) PO PRN (15:03)
[2017-07-07] MEDS: CYCLOBENZAPRINE HCL 5 MG TABLET PO PRN ×2 (15:03→21:24)
[2017-07-07] MEDS: traZODone HCL 50 MG TABLET (FP) PO SCH (21:24)
[2017-07-07] MEDS: SUVOREXANT 10 MG TABLET PO SCH (21:25)
[2017-07-07] MEDS: THIAMINE HCL 100 MG TABLET (FP) PO SCH (21:27)
[2017-07-08] MEDS: GABAPENTIN 100 MG CAPSULE (FP) PO SCH ×3 (06:20→21:27)
[2017-07-08] MEDS: IBUPROFEN 400 MG TABLET (FP) PO PRN ×2 (06:22→17:23)
[2017-07-08] MEDS: CITALOPRAM HYDROBROMIDE 10 MG TABLET (FP) PO SCH (10:20)
[2017-07-08] MEDS: SULFAMETHOXAZOLE/TRIMETHOPRIM 800MG/160MG D.S. TABLET PO SCH ×2 (10:20→21:26)
[2017-07-08] MEDS: PRENATAL VITAMINS W/ FOLIC ACID TABLET (FP) PO SCH (10:20)
[2017-07-08] MEDS: ACETAMINOPHEN 325 MG TABLET (FP) PO PRN ×3 (10:22→21:30)
[2017-07-08] MEDS: CYCLOBENZAPRINE HCL 5 MG TABLET PO PRN ×2 (10:23→17:24)
[2017-07-08] MEDS: NICOTINE POLACRILEX 2 MG GUM BUC PRN (10:24)
--- NOTE | 2017-07-08 12:50 | PN ---
[facility] Progress Note Note: chronic back pain patient was using lidocaine top patch while in detox continue lidocaine qd PRN TP patch
[2017-07-08] MEDS: LIDOCAINE 5% TOPICAL PATCH TP SCH (14:13)
[2017-07-08] MEDS: THIAMINE HCL 100 MG TABLET (FP) PO SCH (21:27)
[2017-07-08] MEDS: SUVOREXANT 10 MG TABLET PO SCH (21:27)
[2017-07-08] MEDS: traZODone HCL 50 MG TABLET (FP) PO SCH ×2 (21:58→23:04)
[2017-07-08] MEDS ORDERED: LIDOCAINE PATCH REMOVAL MC SCH (22:00)
[2017-07-09] MEDS: GABAPENTIN 100 MG CAPSULE (FP) PO SCH ×2 (06:10→14:23)
[2017-07-09] MEDS: CYCLOBENZAPRINE HCL 5 MG TABLET PO PRN ×2 (06:10→14:26)
[2017-07-09] MEDS: IBUPROFEN 400 MG TABLET (FP) PO PRN ×2 (06:10→14:26)
[2017-07-09 07:17] VITALS: BP 124/83; PULSE 88; TEMP 97.9
[2017-07-09] MEDS: PRENATAL VITAMINS W/ FOLIC ACID TABLET (FP) PO SCH (10:33)
[2017-07-09] MEDS: SULFAMETHOXAZOLE/TRIMETHOPRIM 800MG/160MG D.S. TABLET PO SCH (10:33)
[2017-07-09] MEDS: CITALOPRAM HYDROBROMIDE 10 MG TABLET (FP) PO SCH (10:33)
[2017-07-09] MEDS: LIDOCAINE 5% TOPICAL PATCH TP SCH (10:36)
[2017-07-09] MEDS: ACETAMINOPHEN 325 MG TABLET (FP) PO PRN (11:43)
--- NOTE | 2017-07-09 15:19 | PN ---
Psychiatric Progress Note Vital Signs: Vital Signs Period Temp Pulse Resp BP Sys/Max Pulse Ox Last 24 Hr 97.9 F 88 18-18 124/83 Date of Session: 07/09/17 Chief Complaint:: "he wants to leave AMA" HPI: Patient is addressing opioid,alcohol, cocaine, nicotine dependence comorbid Bipolar I disorder, Current Medications: Active Medications Generic Name Dose Route Start Last Admin Trade Name Freq PRN Reason Stop Dose Admin Acetaminophen 650 mg 07/06/17 13:11 07/09/17 11:43 Tylenol - PO 650 mg Q4H PRN Administration FEVER Al Hydroxide/Mg Hydroxide 30 ml 07/06/17 13:11 Mylanta Oral Suspension - PO Q6H PRN DYSPEPSIA Amitriptyline HCl 25 mg 07/09/17 22:00 Elavil - PO HS KYLE Citalopram Hydrobromide 10 mg 07/07/17 10:00 07/09/17 10:33 Celexa - PO 10 mg DAILY KYLE Administration Cyclobenzaprine HCl 5 mg 07/07/17 13:39 07/09/17 14:26 Cyclobenzaprine Hcl PO 5 mg TID PRN Administration BACK PAIN Eucalyptus/Menthol/Phenol/Sorbitol 1 each 07/06/17 13:11 Cepastat Lozenge - MM Q4H PRN SORE THROAT Gabapentin 300 mg 07/09/17 15:13 Neurontin - PO TID KYLE Guaifenesin 10 ml 07/06/17 13:11 Robitussin Dm - PO Q6H PRN COUGH Ibuprofen 400 mg 07/06/17 13:11 07/09/17 14:26 Motrin - PO 400 mg Q6H PRN Administration Pain Level 4-6 Lidocaine 1 patch 07/08/17 13:00 07/09/17 10:36 Lidoderm Patch - TP 1 patch DAILY KYLE Administration Loperamide HCl 4 mg 07/06/17 13:11 Imodium - PO Q6H PRN DIARRHEA Magnesium Citrate 300 ml 07/06/17 13:11 Citroma - PO Q48H PRN CONSTIPATION Magnesium Hydroxide 30 ml 07/06/17 13:11 Milk Of Magnesia - PO DAILY PRN CONSTIPATION Miscellaneous 1 each 07/08/17 22:00 07/08/17 21:27 Lidoderm Patch Removal MC Not Given DAILY@2200 KYLE Nicotine 14 mg 07/06/17 14:30 Nicoderm Patch - TD DAILY PRN WITHDRAWAL(CONT SUBST) Nicotine Polacrilex 2 mg 07/06/17 13:11 07/08/17 10:24 Nicorette Gum - BUC 2 mg Q2H PRN Administration NICOTINE REPLACEMENT RX Multivit/Folic Acid/Iron 1 tab 07/07/17 10:00 07/09/17 10:33 Vitamins (Sjr) - PO 1 tab DAILY KYLE Administration Pseudoephedrine/Triprolidine 1 combo 07/06/17 13:11 Actifed - PO TID PRN NASAL CONGESTION Suvorexant 10 mg 07/06/17 22:00 07/08/17 21:27 Belsomra PO 10 mg HS KYLE Administration Thiamine HCl 100 mg 07/06/17 22:00 07/08/17 21:27 Vitamin B1 - PO 100 mg HS KYLE Administration Trazodone HCl 100 mg 07/06/17 22:00 07/08/17 23:04 Desyrel - PO 100 mg HS KYLE Administration Trimethoprim/Sulfamethoxazole 1 each 07/06/17 22:00 07/09/17 10:33 Bactrim Ds - PO 07/11/17 21:59 1 each BID KYLE Administration Current Side Effect: No Lab tests ordered: No Lab tests reviewed: Yes Provider note:: Patient reported to the staff that he is leaving [facility], met with the patiet to explore reasons for leaving , he reports he does not feel well, can't sleep, irritable , body aches, states "I am always in pain even when I use drugs". Patient was encouraged to stay and focus on his recoverey, recommended to increase Gabapentin 300 mg po tid and add Elavil 25 mg po hs, discussed indications and properties of medications, patient agree to stay, supportive therapy provided. Total face to face time:: 35 Mental Status Exam - Mental Status Exam Alert and Oriented to: Time, Place, Person Cognitive Function: Good Patient Appearance: Well Groomed Mood: Sad, Anxious Affect: Mood Congruent Patient Behavior: Appropriate, Cooperative Speech Pattern: Clear, Appropriate Voice Loudness: Normal Thought Process: Goal Oriented Thought Disorder: Not Present Hallucinations: Denies Suicidal Ideation: Denies Homicidal Ideation: Denies Insight/Judgement: Fair Sleep: Difficulty falling asleep Appetite: Fair Muscle strength/Tone: Normal Gait/Station: Normal Psychiatric Treatment Plan - Problem List (1) Alcohol dependence Current Visit: No Qualifiers: Substance use status: uncomplicated Qualified Code(s): F10.20 - Alcohol dependence, uncomplicated (2) Cocaine dependence Current Visit: No Qualifiers: Substance use status: uncomplicated Qualified Code(s): F14.20 - Cocaine dependence, uncomplicated (3) Insomnia Current Visit: No (4) Nicotine dependence Current Visit: No Qualifiers: Nicotine product type: cigarettes Substance use status: in withdrawal Qualified Code(s): F17.213 - Nicotine dependence, cigarettes, with withdrawal (5) Bipolar I disorder, most recent episode depressed Current Visit: No (6) Opioid dependence Current Visit: No
--- NOTE | 2017-07-09 16:14 | PN ---
S Progress Note Note: Patient c/o goose bumps, headache and body aches. Vital Signs Temperature 97.9 F 07/09/17 07:15 Pulse Rate 88 07/09/17 07:15 Respiratory Rate 18 07/09/17 07:15 Blood Pressure 124/83 07/09/17 07:15 O2 Sat by Pulse Oximetry (%) Obj: General: alert and oriented x 3. In no acute distress. Anxious. + chills. Skin: warm and dry. + goose bumps. MS: +back pain, body aches. Ext without edema. Full ROM. A/P: Withdrawal syndrome Discussed with Dr. Blake and agree to start Suboxone 2mg today and daily for symptom management D/C motrin and start naproxen 500mg BID increase oral fluids continue to monitor clinically
[2017-07-09] MEDS ORDERED: GABAPENTIN 100 MG CAPSULE (FP) PO SCH (16:45)
[2017-07-09] MEDS ORDERED: BUPRENORPHINE/NALOXONE 2 MG/0.5 MG FILM PACKET SL ONE (16:45)
--- NOTE | 2017-07-09 19:27 | PN ---
S Progress Note Note: Patient insists on leaving AMA. Potential for relapse and overdose risks were discussed.
--- NOTE | 2017-07-09 19:37 | DS ---
[facility] Detox Discharge Summary Admission Date: 07/06/17 - Physical Exam Results Vital Signs: Vital Signs Temperature 97.9 F 07/09/17 07:15 Pulse Rate 88 07/09/17 07:15 Respiratory Rate 18 07/09/17 07:15 Blood Pressure 124/83 07/09/17 07:15 O2 Sat by Pulse Oximetry (%) - Treatment Hospital Course: Discharged Condition Good - Medication Discharge Medications: Ambulatory Orders Citalopram Hydrobromide [Celexa -] 10 mg PO DAILY #30 tablet 03/24/16 Quetiapine Fumarate [Seroquel] 100 mg PO HS #30 tablet 03/24/16 - Diagnosis (1) Alcohol dependence Current Visit: Yes Status: Chronic Qualifiers: Substance use status: uncomplicated Qualified Code(s): F10.20 - Alcohol dependence, uncomplicated (2) Cocaine dependence Current Visit: Yes Status: Chronic Qualifiers: Substance use status: uncomplicated Qualified Code(s): F14.20 - Cocaine dependence, uncomplicated (3) Insomnia Current Visit: Yes Status: Chronic (4) Nicotine dependence Current Visit: Yes Status: Chronic Qualifiers: Nicotine product type: cigarettes Substance use status: in withdrawal Qualified Code(s): F17.213 - Nicotine dependence, cigarettes, with withdrawal (5) Opioid dependence Current Visit: Yes Status: Chronic Qualifiers: Substance use status: uncomplicated Qualified Code(s): F11.20 - Opioid dependence, uncomplicated (6) Sedative dependence Status: Chronic (7) Bipolar disorder Current Visit: Yes Status: Chronic Qualifiers: Active/Remission status: remission status unspecified Qualified Code(s): F31.9 - Bipolar disorder, unspecified (8) Methadone maintenance therapy patient Current Visit: Yes Status: Chronic - AMA Did Patient Leave Against Medical Advice: Yes (Aware of potential risks for relapse and overdose. )
[2017-07-09] MEDS ORDERED: AMITRIPTYLINE HCL 25 MG TABLET (FP) PO SCH (22:00)
[2017-07-09] MEDS ORDERED: NAPROXEN 500 MG TABLET (FP) PO SCH (22:00)
[2017-07-09] MEDS ORDERED: CYCLOBENZAPRINE HCL 5 MG TABLET PO SCH (22:00)
[2017-07-10] MEDS ORDERED: BUPRENORPHINE/NALOXONE 2 MG/0.5 MG FILM PACKET SL SCH (10:00)
== END 2017-07-09 18:40 | disposition left against medical advice (07) | DRG 770 ==
LOC: YASAS 14:17 → Y5N 14:18
PROVIDERS: ADMIT Psychiatry & Neurology Psychiatry; ATTEND Psychiatry & Neurology Psychiatry
PROC: HZ42ZZZ Group Counseling for Substance Abuse Treatment, Cognitive-Behavioral (ICD-10-PCS; principal; 2017-07-06)
DX: F11.23 Opioid dependence with withdrawal (principal); F13.230 Sedative, hypnotic or anxiolytic dependence with withdrawal, uncomplicated; F10.230 Alcohol dependence with withdrawal, uncomplicated; F14.20 Cocaine dependence, uncomplicated; F17.210 Nicotine dependence, cigarettes, uncomplicated; F31.31 Bipolar disorder, current episode depressed, mild; G47.00 Insomnia, unspecified

== ENCOUNTER 2018-07-04 16:57 | Inpatient (IN) | payer OTHER | END 2018-07-06 13:20 | disposition left against medical advice (07) | LOC: YASAS 16:57 → Y3N 07-05 14:26 ==

== ENCOUNTER 2018-09-12 18:20 | Inpatient (IN) | payer OTHER ==
[2018-09-12 21:39] VITALS: BMI 21.9
--- NOTE | 2018-09-12 23:48 | HP ---
COWS - Scale Resting Pulse: 0= [place] 80 or Below Sweatin=Flushed/Facial Moisture Restless Observation: 1= Difficult to Sit Still Pupil Size: 0= Normal to Room Light Bone or Joint Aches: 4=Acute Joint/Muscle Pain Runny Nose/ Eye Tearin= Nasal Congestion GI Upset > 30mins: 1= Stomach Cramp Tremor Observation: 2= Slight Tremor Visible Yawning Observation: 0= None Anxiety or Irritability: 2=Irritable/Anxious Goose Flesh Skin: 0=Smooth Skin COWS Score: 13 CIWA Score Nausea/Vomitin-No Nausea/No Vomiting Muscle Tremors: 3 Anxiety: 4-Mod. Anxious/Guarded Agitation: 4-Moderately Restless Paroxysmal Sweats: 3 Orientation: 0-Oriented Tacttile Disturbances: 0-None Auditory Disturbances: 2-Mild Harshness/Frighten Visual Disturbances: 2-Mild Sensitivity Headache: 3-Moderate CIWA-Ar Total Score: 21 - Admission Criteria [facility]ASAS Guidelines: Admission for Medically Managed Detox: Requires at least one of the followin. CIWA greater than 12 2. Seizures within the past 24 hours 3. Delirium tremens within the past 24 hours 4. Hallucinations within the past 24 hours 5. Acute intervention needed for co occurring medical disorder 6. Acute intervention needed for co occurring psychiatric disorder 7. Severe withdrawal that cannot be handled at a lower level of care (continued vomiting, continued diarrhea, abnormal vital signs) requiring intravenous medication and/or fluids 8. Patient presents the following: CIWA greater than 12 Admission Criteria Met: Admission criteria met Admission ROS [facility] Chief Complaint: c/o withdrawak sx's Allergies/Adverse Reactions: Allergies Allergy/AdvReac Type Severity Reaction Status Date / Time No Known Allergies Allergy Verified 09/12/18 21:26 History of Present Illness: 37 y.o. male with hx/o polysusbtance abuse here for alcohol and heroin detox. daniela presents with c/o withdrawal sx's. +iwa/cows. he is self referred known to the program. last here 06/2018. reports relapsing soon after dc. reports longest clean time 2 years relapsing 2013. denies hx/o sz and drug overdose. reports daily use of heroin and alcohol. ivdu. homeless, unemployed, denies legals pmhx- hep c w/ txment psych- bipolar Exam Limitations: No Limitations - Ebola screening Have you traveled outside of the country in the last 21 days: No (N) Have you had contact with anyone from an Ebola affected area: No Do you have a fever: No - Review of Systems Constitutional: Chills, Loss of Appetite, Malaise, Night Sweats, Changes in sleep EENT: reports: Dental Problems (pdental), Odynophagia (ain) Respiratory: reports: No Symptoms reported Cardiac: reports: No Symptoms Reported GI: reports: Poor Appetite, Poor Fluid Intake, Abdominal cramping : reports: No Symptoms Reported Musculoskeletal: reports: Back Pain Integumentary: reports: Flushing, Sweating Neuro: reports: Headache (migraines), Tremors Endocrine: reports: No Symptoms Reported Hematology: reports: No Symptoms Reported Psychiatric: reports: Orientated x3, Agitated, Depressed (sdenies) Other Systems: Reviewed and Negative Patient History - Patient Medical History Hx Anemia: No Hx Asthma: No Hx Chronic Obstructive Pulmonary Disease (COPD): No Hx Cancer: Yes (Peritioneal Mesothelioma, Dx'd 2012, Treated with Chemo, Radiation.) Hx Cardiac Disorders: No Hx Congestive Heart Failure: No Hx Hypertension: No Hx Hypercholesterolemia: No Hx Pacemaker: No HX Cerebrovascular Accident: No Hx Seizures: No Hx Dementia: No Hx Diabetes: No Hx Gastrointestinal Disorders: No Hx Liver Disease: No Hx Genitourinary Disorders: No Hx Sexually Transmitted Disorders: No Hx Renal Disease (ESRD): No Hx Thyroid Disease: No Hx Human Immunodeficiency Virus (HIV): No (negative; Last Tested: 2016.) Hx Hepatitis C: Yes (treated; Completed, Early 2018.) Hx Depression: Yes (Meds. in past, None currently.) Hx Suicide Attempt: Yes (X3, LAST EPISODE IN 2013 BY CUTTING THE WRIST, PREVIOUS 2 BY OVERDOSE DRUG) Hx Bipolar Disorder: Yes (No meds.) Hx Schizophrenia: No - Patient Surgical History Past Surgical History: Yes Hx Neurologic Surgery: No Hx Cataract Extraction: No Hx Cardiac Surgery: No Hx Lung Surgery: No Hx Breast Surgery: No Hx Breast Biopsy: No Hx Abdominal Surgery: Yes (Peritoneal mesothelioma, tumor removal from abdomen, 2012) Hx Appendectomy: No Hx Cholecystectomy: No Hx Genitourinary Surgery: No Hx Section: No Hx Orthopedic Surgery: No Other Surgical History: DENIES. Anesthesia Reaction: No - PPD History Previous Implant?: Yes Documented Results: Negative w/proof Implanted On Prior R Admission?: No Date: 07/08/18 Results: 0 mm PPD to be Administered?: No - Smoking Cessation Smoking history: Current every day smoker Have you smoked in the past 12 months: Yes Aproximately how many cigarettes per day: 10 Cigars Per Day: 0 Hx Chewing Tobacco Use: No Initiated information on smoking cessation: Yes 'Breaking Loose' booklet given: 09/12/18 - Substance & Tx. History Hx Alcohol Use: Yes Hx Substance Use: Yes Substance Use Type: Alcohol, Cocaine, Heroin Hx Substance Use Treatment: Yes ([facility]) - Substances abused Heroin Substance route: Injection Amount used: 3 BUNDLES Age of first use: 15 Date of last use: 09/11/18 Alprazolam (Xanax) Substance route: Oral Frequency: Daily Amount used: 12MG Age of first use: 15 Date of last use: 09/11/18 Cocaine Substance route: Injection Frequency: Daily Amount used: $60 Age of first use: 15 Date of last use: 09/11/18 Alcohol Substance route: Oral Frequency: Daily Amount used: 2 PINTS of Vodka/day Age of first use: 10 Date of last use: 09/12/18 Benzodiazepine (Klonopin) Substance route: Oral Frequency: Daily Amount used: 5MG Age of first use: 15 Date of last use: 09/12/18 Family Disease History - Family Disease History Family Disease History: Other: Father (no contact), Mother (RECOVERING COCAINE ADDICT) Admission Physical Exam [facility] - Vital Signs Vital Signs: Vital Signs - 24 hr 09/12/18 09/12/18 21:34 22:07 Temperature 97.8 F 97.8 F Pulse Rate 62 62 Respiratory 16 16 Rate Blood Pressure 109/69 109/69 - Physical General Appearance: Yes: Mild Distress, Tremorous, Sweating, Anxious HEENTM: Yes: EOMI, Normocephalic, Normal Voice, AMI, Pharynx Normal Respiratory: Yes: Chest Non-Tender, Lungs Clear, Normal Breath Sounds, No Respiratory Distress, No Accessory Muscle Use Neck: Yes: No masses,lesions,Nodules, Supple, Trachea in good position Breast: Yes: Breast Exam Deferred Cardiology: Yes: Regular Rhythm, Regular Rate, S1, S2 Abdominal: Yes: Normal Bowel Sounds, Non Tender, Flat, Soft Genitourinary: Yes: Within Normal Limits Back: Yes: Normal Inspection Musculoskeletal: Yes: full range of Motion, Gait Steady Extremities: Yes: Normal Capillary Refill, Normal Range of Motion, Non-Tender, Tremors Neurological: Yes: Fully Oriented, Alert, Motor Strength 5/5, Depressed Affect Integumentary: Yes: Warm, Moist, Track Christie Lymphatic: Yes: Within Normal Limits - Diagnostic (1) Alcohol dependence with uncomplicated withdrawal Current Visit: Yes Status: Acute (2) At risk for dehydration due to poor fluid intake Current Visit: Yes Status: Acute (3) Drug-induced mood disorder Current Visit: Yes Status: Acute (4) Opioid dependence with withdrawal Current Visit: Yes Status: Acute 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 Current Visit: Yes Status: Acute (6) Alcohol dependence Current Visit: Yes Status: Acute Qualifiers: Substance use status: uncomplicated Qualified Code(s): F10.20 - Alcohol dependence, uncomplicated (7) Cocaine dependence Current Visit: Yes Status: Acute Qualifiers: Substance use status: uncomplicated Qualified Code(s): F14.20 - Cocaine dependence, uncomplicated (8) Nicotine dependence Current Visit: Yes Status: Chronic Qualifiers: Nicotine product type: cigarettes Substance use status: in withdrawal Qualified Code(s): F17.213 - Nicotine dependence, cigarettes, with withdrawal (9) IVDU (intravenous drug user) Current Visit: Yes Status: Acute Cleared for Admission S - Detox or Rehab [facility] Level of Care: Medically Managed Detox Regimen/Protocol: Methadone/Librium Claeared for Rehab Admission: No Breathalyzer - Breathalyzer Breathalyzer: 0 Urine Drug Screen - Test Device Lot number: [id number] Expiration date: 06/21/20 - Control Is test valid?: Yes - Results Drug screen NEGATIVE: No Urine drug screen results: ROSALIE-Cocaine, MET-Methamphetamine, FEN-Fentanyl, MOP- Opiates, OXY-Oxycodone, MDMA-Ecstasy Inpatient Rehab Admission - Rehab Decision to Admit Inpatient rehab admission?: No
[2018-09-13] MEDS ORDERED: MAGNESIUM CITRATE 300 ML BOTTLE PO PRN (00:01)
[2018-09-13] MEDS ORDERED: MAGNESIUM HYDROX 2400MG/30ML ORAL SUSPENSION 30 ML CUP PO PRN (00:01)
[2018-09-13] MEDS ORDERED: guaiFENesin 200 MG/10 ML 10 ML UNIT-DOSE CUPS PO PRN (00:01)
[2018-09-13] MEDS ORDERED: cloNIDine HCL 0.1 MG TABLET PO PRN (00:01)
[2018-09-13] MEDS ORDERED: DICYCLOMINE HCL 10 MG CAPSULE PO PRN (00:01)
[2018-09-13] MEDS ORDERED: ACETAMINOPHEN 325 MG TABLET (FP) PO PRN ×2 (00:01)
[2018-09-13] MEDS ORDERED: MAG HYDROX/AL HYDROX/SIMETH 30 ML UNIT-DOSE CUP PO PRN (00:01)
[2018-09-13] MEDS ORDERED: MELATONIN 5 MG TABLETS PO PRN (00:01)
[2018-09-13] MEDS ORDERED: NALOXONE HCL 0.4 MG/ML VIAL IM PRN (00:01)
[2018-09-13] MEDS ORDERED: IBUPROFEN 400 MG TABLET (FP) PO PRN (00:01)
[2018-09-13] MEDS ORDERED: ONDANSETRON *ODT* 4 MG TABLET SL PRN (00:01)
[2018-09-13] MEDS ORDERED: NICOTINE POLACRILEX 2 MG GUM BUC PRN (00:01)
[2018-09-13] MEDS ORDERED: P-EPHED 60MG/TRIPROLIDI 2.5MG TABLET PO PRN (00:01)
[2018-09-13] MEDS ORDERED: METHADONE HCL 10 MG TABLET (FOR DETOX USE ONLY) PO ONE (00:01)
[2018-09-13] MEDS ORDERED: MENTHOL/PHENOL 1 EACH UD MM PRN (00:01)
[2018-09-13] MEDS ORDERED: BISMUTH SUBSALICYLATE 524 MG/30 ML UD PO PRN (00:01)
[2018-09-13] MEDS: hydrOXYzine HCL 25 MG TABLET (FP) PO PRN (00:58)
[2018-09-13] MEDS: chlordiazePOXIDE HCL 25 MG CAPSULE PO PRN (00:58)
[2018-09-13] MEDS: chlordiazePOXIDE HCL 25 MG CAPSULE PO SCH ×4 (05:10→22:27)
[2018-09-13] MEDS: PRENATAL VITAMINS W/ FOLIC ACID TABLET (FP) PO SCH (10:23)
[2018-09-13] MEDS: NICOTINE 14 MG/24 HOURS TOPICAL PATCH TD SCH (10:23)
[2018-09-13] MEDS: METHOCARBAMOL 500 MG TABLET PO PRN ×2 (10:27→18:05)
--- NOTE | 2018-09-13 11:06 | PN ---
[facility] CIWA - CIWA Score Nausea/Vomitin-Mild Nausea/No Vomiting Muscle Tremors: 4-Moderate,w/Arms Extend Anxiety: 4-Mod. Anxious/Guarded Agitation: 4-Moderately Restless Paroxysmal Sweats: 1-Minimal Palms Moist Orientation: 0-Oriented Tacttile Disturbances: 1-Very Mild Itch/Numbness Auditory Disturbances: 0-None Visual Disturbances: 0-None Headache: 1-Very Mild CIWA-Ar Total Score: 16 S COWS - Scale Resting Pulse: 0= [place] 80 or Below Sweatin= Chills/Flushing Restless Observation: 0= Sits Still Pupil Size: 0= Normal to Room Light Bone or Joint Aches: 2= Severe Diffuse Aches Runny Nose/ Eye Tearin= Nasal Congestion GI Upset > 30mins: 2= Nausea/Diarrhea Tremor Observation of Outstretched Hands: 2= Slight Tremor Visible Yawning Observation: 2= >3x During Session Anxiety or Irritability: 2=Irritable/Anxious Goose Flesh Skin: 0=Smooth Skin COWS Score: 12 S Progress Note (SOAP) Subjective: 37 years old male admitted on 09/12/18 for acute alcohol benzo and opiate withdrawal sx management feeling better today that no complication at this time ambulate on hallway [facility] medication assisted treatment program Objective: 09/13/18 11:05 Vital Signs Temperature 98.3 F 09/13/18 09:30 Pulse Rate 52 L 09/13/18 09:30 Respiratory Rate 16 09/13/18 09:30 Blood Pressure 103/61 09/13/18 09:30 O2 Sat by Pulse Oximetry (%) 09/13/18 11:06 admission lab ordered for 09/14/18 09/13/18 11:06 06/2018 lab results reviewed Assessment: 09/13/18 11:07 alcohol benzo and opiate withdrawal sx Plan: continue alcohol benzo and opiate detox
[2018-09-13 16:24] LABS: PH,URINE 7.5 (5.0-8.0); URINE APPEARANCE CLOUDY; URINE BILIRUBIN NEGATIVE (NEGATIVE); URINE COLOR YELLOW; URINE GLUCOSE (UA) NEGATIVE (NEGATIVE); URINE KETONE NEGATIVE (NEGATIVE); URINE LEUK ESTERASE NEGATIVE (NEGATIVE); URINE NITRITE NEGATIVE (NEGATIVE); URINE PROTEIN NEGATIVE (NEGATIVE)
--- NOTE | 2018-09-13 18:32 | CONSULT ---
[facility] Psychiatric Consult - Data Date of interview: 09/13/18 Admission source: [facility] Identifying data: Another admission to [facility] for this 37 y/o male self-referred for detoxification treatment (alcohol, cocaine, heroin, xanax). Interviewed at [address] [place] [address]. Patient is single without children, homeless, unemployed and supported on SSI benefits. Substance Abuse History: Discussed with the patient in tis interview. Details in current [facility] report as follows : Smoking history: Current every day smoker. Have you smoked in the past 12 months: Yes. Aproximately how many cigarettes per day: 10. Cigars Per Day: 0. Hx Chewing Tobacco Use: No. Initiated information on smoking cessation: Yes. 'Breaking Loose' booklet given: . - Substance & Tx. History. Hx Alcohol Use: Yes. Hx Substance Use: Yes. Substance Use Type: Alcohol, Cocaine, Heroin. Hx Substance Use Treatment: Yes ( [facility]). - Substances abused. Heroin. Substance route: Injection. Amount used: 3 BUNDLES. Age of first use: 15. Date of last use: 09/11/18. Alprazolam (Xanax). Substance route: Oral. Frequency: Daily. Amount used: 12MG. Age of first use: 15. Date of last use: 09/11/18. Cocaine. Substance route: Injection. Frequency: Daily. Amount used: $60. Age of first use: 15. Date of last use: 09/11/18. Alcohol. Substance route: Oral. Frequency: Daily. Amount used: 2 PINTS of Vodka/day. Age of first use: 10. Date of last use: 09/12/18. Benzodiazepine (Klonopin). Substance route: Oral. Frequency: Daily. Amount used: 5MG. Age of first use: 15. Date of last use: 09/12/18 Medical History: Hepatitis C + history of abdominal surgery for peritoneal mesothelioma (2012). Psychiatric History: Patient endorses a history of 4-5 psychiatric hospitalizations (most recent admission was to [facility] in 2014 for suicide attempt via self-mutilation). Mr Gallegos is diagnosed with Bipolar Disorder. First contact with the Mental Health system was in 2001 (overdose with "pills"). Since that year, the patient has been committed to various institutions which include [facility], [facility] (2003 ) and [facility] (in 2005 : overdose with olanzapine, seroquel and xanax) . Patient reports past maintenance treatment with depakote, seroquel, zyprexa, celexa, zoloft and trazodone. Chronically non-adherent to medications + psychiatric OPD care. Has reportedly not seen a psychiatrist " for more than 6 months. History of multiple suicide attempts (self-mutilation, overdose with medications). Dropped out of methadone maintenance (used to be on 100 mg/day). Additional Comment: Urine drug screen results: ROSALIE-Cocaine, MET-Methamphetamine , FEN-Fentanyl, MOP-Opiates, OXY-Oxycodone, MDMA-Ecstasy. Noted. Mental Status Exam - Mental Status Exam Alert and Oriented to: Time, Place, Person Cognitive Function: Good Patient Appearance: Unkempt, Disheveled Mood: Nervous, Withdrawn, Anxious Affect: Mood Congruent, Constricted Patient Behavior: Fatigued, Appropriate, Cooperative Speech Pattern: Clear, Appropriate Voice Loudness: Normal Thought Process: Goal Oriented Thought Disorder: Not Present Hallucinations: Denies Suicidal Ideation: Denies Homicidal Ideation: Denies Insight/Judgement: Poor Sleep: Poorly, Difficulty falling asleep Appetite: Fair Muscle strength/Tone: Normal Gait/Station: Normal Psychiatric Findings - Problem List (Almo 1, 2,3) (1) Opioid dependence with withdrawal Current Visit: Yes Status: Acute (2) Alcohol dependence with uncomplicated withdrawal Current Visit: Yes Status: Acute (3) Cocaine dependence Current Visit: Yes Status: Chronic Qualifiers: Substance use status: uncomplicated Qualified Code(s): F14.20 - Cocaine dependence, uncomplicated (4) Nicotine dependence Current Visit: Yes Status: Chronic Qualifiers: Nicotine product type: cigarettes Substance use status: in withdrawal Qualified Code(s): F17.213 - Nicotine dependence, cigarettes, with withdrawal (5) Substance induced mood disorder Current Visit: Yes Status: Chronic (6) History of bipolar disorder Current Visit: Yes Status: Chronic (7) Insomnia Current Visit: Yes Status: Chronic (8) Non-compliance Current Visit: Yes Status: Chronic - Initial Treatment Plan Initial Treatment Plan: Psychoeducation. Sleep hygiene. Detoxification. AA/NA meeetings. Seroquel 100 mg po hs. Ordered at patient's specific request. Side effects/benefits discussed with the patient. Verbal consent granted to MD. Núñez.
[2018-09-13] MEDS ORDERED: QUEtiapine FUMARATE 100 MG TABLET (FP) PO SCH (22:00)
[2018-09-13] MEDS ORDERED: THIAMINE HCL 100 MG TABLET (FP) PO SCH (22:00)
[2018-09-14] MEDS: chlordiazePOXIDE HCL 25 MG CAPSULE PO PRN ×2 (05:54→13:21)
[2018-09-14] MEDS: chlordiazePOXIDE HCL 25 MG CAPSULE PO SCH ×4 (06:00→17:55)
[2018-09-14] MEDS ORDERED: METHADONE HCL 10 MG TABLET (FOR DETOX USE ONLY) ONE (08:46)
[2018-09-14] MEDS ORDERED: METHADONE HCL 5 MG TABLET (FOR DETOX USE ONLY) ONE (08:47)
[2018-09-14] MEDS: PRENATAL VITAMINS W/ FOLIC ACID TABLET (FP) PO SCH (09:43)
[2018-09-14] MEDS ORDERED: METHADONE (DETOX) 20 MG, METHADONE (DETOX) 5 MG PO ONE (10:00)
[2018-09-14] MEDS: NICOTINE 14 MG/24 HOURS TOPICAL PATCH TD SCH (10:03)
[2018-09-14 12:18] LABS: HEMATOCRIT 36.9 % (35.4-49); HEMOGLOBIN 12.4 GM/dL (11.7-16.9); MCH 30.1 pg (25.7-33.7); MCHC 33.7 g/dl (32.0-35.9); MEAN CELL VOLUME 89.3 fl (80-96); MEAN PLT VOLUME 10.1 fl (7.5-11.1); PLATELET COUNT 102 K/MM3 (134-434); RBC 4.13 M/mm3 (4.00-5.60); RDW 13.9 % (11.9-15.9); WHITE BLOOD COUNT 6.1 K/mm3 (4.0-10.0)
[2018-09-14 12:34] LABS: BILIRUBIN,TOTAL 0.2 mg/dL (0.2-1); BLOOD UREA NITROGEN 13.5 mg/dL (7-18); CREATININE 0.7 mg/dL (0.55-1.3)
--- NOTE | 2018-09-14 13:42 | PN ---
[facility] CIWA - CIWA Score Nausea/Vomitin-Mild Nausea/No Vomiting Muscle Tremors: 4-Moderate,w/Arms Extend Anxiety: 3 Agitation: 3 Paroxysmal Sweats: 1-Minimal Palms Moist Orientation: 0-Oriented Tacttile Disturbances: 1-Very Mild Itch/Numbness Auditory Disturbances: 0-None Visual Disturbances: 0-None Headache: 1-Very Mild CIWA-Ar Total Score: 14 S COWS - Scale Resting Pulse: 0= [place] 80 or Below Sweatin= Chills/Flushing Restless Observation: 0= Sits Still Pupil Size: 0= Normal to Room Light Bone or Joint Aches: 1= Mild Discomfort Runny Nose/ Eye Tearin= Nasal Congestion GI Upset > 30mins: 2= Nausea/Diarrhea Tremor Observation of Outstretched Hands: 2= Slight Tremor Visible Yawning Observation: 1= 1-2x During Session Anxiety or Irritability: 2=Irritable/Anxious Goose Flesh Skin: 0=Smooth Skin COWS Score: 10 [facility] Progress Note (SOAP) Subjective: reported doing well with librium and methadone less tremor mild body aches sleep better at night Objective: 09/14/18 13:43 Vital Signs Temperature 97.9 F 09/14/18 13:34 Pulse Rate 65 09/14/18 13:34 Respiratory Rate 18 09/14/18 13:34 Blood Pressure 129/79 09/14/18 13:34 O2 Sat by Pulse Oximetry (%) Laboratory Last Values WBC 6.1 K/mm3 (4.0-10.0) 09/14/18 07:00 RBC 4.13 M/mm3 (4.00-5.60) 09/14/18 07:00 Hgb 12.4 GM/dL (11.7-16.9) 09/14/18 07:00 Hct 36.9 % (35.4-49) 09/14/18 07:00 MCV 89.3 fl (80-96) 09/14/18 07:00 MCH 30.1 pg (25.7-33.7) 09/14/18 07:00 MCHC 33.7 g/dl (32.0-35.9) 09/14/18 07:00 RDW 13.9 % (11.9-15.9) 09/14/18 07:00 Plt Count 102 K/MM3 (134-434) L 09/14/18 07:00 MPV 10.1 fl (7.5-11.1) 09/14/18 07:00 Sodium 142 mmol/L (136-145) 09/14/18 07:00 Potassium 4.0 mmol/L (3.5-5.1) 09/14/18 07:00 Chloride 109 mmol/L (98-107) H 09/14/18 07:00 Carbon Dioxide 30 mmol/L (21-32) 09/14/18 07:00 Anion Gap 3 MMOL/L (8-16) L 09/14/18 07:00 BUN 13.5 mg/dL (7-18) 09/14/18 07:00 Creatinine 0.7 mg/dL (0.55-1.3) 09/14/18 07:00 Est GFR (CKD-EPI)AfAm 138.75 09/14/18 07:00 Est GFR (CKD-EPI)NonAf 119.71 09/14/18 07:00 Random Glucose 74 mg/dL (74-106) 09/14/18 07:00 Calcium 9.0 mg/dL (8.5-10.1) 09/14/18 07:00 Total Bilirubin 0.2 mg/dL (0.2-1) 09/14/18 07:00 AST 11 U/L (15-37) L 09/14/18 07:00 ALT 16 U/L (13-61) 09/14/18 07:00 Alkaline Phosphatase 78 U/L (45-117) 09/14/18 07:00 Total Protein 6.0 g/dl (6.4-8.2) L 09/14/18 07:00 Albumin 3.0 g/dl (3.4-5.0) L 09/14/18 07:00 Urine Color Yellow 09/13/18 16:11 Urine Appearance Cloudy 09/13/18 16:11 Urine pH 7.5 (5.0-8.0) D 09/13/18 16:11 Ur Specific [place] 1.020 (1.010-1.035) 09/13/18 16:11 Urine Protein Negative (NEGATIVE) 09/13/18 16:11 Urine Glucose (UA) Negative (NEGATIVE) 09/13/18 16:11 Urine Ketones Negative (NEGATIVE) 09/13/18 16:11 Urine Blood Negative (NEGATIVE) 09/13/18 16:11 Urine Nitrite Negative (NEGATIVE) 09/13/18 16:11 Urine Bilirubin Negative (NEGATIVE) 09/13/18 16:11 Urine Urobilinogen 1.0 mg/dL (0.2-1.0) 09/13/18 16:11 Ur Leukocyte Esterase Negative (NEGATIVE) 09/13/18 16:11 lab noted Assessment: 09/14/18 13:44 alcohol benzo and opiate withdrawal sx Plan: continue alcohol benzo and opiate detox
[2018-09-14] MEDS: hydrOXYzine HCL 25 MG TABLET (FP) PO PRN (17:16)
[2018-09-14 17:45] VITALS: BP 117/73; PULSE 55; TEMP 97.1
--- NOTE | 2018-09-14 17:55 | DS ---
[facility] Detox Discharge Summary Admission Date: 09/12/18 Discharge Date: 09/14/18 - History Present History: Alcohol Dependence, Opioid Dependence Pertinent Past History: hx/o polysusbtance presented for alcohol and heroin detox. Daily use of heroin and alcohol. IVDU. PMHx:Hep c w/ tx MHHx: Bipolar - Physical Exam Results Vital Signs: Vital Signs Temperature 97.1 F L 09/14/18 17:44 Pulse Rate 55 L 09/14/18 17:44 Respiratory Rate 16 09/14/18 17:44 Blood Pressure 117/73 09/14/18 17:44 O2 Sat by Pulse Oximetry (%) Pertinent Admission Physical Exam Findings: Presented w/alcohol and opioid withdrawal symptoms and admitted to detox. Laboratory Last Values WBC 6.1 K/mm3 (4.0-10.0) 09/14/18 07:00 RBC 4.13 M/mm3 (4.00-5.60) 09/14/18 07:00 Hgb 12.4 GM/dL (11.7-16.9) 09/14/18 07:00 Hct 36.9 % (35.4-49) 09/14/18 07:00 MCV 89.3 fl (80-96) 09/14/18 07:00 MCH 30.1 pg (25.7-33.7) 09/14/18 07:00 MCHC 33.7 g/dl (32.0-35.9) 09/14/18 07:00 RDW 13.9 % (11.9-15.9) 09/14/18 07:00 Plt Count 102 K/MM3 (134-434) L 09/14/18 07:00 MPV 10.1 fl (7.5-11.1) 09/14/18 07:00 Sodium 142 mmol/L (136-145) 09/14/18 07:00 Potassium 4.0 mmol/L (3.5-5.1) 09/14/18 07:00 Chloride 109 mmol/L (98-107) H 09/14/18 07:00 Carbon Dioxide 30 mmol/L (21-32) 09/14/18 07:00 Anion Gap 3 MMOL/L (8-16) L 09/14/18 07:00 BUN 13.5 mg/dL (7-18) 09/14/18 07:00 Creatinine 0.7 mg/dL (0.55-1.3) 09/14/18 07:00 Est GFR (CKD-EPI)AfAm 138.75 09/14/18 07:00 Est GFR (CKD-EPI)NonAf 119.71 09/14/18 07:00 Random Glucose 74 mg/dL (74-106) 09/14/18 07:00 Calcium 9.0 mg/dL (8.5-10.1) 09/14/18 07:00 Total Bilirubin 0.2 mg/dL (0.2-1) 09/14/18 07:00 AST 11 U/L (15-37) L 09/14/18 07:00 ALT 16 U/L (13-61) 09/14/18 07:00 Alkaline Phosphatase 78 U/L (45-117) 09/14/18 07:00 Total Protein 6.0 g/dl (6.4-8.2) L 09/14/18 07:00 Albumin 3.0 g/dl (3.4-5.0) L 09/14/18 07:00 Urine Color Yellow 09/13/18 16:11 Urine Appearance Cloudy 09/13/18 16:11 Urine pH 7.5 (5.0-8.0) D 09/13/18 16:11 Ur Specific [place] 1.020 (1.010-1.035) 09/13/18 16:11 Urine Protein Negative (NEGATIVE) 09/13/18 16:11 Urine Glucose (UA) Negative (NEGATIVE) 09/13/18 16:11 Urine Ketones Negative (NEGATIVE) 09/13/18 16:11 Urine Blood Negative (NEGATIVE) 09/13/18 16:11 Urine Nitrite Negative (NEGATIVE) 09/13/18 16:11 Urine Bilirubin Negative (NEGATIVE) 09/13/18 16:11 Urine Urobilinogen 1.0 mg/dL (0.2-1.0) 09/13/18 16:11 Ur Leukocyte Esterase Negative (NEGATIVE) 09/13/18 16:11 Labs reviewed. - Treatment Hospital Course: Detox Protocol Followed (Patient did not complete detox.) - Medication Discharge Medications: Ambulatory Orders Citalopram Hydrobromide [Celexa -] 10 mg PO DAILY #30 tablet 03/24/16 Quetiapine Fumarate [Seroquel] 100 mg PO HS #30 tablet 03/24/16 Ranitidine HCl [Zantac] 150 mg PO DAILY 09/12/18 - Diagnosis (1) Alcohol dependence with uncomplicated withdrawal Status: Acute (2) IVDU (intravenous drug user) Status: Chronic (3) Opioid dependence with withdrawal Status: Acute (4) Bipolar disorder Status: Chronic Qualifiers: Active/Remission status: remission status unspecified Qualified Code(s): F31.9 - Bipolar disorder, unspecified (5) Cocaine dependence, uncomplicated Status: Chronic (6) Hepatitis C Status: Chronic Qualifiers: Viral hepatitis chronicity: chronic Hepatic coma status: without hepatic coma Qualified Code(s): B18.2 - Chronic viral hepatitis C (7) Nicotine dependence Status: Chronic Qualifiers: Nicotine product type: cigarettes Substance use status: in withdrawal Qualified Code(s): F17.213 - Nicotine dependence, cigarettes, with withdrawal - AMA Did Patient Leave Against Medical Advice: Yes (Alert and Oriented. Patient refused to stay despite encouragement. )
[2018-09-15] MEDS ORDERED: chlordiazePOXIDE HCL 10 MG CAPSULE PO PRN
[2018-09-15] MEDS ORDERED: chlordiazePOXIDE HCL 10 MG CAPSULE PO SCH (05:00)
[2018-09-15] MEDS ORDERED: METHADONE HCL 10 MG TABLET (FOR DETOX USE ONLY) PO ONE (10:00)
[2018-09-16] MEDS ORDERED: chlordiazePOXIDE HCL 10 MG CAPSULE PO SCH ×2 (05:00)
[2018-09-16] MEDS ORDERED: METHADONE (DETOX) 10 MG, METHADONE (DETOX) 5 MG PO ONE (10:00)
[2018-09-17] MEDS ORDERED: chlordiazePOXIDE HCL 10 MG CAPSULE PO ONE (05:00)
[2018-09-17] MEDS ORDERED: METHADONE HCL 10 MG TABLET (FOR DETOX USE ONLY) PO ONE (10:00)
[2018-09-18] MEDS ORDERED: METHADONE HCL 5 MG TABLET (FOR DETOX USE ONLY) PO ONE (06:00)
== END 2018-09-14 18:30 | disposition left against medical advice (07) | DRG 770 ==
LOC: YASAS 18:20 → Y3N 23:51
PROVIDERS: ADMIT Surgery; ATTEND Surgery
PROC: HZ2ZZZZ Detoxification Services for Substance Abuse Treatment (ICD-10-PCS; principal; 2018-09-12)
DX: F11.23 Opioid dependence with withdrawal (principal); F10.230 Alcohol dependence with withdrawal, uncomplicated; F13.230 Sedative, hypnotic or anxiolytic dependence with withdrawal, uncomplicated; F14.20 Cocaine dependence, uncomplicated; F17.213 Nicotine dependence, cigarettes, with withdrawal; F31.9 Bipolar disorder, unspecified; F19.24 Other psychoactive substance dependence with psychoactive substance-induced mood disorder; B18.2 Chronic viral hepatitis C; G47.00 Insomnia, unspecified; R63.8 Other symptoms and signs concerning food and fluid intake; Z92.3 Personal history of irradiation; Z92.21 Personal history of antineoplastic chemotherapy; Z85.028 Personal history of other malignant neoplasm of stomach; Z91.19 Patient's noncompliance with other medical treatment and regimen; Z91.5 Personal history of self-harm
CPT/HCPCS: 36415; 80053; 81003; 85027; 86593; J0735; Q0162

== ENCOUNTER 2019-12-02 14:13 | Inpatient (IN) | payer OTHER ==
--- OUTSIDE RECORDS SUMMARY | 2019-12-02 14:16 | XMS ---
:1980 Author Organization [facility] Support Name Relationship Address Phone YARA MACIEL PARTNER [address] [place] [address] UE Unavailable Unavailable Unavailable JOSE KELLEY [address] [place] [address] Re-disclosure Warning The records that you are about to access may contain information from federally- assisted alcohol or drug abuse programs. If such information is present, then the following federally mandated warning applies: This information has been disclosed to you from records protected by federal confidentiality rules (42 CFR part 2). The federal rules prohibit you from making any further disclosure of this information unless further disclosure is expressly permitted by the written consent of the person to whom it pertains or as otherwise permitted by 42 CFR part 2. A general authorization for the release of medical or other information is NOT sufficient for this purpose. The Federal rules restrict any use of the information to criminally investigate or prosecute any alcohol or drug abuse patient.The records that you are about to access may contain highly sensitive health information, the redisclosure of which is protected by Article 27-F of the [facility] Public Health law. If you continue you may haveaccess to information: Regarding HIV / AIDS; Provided by facilities licensed or operated by the [facility] Office of Mental Health; or Provided by the [facility] Office for People With Developmental Disabilities. If such information is present, then the following [facility] mandated warning applies: This information has been disclosed to you from confidential records which are protected by state law. State law prohibits you from making any further disclosure of this information without the specific written consent of the person to whom it pertains, or as otherwise permitted by law. Any unauthorized further disclosure in violation of state law may result in a fine or fdc sentence or both. A general authorization for the release of medical or other information is NOT sufficient authorization for further disclosure. Insurance Providers Payer name Policy type Policy ID Covered Covered republican's Policy P champ / Coverage republican ID relationship to [employer] orm[employer] type fowler BEACON [id number] LESTER [id number] ANGELO
--- NOTE | 2019-12-02 17:14 | BHS.RME ---
Substance Use & Tx History - Substance Use History Alcohol Substance amount: 2 pints of vodka/6 packs of 16 ozs of beer Frequency of use: Daily Date of Last Use: 12/02/19 Klonopin Substance amount: 2mgs Frequency of use: Daily Substance route: Oral Date of Last Use: 12/01/19 Cocaine- Powder Substance amount: 60$ Frequency of use: Daily Substance route: Injection (ex: intravenous or skin popping) Date of Last Use: 12/01/19 Heroin Substance amount: 16 bags Frequency of use: Daily Substance route: Injection (ex: intravenous or skin popping) Date of Last Use: 12/01/19 - Last Treatment Date of last treatment: [facility] 09/12/18 to 09/14/18 not completed Where was last treatment: Detox Physical/Psych/Mental Status - Behavior Eye Contact: Normal - Cooperativeness Cooperativeness: Cooperative - Thinking Thought Processes: Logical Thought content: Future oriented - Physical Health Problems Is patient presently having any pain?: No Does patient presently have any injuries (include location): No Does patient currently have a fever: No CIWA Nausea/Vomitin Muscle Tremors: 3 Anxiety: 3 Agitation: 3 Paroxysmal Sweats: 1-Minimal Palms Moist Orientation: 0-Oriented Tacttile Disturbances: 1-Very Mild Itch/Numbness Auditory Disturbances: 0-None Visual Disturbances: 0-None Headache: 2-Mild CIWA-Ar Total Score: 16
--- NOTE | 2019-12-02 17:31 | HP ---
CIWA Score Nausea/Vomitin Muscle Tremors: 3 Anxiety: 3 Agitation: 3 Paroxysmal Sweats: 1-Minimal Palms Moist Orientation: 0-Oriented Tacttile Disturbances: 1-Very Mild Itch/Numbness Auditory Disturbances: 0-None Visual Disturbances: 0-None Headache: 2-Mild CIWA-Ar Total Score: 16 - Admission Criteria OASAS Guidelines: Admission for Medically Managed Detox: Requires at least one of the followin. CIWA greater than 12 2. Seizures within the past 24 hours 3. Delirium tremens within the past 24 hours 4. Hallucinations within the past 24 hours 5. Acute intervention needed for co occurring medical disorder 6. Acute intervention needed for co occurring psychiatric disorder 7. Severe withdrawal that cannot be handled at a lower level of care (continued vomiting, continued diarrhea, abnormal vital signs) requiring intravenous medication and/or fluids 8. Admitting History and Physical - Admission Chief Complaint: i need help to stop drinking alcohol,and klonopni,heroin abused,. on mmtp 30 mgs/day History of Present Illness: this 39 years old male with alcohol,klonopin dependence,heroin abused,cocaine abused,mmtp 30 mgs/day History Source: Patient Limitations to Obtaining History: No Limitations - Past Medical History Hepatobiliary: Yes: Hepatitis C (treated) - Past Surgical History Additional Past Surgical History: surgery for peritoneal mesolithioma at age of 32 years - Smoking History Smoking history: Current every day smoker Have you smoked in the past 12 months: Yes Aproximately how many cigarettes per day: 20 - Alcohol/Substance Use Hx Alcohol Use: Yes Date of Last Use: 12/02/19 - Social History Usual Living Arrangement: Yes: Other (homeless) Do you think of yourself as: Straight/Heterosexual ADL: Support Services Occupation: unemployed History of Recent Travel: No Other Social History: homeless,unemployed,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 Admission ROS BHS - HPI Chief Complaint: i need help to stop alcohol ,klonopin,heroin abused,mmtp 30 mgs/day,last medicated today,has bottle to take home for sun 12/03/19,mon 12/03/09 denied seizure denied syncope weight loss peritoneal mesothelioma surgery at age of 32 ,s/p radiation and chemotherapy on remission longest sobriety 2 years plan for rehab 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,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,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,homeless Allergies/Adverse Reactions: Allergies Allergy/AdvReac Type Severity Reaction Status Date / Time No Known Allergies Allergy Verified 12/03/19 00:07 History of Present Illness: for detox from alcohol,klonopin,heroin abused,cocaine abused,on mmtp 30 mgs/day,please see chief complaint Exam Limitations: No Limitations - Ebola screening Have you traveled outside of the country in the last 21 days: No Have you had contact with anyone from an Ebola affected area: No Have you been sick,other than usual withdrawal symptoms: No Do you have a fever: No - Review of Systems Constitutional: Loss of Appetite, Malaise, Night Sweats, Changes in sleep, Weakness, Unintentional Wgt. Loss EENT: reports: Nose Congestion Respiratory: reports: No Symptoms reported Cardiac: reports: No Symptoms Reported GI: reports: Nausea, Poor Appetite, Vomiting, Abdominal cramping, Other (sugical scar in midline) : reports: No Symptoms Reported Musculoskeletal: reports: Back Pain, Joint Pain, Muscle Pain Integumentary: reports: Dryness Neuro: reports: Tremors Endocrine: reports: No Symptoms Reported Hematology: reports: No Symptoms Reported Psychiatric: reports: No Sypmtoms Reported, Judgement Intact, Mood/Affect Appropiate, Orientated x3 Patient History - Patient Medical History Hx Anemia: No Hx Asthma: No Hx Chronic Obstructive Pulmonary Disease (COPD): No Hx Cancer: Yes (Peritioneal Mesothelioma, Dx'd 2012, Treated with Chemo, Radiation.) Hx Cardiac Disorders: No Hx Congestive Heart Failure: No Hx Hypertension: No Hx Hypercholesterolemia: No Hx Pacemaker: No HX Cerebrovascular Accident: No Hx Seizures: No Hx Dementia: No Hx Diabetes: No Hx Gastrointestinal Disorders: No Hx Liver Disease: No Hx Genitourinary Disorders: No Hx Sexually Transmitted Disorders: No Hx Renal Disease (ESRD): No Hx Thyroid Disease: No Hx Human Immunodeficiency Virus (HIV): No (negative; Last 10/11) Hx Hepatitis C: Yes (treated; Completed, Early 2018.) Hx Depression: Yes (Meds. in past, None currently.) Hx Suicide Attempt: Yes (X3, LAST EPISODE IN 2013 BY CUTTING THE WRIST, PREVIOUS 2 BY OVERDOSE DRUG) Hx Bipolar Disorder: Yes (No meds.) Hx Schizophrenia: No Other Medical History: no suicidal,no homicidal,did not want to see psuychiatrist - Patient Surgical History Past Surgical History: Yes Hx Neurologic Surgery: No Hx Cataract Extraction: No Hx Cardiac Surgery: No Hx Lung Surgery: No Hx Breast Surgery: No Hx Breast Biopsy: No Hx Abdominal Surgery: Yes (Peritoneal mesothelioma, tumor removal from abdomen, 2013) Hx Appendectomy: No Hx Cholecystectomy: No Hx Genitourinary Surgery: No Hx Section: No Hx Orthopedic Surgery: No Other Surgical History: DENIES. Anesthesia Reaction: No - PPD History Previous Implant?: Yes Documented Results: Negative w/o proof Date: 07/08/18 Results: 0 mm PPD to be Administered?: Yes - Smoking Cessation Smoking history: Current every day smoker Have you smoked in the past 12 months: Yes Aproximately how many cigarettes per day: 20 Cigars Per Day: 0 Hx Chewing Tobacco Use: No Initiated information on smoking cessation: Yes 'Breaking Loose' booklet given: 12/02/19 - Substance & Tx. History Hx Alcohol Use: Yes Hx Substance Use: Yes Substance Use Type: Alcohol, Cocaine, Heroin, Opiates, Tranquilizers Hx Substance Use Treatment: Yes (09/12/18 to 09/14/18 not completed) - Substances abused Alcohol Substance route: Oral Frequency: Daily Amount used: 2 pint of vodka/6 packs of 16 ozs Age of first use: 10 Date of last use: 12/02/19 Benzodiazepine (Klonopin) Substance route: Oral Frequency: Daily Amount used: 2mgs Age of first use: 15 Date of last use: 12/01/19 Cocaine Substance route: Injection Amount used: 60$ Age of first use: 12 Date of last use: 12/01/19 Heroin Substance route: Injection Frequency: Daily Amount used: 16 BAGS Age of first use: 12 Date of last use: 12/01/19 Admission Physical Exam [facility] - Vital Signs Vital Signs: BP128/66 P61 R18 T97.6 MADHAVI 0.000 PULSE OX 97% - Physical General Appearance: Yes: Moderate Distress, Tremorous, Irritable, Sweating, Anxious HEENTM: Yes: Normal ENT Inspection, AMI, Pharynx Normal Respiratory: Yes: Lungs Clear, Normal Breath Sounds, No Respiratory Distress Neck: Yes: Within Normal Limits, Supple, Trachea in good position Breast: Yes: Within Normal Limits Cardiology: Yes: Within Normal Limits, Regular Rhythm, Regular Rate, S1, S2 Abdominal: Yes: Within Normal Limits, Normal Bowel Sounds, Non Tender, Soft, Surgical Scar Genitourinary: Yes: Within Normal Limits Back: Yes: Muscle Spasm Musculoskeletal: Yes: Back pain, Muscle Pain Extremities: Yes: Normal Range of Motion, Tremors 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 intact, Alert, Motor Strength 5/5 Integumentary: Yes: Dry Lymphatic: Yes: Within Normal Limits - Diagnostic (1) Depression Current Visit: Yes Status: Acute (2) Alcohol dependence with uncomplicated withdrawal Current Visit: No Status: Acute (3) Sedative/hypnotic withdrawal without complication Current Visit: No Status: Acute (4) Cocaine dependence Current Visit: No Status: Chronic Qualifiers: Substance use status: uncomplicated Qualified Code(s): F14.20 - Cocaine dependence, uncomplicated (5) Hepatitis C Current Visit: No Status: Chronic Qualifiers: Viral hepatitis chronicity: chronic Hepatic coma status: without hepatic coma Qualified Code(s): B18.2 - Chronic viral hepatitis C (6) IVDU (intravenous drug user) Current Visit: No Status: Chronic (7) Methadone maintenance therapy patient Current Visit: No Status: Chronic Comment: 80mg received today; pending verification. (8) History of abdominal surgery Current Visit: No Status: Resolved Comment: Rmoval of Malignant Tumor. (9) Hx of malignant mesothelioma Current Visit: No Status: Resolved Comment: in remission (10) Weight loss Current Visit: Yes Status: Acute Cleared for Admission S - Detox or Rehab [facility] Level of Care: Medically Managed Detox Regimen/Protocol: Valium Breathalyzer - Breathalyzer Breathalyzer: 0 Urine Drug Screen - Test Device Lot number: [id number] Expiration date: 06/21/20 - Control Is test valid?: Yes - Results Drug screen NEGATIVE: No Urine drug screen results: ROSALIE-Cocaine, MET-Methamphetamine, FEN-Fentanyl, MOP- Opiates, OXY-Oxycodone, MDMA-Ecstasy Inpatient Rehab Admission - Rehab Decision to Admit Inpatient rehab admission?: No
--- OUTSIDE RECORDS SUMMARY | 2019-12-02 17:31 | XMS ---
:1980 Author Organization [facility] Support Name Relationship Address Phone YARA MACIEL PARTNER [address] [place] [address] UE Unavailable Unavailable Unavailable JOSE KELLEY [address] [place] [address] Re-disclosure Warning The records that you are [...] is protected by Article 27-F of the [facility] Public Health law. If you continue you may haveaccess to information: Regarding HIV / AIDS; Provided by facilities licensed or operated by the [facility] Office of Mental Health; or Provided by the [facility] Office for People With Developmental Disabilities. If such information is present, then the following [facility] mandated warning applies: This information has been [...] law may result in a fine or halfway sentence or both. A general authorization for the release of medical or other information is NOT sufficient authorization for further disclosure. Insurance Providers Payer name Policy type Policy ID Covered Covered green party's Policy P champ / Coverage green party ID relationship to [employer] or[employer] type fowler BEDAVE [id number] SP [id number] ANGELO WATSON [id number] LESTER [id number] ANGELO
[2019-12-02] MEDS ORDERED: ACETAMINOPHEN 325 MG TABLET (FP) PO PRN (18:01)
[2019-12-02] MEDS ORDERED: MAGNESIUM HYDROX 2400MG/30ML ORAL SUSPENSION 30 ML CUP PO PRN (18:01)
[2019-12-02] MEDS ORDERED: MAGNESIUM CITRATE 300 ML BOTTLE PO PRN (18:01)
[2019-12-02] MEDS ORDERED: MENTHOL/PHENOL 1 EACH UD MM PRN (18:01)
[2019-12-02] MEDS ORDERED: ONDANSETRON *ODT* 4 MG TABLET SL PRN (18:01)
[2019-12-02] MEDS ORDERED: MAG HYDROX/AL HYDROX/SIMETH 30 ML UNIT-DOSE CUP PO PRN (18:01)
[2019-12-02 18:06] VITALS: BMI 25.0
[2019-12-02] MEDS: diazePAM 5 MG TABLET PO PRN (19:28)
[2019-12-02] MEDS: MELATONIN 5 MG TABLETS PO SCH (22:09)
[2019-12-02] MEDS: THIAMINE HCL 100 MG TABLET (FP) PO SCH (22:09)
[2019-12-02] MEDS: diazePAM 5 MG TABLET PO SCH (22:09)
[2019-12-02] MEDS: IBUPROFEN 400 MG TABLET (FP) PO PRN (22:10)
[2019-12-02] MEDS: METHOCARBAMOL 500 MG TABLET PO PRN (22:10)
[2019-12-02] MEDS: hydrOXYzine PAMOATE 25 MG CAPSULE (FP) PO SCH (22:10)
[2019-12-03] MEDS: diazePAM 5 MG TABLET PO PRN ×4 (02:22→19:15)
[2019-12-03] MEDS ORDERED: METHADONE HCL 10 MG TABLET PO ONE (06:00)
[2019-12-03] MEDS: hydrOXYzine PAMOATE 25 MG CAPSULE (FP) PO SCH ×5 (06:02→23:15)
[2019-12-03] MEDS: diazePAM 5 MG TABLET PO SCH ×4 (06:02→22:02)
[2019-12-03] MEDS: PRENATAL VITAMINS W/ FOLIC ACID TABLET (FP) PO SCH (09:58)
[2019-12-03] MEDS: NICOTINE 21 MG/24 HOURS TOPICAL PATCH TD SCH (10:03)
[2019-12-03 10:13] LABS: HEMATOCRIT 40.4 % (35.4-49); HEMOGLOBIN 13.3 GM/dL (11.7-16.9); MCH 29.9 pg (25.7-33.7); MCHC 32.8 g/dl (32.0-35.9); MEAN CELL VOLUME 91.2 fl (80-96); PLATELET COUNT 150 K/MM3 (134-434); RBC 4.43 M/mm3 (4.00-5.60); RDW 14.6 % (11.9-15.9); WHITE BLOOD COUNT 6.6 K/mm3 (4.0-10.0)
[2019-12-03 10:23] LABS: ALBUMIN 3.2 g/dl (3.4-5.0); BILIRUBIN,TOTAL 0.3 mg/dL (0.2-1); BLOOD UREA NITROGEN 19.5 mg/dL (7-18); CREATININE 0.8 mg/dL (0.55-1.3); POTASSIUM 4.6 mmol/L (3.5-5.1); TOT PROT 7.2 g/dl (6.4-8.2)
[2019-12-03] MEDS: METHOCARBAMOL 500 MG TABLET PO PRN ×2 (10:30→17:11)
[2019-12-03] MEDS: IBUPROFEN 400 MG TABLET (FP) PO PRN ×2 (10:31→17:11)
[2019-12-03 10:47] LABS: URINE APPEARANCE Clear; URINE BILIRUBIN Negative (NEGATIVE); URINE COLOR Yellow; URINE GLUCOSE (UA) Negative (NEGATIVE); URINE KETONE Negative (NEGATIVE); URINE LEUK ESTERASE Negative (NEGATIVE); URINE NITRITE Negative (NEGATIVE); URINE PROTEIN Negative (NEGATIVE); URINE UROBILINOGEN 0.2 mg/dL (0.2-1.0)
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
[2019-12-03] MEDS: ACETAMINOPHEN 325 MG TABLET (FP) PO PRN (13:37)
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
[2019-12-03] MEDS: BISMUTH SUBSALICYLATE 524 MG/30 ML UD PO PRN (19:31)
[2019-12-03] MEDS ORDERED: AMITRIPTYLINE HCL 50 MG TABLET PO SCH (22:00)
[2019-12-03] MEDS: THIAMINE HCL 100 MG TABLET (FP) PO SCH (22:02)
[2019-12-03] MEDS: MELATONIN 5 MG TABLETS PO SCH (22:02)
[2019-12-03] MEDS: AMITRIPTYLINE HCL 25 MG TABLET PO SCH (22:02)
[2019-12-04] MEDS: diazePAM 5 MG TABLET PO PRN ×3 (01:35→17:37)
[2019-12-04] MEDS: IBUPROFEN 400 MG TABLET (FP) PO PRN ×3 (01:36→21:17)
[2019-12-04] MEDS: diazePAM 5 MG TABLET PO SCH ×3 (05:42→21:14)
[2019-12-04] MEDS: hydrOXYzine PAMOATE 25 MG CAPSULE (FP) PO SCH ×5 (05:56→21:21)
[2019-12-04] MEDS ORDERED: METHADONE HCL 10 MG TABLET PO ONE (06:00)
[2019-12-04] MEDS: METHOCARBAMOL 500 MG TABLET PO PRN ×2 (09:57→21:17)
[2019-12-04] MEDS: PRENATAL VITAMINS W/ FOLIC ACID TABLET (FP) PO SCH (09:57)
[2019-12-04] MEDS: NICOTINE 21 MG/24 HOURS TOPICAL PATCH TD SCH (10:00)
[2019-12-04] MEDS: NICOTINE POLACRILEX 2 MG GUM BUC PRN (10:00)
--- NOTE | 2019-12-04 12:52 | PN ---
S CIWA - CIWA Score Nausea/Vomitin-Mild Nausea/No Vomiting Muscle Tremors: 2 Anxiety: 2 Agitation: 1-Slight > Activity Paroxysmal Sweats: No Perspiration Orientation: 0-Oriented Tacttile Disturbances: 0-None Auditory Disturbances: 0-None Visual Disturbances: 0-None Headache: 2-Mild CIWA-Ar Total Score: 8 BHS Progress Note (SOAP) Subjective: 39 years old male was admitted on 12/02/19 for alcohol and benzo withdrawal sx m anagement treating with valium detox regiment received methadone 30 mg po today feels ok toay ate breakfast and lunch in room social with peers in day room mr bryson prefers to go to [facility] but [facility] can be a place for his benzo and alcohol abuse treatment Objective: 12/04/19 12:53 Vital Signs - 24 hr 12/03/19 12/03/19 12/04/19 16:53 20:19 06:55 Temperature 97.3 F L 98.2 F 97.5 F L Pulse Rate 73 74 84 Respiratory 17 17 18 Rate Blood Pressure 148/73 134/74 121/80 O2 Sat by Pulse 95 97 Oximetry (%) 12/04/19 09:23 Temperature 96.9 F L Pulse Rate 68 Respiratory 18 Rate Blood Pressure 124/78 O2 Sat by Pulse 97 Oximetry (%) Laboratory Tests 12/02/19 12/03/19 12/03/19 18:00 07:35 07:35 WBC 6.6 RBC 4.43 Hgb 13.3 Hct 40.4 MCV 91.2 MCH 29.9 MCHC 32.8 RDW 14.6 Plt Count 150 D MPV 12.0 H D Sodium Potassium Chloride Carbon Dioxide Anion Gap BUN Creatinine Est GFR (CKD-EPI)AfAm Est GFR (CKD-EPI)NonAf Random Glucose Calcium Total Bilirubin AST ALT Alkaline Phosphatase Total Protein Albumin Urine Color Urine Appearance Urine pH Ur Specific [place] Urine Protein Urine Glucose (UA) Urine Ketones Urine Blood Urine Nitrite Urine Bilirubin Urine Urobilinogen Ur Leukocyte Esterase Syphilis Serology Non-reactive COVID-19 (LOR) Not detected 12/03/19 12/03/19 07:35 08:20 WBC RBC Hgb Hct MCV MCH MCHC RDW Plt Count MPV Sodium 139 Potassium 4.6 Chloride 102 Carbon Dioxide 34 H Anion Gap 3 L BUN 19.5 H Creatinine 0.8 Est GFR (CKD-EPI)AfAm 129.51 Est GFR (CKD-EPI)NonAf 111.74 Random Glucose 72 L Calcium 9.0 Total Bilirubin 0.3 AST 21 ALT 26 Alkaline Phosphatase 122 H Total Protein 7.2 Albumin 3.2 L Urine Color Yellow Urine Appearance Clear Urine pH 7.0 Ur Specific [place] 1.020 Urine Protein Negative Urine Glucose (UA) Negative Urine Ketones Negative Urine Blood Negative Urine Nitrite Negative Urine Bilirubin Negative Urine Urobilinogen 0.2 Ur Leukocyte Esterase Negative Syphilis Serology COVID-19 (LOR) lab noted Assessment: 12/04/19 12:54 alcohol and benzo withdrawal Plan: valium regiment
[2019-12-04] MEDS: BISMUTH SUBSALICYLATE 524 MG/30 ML UD PO PRN (17:38)
[2019-12-04] MEDS: ACETAMINOPHEN 325 MG TABLET (FP) PO PRN (17:38)
[2019-12-04] MEDS: AMITRIPTYLINE HCL 25 MG TABLET PO SCH (21:14)
[2019-12-04] MEDS: MELATONIN 5 MG TABLETS PO SCH (21:15)
[2019-12-04] MEDS: THIAMINE HCL 100 MG TABLET (FP) PO SCH (21:21)
[2019-12-05] MEDS: diazePAM 5 MG TABLET PO SCH ×2 (05:22→17:25)
[2019-12-05] MEDS: hydrOXYzine PAMOATE 25 MG CAPSULE (FP) PO SCH ×3 (05:22→13:27)
[2019-12-05] MEDS: METHADONE HCL 10 MG TABLET PO SCH (07:51)
[2019-12-05] MEDS: diazePAM 5 MG TABLET PO PRN ×2 (10:11→14:52)
[2019-12-05] MEDS: METHOCARBAMOL 500 MG TABLET PO PRN ×2 (10:11→22:00)
[2019-12-05] MEDS: PRENATAL VITAMINS W/ FOLIC ACID TABLET (FP) PO SCH (10:11)
[2019-12-05] MEDS: IBUPROFEN 400 MG TABLET (FP) PO PRN ×2 (10:11→22:00)
[2019-12-05] MEDS: NICOTINE POLACRILEX 2 MG GUM BUC PRN ×2 (10:13→13:27)
[2019-12-05] MEDS: NICOTINE 21 MG/24 HOURS TOPICAL PATCH TD SCH (10:55)
[2019-12-05] MEDS: ACETAMINOPHEN 325 MG TABLET (FP) PO PRN (13:23)
--- NOTE | 2019-12-05 13:48 | PN ---
S CIWA - CIWA Score Nausea/Vomitin-No Nausea/No Vomiting Muscle Tremors: 1-None Visible, but [place] Anxiety: 2 Agitation: 0-Normal Activity Paroxysmal Sweats: No Perspiration Orientation: 0-Oriented Tacttile Disturbances: 0-None Auditory Disturbances: 0-None Visual Disturbances: 1-Very Mild Sensitivity Headache: 1-Very Mild CIWA-Ar Total Score: 5 BHS Progress Note (SOAP) Subjective: 39 years old male was admitted on 12/02/19 for alcohol and benzo withdrawal sx management treating with valium detox regiment feels better today less anxious mild tremor loose stool imodium 4 mg po x 1 Objective: 12/05/19 13:47 Vital Signs - 24 hr 12/04/19 12/04/19 12/05/19 16:28 20:07 06:30 Temperature 96.9 F L 97.5 F L 97.1 F L Pulse Rate 107 H 75 75 Respiratory 18 18 18 Rate Blood Pressure 135/93 129/93 125/87 O2 Sat by Pulse 97 98 Oximetry (%) 12/05/19 09:16 Temperature 96.4 F L Pulse Rate 97 H Respiratory 20 Rate Blood Pressure 130/83 O2 Sat by Pulse Oximetry (%) Laboratory Tests 12/02/19 12/03/19 12/03/19 18:00 07:35 07:35 WBC 6.6 RBC 4.43 Hgb 13.3 Hct 40.4 MCV 91.2 MCH 29.9 MCHC 32.8 RDW 14.6 Plt Count 150 D MPV 12.0 H D Sodium Potassium Chloride Carbon Dioxide Anion Gap BUN Creatinine Est GFR (CKD-EPI)AfAm Est GFR (CKD-EPI)NonAf Random Glucose Calcium Total Bilirubin AST ALT Alkaline Phosphatase Total Protein Albumin Urine Color Urine Appearance Urine pH Ur Specific [place] Urine Protein Urine Glucose (UA) Urine Ketones Urine Blood Urine Nitrite Urine Bilirubin Urine Urobilinogen Ur Leukocyte Esterase Syphilis Serology Non-reactive COVID-19 (LOR) Not detected 12/03/19 12/03/19 07:35 08:20 WBC RBC Hgb Hct MCV MCH MCHC RDW Plt Count MPV Sodium 139 Potassium 4.6 Chloride 102 Carbon Dioxide 34 H Anion Gap 3 L BUN 19.5 H Creatinine 0.8 Est GFR (CKD-EPI)AfAm 129.51 Est GFR (CKD-EPI)NonAf 111.74 Random Glucose 72 L Calcium 9.0 Total Bilirubin 0.3 AST 21 ALT 26 Alkaline Phosphatase 122 H Total Protein 7.2 Albumin 3.2 L Urine Color Yellow Urine Appearance Clear Urine pH 7.0 Ur Specific [place] 1.020 Urine Protein Negative Urine Glucose (UA) Negative Urine Ketones Negative Urine Blood Negative Urine Nitrite Negative Urine Bilirubin Negative Urine Urobilinogen 0.2 Ur Leukocyte Esterase Negative Syphilis Serology COVID-19 (LOR) lab noted Assessment: 12/05/19 13:48 alcohol and benzo withdrawal Plan: valium regiment
[2019-12-05] MEDS ORDERED: LOPERAMIDE HCL 2 MG CAPSULE PO ONE (14:00)
[2019-12-05] MEDS ORDERED: diazePAM 5 MG TABLET PO PRN (19:46)
[2019-12-05] MEDS ORDERED: cloNIDine HCL 0.1 MG TABLET PO PRN ×2 (19:47→19:50)
--- NOTE | 2019-12-05 19:49 | PN ---
[facility] Progress Note Note: 39 y.o. male admitted 12/02/2019 for alcohol use , reports 2 pints/day , sedative / benzodiazepine abuse , reports still has tremors , feeling anxious . Opioid use disorder on MMTP with continued heroin use . Vital Signs - 24 hr 12/04/19 12/05/19 12/05/19 20:07 01:18 06:30 Temperature 97.5 F L 97.3 F L 97.1 F L Pulse Rate 75 97 H 75 Respiratory 18 20 18 Rate Blood Pressure 129/93 149/92 125/87 O2 Sat by Pulse 97 99 98 Oximetry (%) 12/05/19 12/05/19 09:16 16:47 Temperature 96.4 F L 97.3 F L Pulse Rate 97 H 75 Respiratory 20 18 Rate Blood Pressure 130/83 128/71 O2 Sat by Pulse Oximetry (%) P : Valium prn Clonidine prn Nursing to monitor and advise medical of any changes .
[2019-12-05] MEDS: THIAMINE HCL 100 MG TABLET (FP) PO SCH (22:00)
[2019-12-05] MEDS: AMITRIPTYLINE HCL 25 MG TABLET PO SCH (22:00)
[2019-12-05] MEDS: MELATONIN 5 MG TABLETS PO SCH (22:01)
[2019-12-06] MEDS: METHADONE HCL 10 MG TABLET PO SCH (05:32)
[2019-12-06] MEDS ORDERED: diazePAM 5 MG TABLET PO ONE (06:00)
[2019-12-06 09:16] VITALS: BP 114/76; PULSE 89; TEMP 98
[2019-12-06] MEDS: PRENATAL VITAMINS W/ FOLIC ACID TABLET (FP) PO SCH (09:19)
[2019-12-06] MEDS: ACETAMINOPHEN 325 MG TABLET (FP) PO PRN (09:19)
[2019-12-06] MEDS: NICOTINE POLACRILEX 2 MG GUM BUC PRN (09:21)
[2019-12-06] MEDS: NICOTINE 21 MG/24 HOURS TOPICAL PATCH TD SCH (10:19)
[2019-12-06] MEDS: BISMUTH SUBSALICYLATE 524 MG/30 ML UD PO PRN (10:20)
--- NOTE | 2019-12-06 12:05 | DS ---
[facility] Detox Discharge Summary Admission Date: 12/02/19 Discharge Date: 12/06/19 - History Present History: Alcohol Dependence, Sedative Dependence Additional Comments: 39 years old male was admitted on 12/02/19 for alcohol and benzo withdrawal sx management treated with valium detox regiment seen by psychiatrist gabriela medina mr bryson has completed valium regiment and is tolerated well General Appearance: Yes: no Distress, mild Tremorous, not Irritable, no Sweating, mild Anxious HEENTM: Yes: Normal ENT Inspection, AMI, Pharynx Normal Respiratory: Yes: Lungs Clear, Normal Breath Sounds, No Respiratory Distress Neck: Yes: Within Normal Limits, Supple, Trachea in good position Breast: Yes: Within Normal Limits Cardiology: Yes: Within Normal Limits, Regular Rhythm, Regular Rate, S1, S2 Abdominal: Yes: Within Normal Limits, Normal Bowel Sounds, Non Tender, Soft, Surgical Scar Genitourinary: Yes: Within Normal Limits Back: Yes: Muscle Spasm Musculoskeletal: Yes: Back pain, Muscle Pain Extremities: Yes: Normal Range of Motion, Tremors 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, Alert, Motor Strength 5/5 Integumentary: Yes: Dry Lymphatic: Yes: Within Normal Limits Pertinent Past History: time for discharge 48 minutes transferred order set from detox to rehab - Physical Exam Results Vital Signs: Vital Signs Temperature 98.0 F 12/06/19 08:36 Pulse Rate 89 12/06/19 08:36 Respiratory Rate 18 12/06/19 08:36 Blood Pressure 114/76 12/06/19 08:36 O2 Sat by Pulse Oximetry (%) 97 12/06/19 06:30 Pertinent Admission Physical Exam Findings: alcohol and benzo withdrawal Vital Signs - 24 hr 12/05/19 12/05/19 12/06/19 16:47 20:15 06:30 Temperature 97.3 F L 96.8 F L 96.9 F L Pulse Rate 75 84 63 Respiratory 18 16 18 Rate Blood Pressure 128/71 110/68 127/74 O2 Sat by Pulse 98 97 Oximetry (%) 12/06/19 08:36 Temperature 98.0 F Pulse Rate 89 Respiratory 18 Rate Blood Pressure 114/76 O2 Sat by Pulse Oximetry (%) Laboratory Tests 12/02/19 12/03/19 12/03/19 18:00 07:35 07:35 WBC 6.6 RBC 4.43 Hgb 13.3 Hct 40.4 MCV 91.2 MCH 29.9 MCHC 32.8 RDW 14.6 Plt Count 150 D MPV 12.0 H D Sodium Potassium Chloride Carbon Dioxide Anion Gap BUN Creatinine Est GFR (CKD-EPI)AfAm Est GFR (CKD-EPI)NonAf Random Glucose Calcium Total Bilirubin AST ALT Alkaline Phosphatase Total Protein Albumin Urine Color Urine Appearance Urine pH Ur Specific [place] Urine Protein Urine Glucose (UA) Urine Ketones Urine Blood Urine Nitrite Urine Bilirubin Urine Urobilinogen Ur Leukocyte Esterase Syphilis Serology Non-reactive COVID-19 (LOR) Not detected 12/03/19 12/03/19 07:35 08:20 WBC RBC Hgb Hct MCV MCH MCHC RDW Plt Count MPV Sodium 139 Potassium 4.6 Chloride 102 Carbon Dioxide 34 H Anion Gap 3 L BUN 19.5 H Creatinine 0.8 Est GFR (CKD-EPI)AfAm 129.51 Est GFR (CKD-EPI)NonAf 111.74 Random Glucose 72 L Calcium 9.0 Total Bilirubin 0.3 AST 21 ALT 26 Alkaline Phosphatase 122 H Total Protein 7.2 Albumin 3.2 L Urine Color Yellow Urine Appearance Clear Urine pH 7.0 Ur Specific [place] 1.020 Urine Protein Negative Urine Glucose (UA) Negative Urine Ketones Negative Urine Blood Negative Urine Nitrite Negative Urine Bilirubin Negative Urine Urobilinogen 0.2 Ur Leukocyte Esterase Negative Syphilis Serology COVID-19 (LOR) lab noted - Treatment Hospital Course: Detox Protocol Followed, Detoxed Safely, Responded well, Discharged Condition Good, Rehab Referral Accepted Patient has Accepted [facility] Referral [facility] - Medication Discharge Medications: Ambulatory Orders NK [No Known Home Medication] 12/02/19 - Diagnosis (1) Alcohol use disorder Current Visit: Yes Status: Acute (2) Ambulates with cane Current Visit: Yes Status: Chronic (3) Sedative dependence Current Visit: Yes Status: Acute (4) Substance induced mood disorder Current Visit: Yes Status: Suspected (5) Hepatitis C Current Visit: Yes Status: Chronic Qualifiers: Viral hepatitis chronicity: chronic Hepatic coma status: without hepatic coma Qualified Code(s): B18.2 - Chronic viral hepatitis C (6) Nicotine dependence Current Visit: Yes Status: Acute Qualifiers: Nicotine product type: cigarettes Substance use status: in withdrawal Qualified Code(s): F17.213 - Nicotine dependence, cigarettes, with withdrawal - AMA Did Patient Leave Against Medical Advice: No CIWA Score - CIWA Score Nausea/Vomitin-No Nausea/No Vomiting Muscle Tremors: 1-None Visible, but [place] Anxiety: 1-Mildly Anxious Agitation: 0-Normal Activity Paroxysmal Sweats: No Perspiration Orientation: 0-Oriented Tacttile Disturbances: 0-None Auditory Disturbances: 0-None Visual Disturbances: 0-None Headache: 0-None Present CIWA-Ar Total Score: 2
== END 2019-12-06 12:41 | disposition other institution (70) | DRG 773 ==
LOC: YASAS 14:13 → Y3N 17:28
PROVIDERS: ADMIT Allergy & Immunology; ATTEND Allergy & Immunology
PROC: HZ2ZZZZ Detoxification Services for Substance Abuse Treatment (ICD-10-PCS; principal; 2019-12-02)
DX: F10.230 Alcohol dependence with withdrawal, uncomplicated (principal); F13.230 Sedative, hypnotic or anxiolytic dependence with withdrawal, uncomplicated; F11.20 Opioid dependence, uncomplicated; F14.20 Cocaine dependence, uncomplicated; F17.213 Nicotine dependence, cigarettes, with withdrawal; F19.282 Other psychoactive substance dependence with psychoactive substance-induced sleep disorder; F19.24 Other psychoactive substance dependence with psychoactive substance-induced mood disorder; B18.2 Chronic viral hepatitis C; Z62.810 Personal history of physical and sexual abuse in childhood; Z99.89 Dependence on other enabling machines and devices; Z85.831 Personal history of malignant neoplasm of soft tissue; Z98.890 Other specified postprocedural states; Z91.5 Personal history of self-harm; Z56.0 Unemployment, unspecified; Z59.0 Homelessness
CPT/HCPCS: 36415; 80053; 81003; 85027; 86780; C9803; J0735; U0003

== ENCOUNTER 2020-05-31 11:17 | Inpatient (IN) | payer OTHER ==
[2020-05-31 12:11] VITALS: BMI 24.8
[2020-05-31] MEDS ORDERED: ALBUTEROL SO4 HFA INHALER IH PRN (13:30)
[2020-05-31] MEDS ORDERED: MAGNESIUM CITRATE 300 ML BOTTLE PO PRN (13:31)
[2020-05-31] MEDS ORDERED: MAGNESIUM HYDROX 2400MG/30ML ORAL SUSPENSION 30 ML CUP PO PRN (13:31)
[2020-05-31] MEDS ORDERED: ACETAMINOPHEN 325 MG TABLET (FP) PO PRN (13:31)
[2020-05-31] MEDS ORDERED: METHADONE HCL 10 MG TABLET (FOR DETOX USE ONLY) PO ONE (13:31)
[2020-05-31] MEDS ORDERED: MENTHOL/PHENOL 1 EACH UD MM PRN (13:31)
[2020-05-31] MEDS ORDERED: MAG HYDROX/AL HYDROX/SIMETH 30 ML UNIT-DOSE CUP PO PRN (13:31)
[2020-05-31] MEDS ORDERED: IBUPROFEN 400 MG TABLET (FP) PO PRN (13:31)
[2020-05-31] MEDS ORDERED: ONDANSETRON *ODT* 4 MG TABLET SL PRN (13:31)
[2020-05-31] MEDS ORDERED: NALOXONE (NARCAN) HCL 4 MG/0.1 ML SPRAY NS PRN (13:31)
[2020-05-31] MEDS ORDERED: NICOTINE POLACRILEX 2 MG GUM BUC PRN (13:31)
[2020-05-31] MEDS ORDERED: BISMUTH SUBSALICYLATE 262 MG/15 ML BTL PO PRN (13:31)
[2020-05-31] MEDS ORDERED: cloNIDine HCL 0.1 MG TABLET PO PRN (13:31)
[2020-05-31] MEDS ORDERED: diazePAM 5 MG TABLET PO PRN (13:31)
[2020-05-31] MEDS: NICOTINE 14 MG/24 HOURS TOPICAL PATCH TD SCH (14:29)
[2020-05-31] MEDS: PRENATAL VITAMINS W/ FOLIC ACID TABLET (FP) PO SCH (14:30)
[2020-05-31] MEDS: hydrOXYzine PAMOATE 25 MG CAPSULE (FP) PO SCH ×3 (14:32→22:00)
[2020-05-31 15:00] LABS: HEMATOCRIT 37.2 % (35.4-49); HEMOGLOBIN 12.4 GM/dL (11.7-16.9); MCH 29.8 pg (25.7-33.7); MCHC 33.4 g/dl (32.0-35.9); MEAN CELL VOLUME 89.1 fl (80-96); MEAN PLT VOLUME 9.4 fl (7.5-11.1); PLATELET COUNT 153 K/MM3 (134-434); RBC 4.17 M/mm3 (4.00-5.60); WHITE BLOOD COUNT 6.6 K/mm3 (4.0-10.0)
[2020-05-31 15:05] LABS: ALBUMIN 3.7 g/dl (3.4-5.0); BLOOD UREA NITROGEN 14.2 mg/dL (7-18); CALCIUM 9.4 mg/dL (8.5-10.1)
[2020-05-31 15:09] LABS: CREATININE 0.8 mg/dL (0.55-1.3)
[2020-05-31 15:10] LABS: BILIRUBIN,TOTAL 0.3 mg/dL (0.2-1); TOT PROT 7.8 g/dl (6.4-8.2)
[2020-05-31] MEDS: diazePAM 5 MG TABLET PO SCH ×2 (17:39→22:00)
[2020-05-31] MEDS: METHOCARBAMOL 500 MG TABLET PO PRN (17:40)
[2020-05-31] MEDS: THIAMINE HCL 100 MG TABLET (FP) PO SCH (21:59)
[2020-05-31] MEDS: MELATONIN 5 MG TABLETS PO SCH (21:59)
[2020-06-01] MEDS: hydrOXYzine PAMOATE 25 MG CAPSULE (FP) PO SCH ×5 (06:01→22:25)
[2020-06-01] MEDS: diazePAM 5 MG TABLET PO SCH ×4 (06:01→22:25)
[2020-06-01] MEDS ORDERED: METHADONE HCL 5 MG TABLET (FOR DETOX USE ONLY) ONE (08:53)
[2020-06-01] MEDS ORDERED: METHADONE HCL 10 MG TABLET (FOR DETOX USE ONLY) ONE (08:53)
[2020-06-01] MEDS ORDERED: METHADONE (DETOX) 20 MG, METHADONE (DETOX) 5 MG PO ONE (10:00)
[2020-06-01] MEDS: NICOTINE 14 MG/24 HOURS TOPICAL PATCH TD SCH (10:29)
[2020-06-01] MEDS: PRENATAL VITAMINS W/ FOLIC ACID TABLET (FP) PO SCH (10:29)
[2020-06-01] MEDS: ACETAMINOPHEN 325 MG TABLET (FP) PO PRN (10:30)
[2020-06-01] MEDS: MELATONIN 5 MG TABLETS PO SCH (22:24)
[2020-06-01] MEDS: THIAMINE HCL 100 MG TABLET (FP) PO SCH (22:25)
[2020-06-02] MEDS: hydrOXYzine PAMOATE 25 MG CAPSULE (FP) PO SCH ×2 (05:52→09:10)
[2020-06-02] MEDS: ACETAMINOPHEN 325 MG TABLET (FP) PO PRN (05:53)
[2020-06-02] MEDS ORDERED: diazePAM 5 MG TABLET PO SCH (06:00)
[2020-06-02] MEDS: PRENATAL VITAMINS W/ FOLIC ACID TABLET (FP) PO SCH (09:08)
[2020-06-02] MEDS: NICOTINE 14 MG/24 HOURS TOPICAL PATCH TD SCH (09:09)
[2020-06-02] MEDS: METHOCARBAMOL 500 MG TABLET PO PRN (09:11)
[2020-06-02 09:15] VITALS: BP 136/83; PULSE 72; TEMP 97.5
[2020-06-02] MEDS ORDERED: METHADONE HCL 10 MG TABLET (FOR DETOX USE ONLY) PO ONE (10:00)
[2020-06-03] MEDS ORDERED: diazePAM 5 MG TABLET PO SCH (06:00)
[2020-06-03] MEDS ORDERED: METHADONE (DETOX) 10 MG, METHADONE (DETOX) 5 MG PO ONE (10:00)
[2020-06-04] MEDS ORDERED: diazePAM 5 MG TABLET PO ONE (06:00)
[2020-06-04] MEDS ORDERED: METHADONE HCL 10 MG TABLET (FOR DETOX USE ONLY) PO ONE (10:00)
[2020-06-05] MEDS ORDERED: METHADONE HCL 5 MG TABLET (FOR DETOX USE ONLY) PO ONE (06:00)
== END 2020-06-02 11:58 | disposition left against medical advice (07) | DRG 770 ==
LOC: YASAS 11:17 → Y3N 12:53 → UNDOADMIN 12:53 → Y3N 23:06
PROVIDERS: ADMIT Allergy & Immunology; ATTEND Allergy & Immunology
PROC: HZ2ZZZZ Detoxification Services for Substance Abuse Treatment (ICD-10-PCS; principal; 2020-05-31)
DX: F11.23 Opioid dependence with withdrawal (principal); F10.230 Alcohol dependence with withdrawal, uncomplicated; F13.20 Sedative, hypnotic or anxiolytic dependence, uncomplicated; F14.20 Cocaine dependence, uncomplicated; F17.210 Nicotine dependence, cigarettes, uncomplicated; F31.9 Bipolar disorder, unspecified; B18.2 Chronic viral hepatitis C
CPT/HCPCS: 36415; 80053; 85027; 86780; 93005; 93010; C9803; U0003; U0005

== ENCOUNTER 2020-07-08 17:15 | Inpatient (IN) | payer OTHER ==
[2020-07-08 17:55] VITALS: BMI 22.8
[2020-07-08] MEDS ORDERED: ACETAMINOPHEN 325 MG TABLET (FP) PO PRN (19:06)
[2020-07-08] MEDS ORDERED: MAGNESIUM CITRATE 300 ML BOTTLE PO PRN (19:06)
[2020-07-08] MEDS ORDERED: BISMUTH SUBSALICYLATE 524 MG/30 ML UD PO PRN (19:06)
[2020-07-08] MEDS ORDERED: MAG HYDROX/AL HYDROX/SIMETH 30 ML UNIT-DOSE CUP PO PRN (19:06)
[2020-07-08] MEDS ORDERED: NICOTINE POLACRILEX 2 MG GUM BUC PRN (19:06)
[2020-07-08] MEDS ORDERED: MAGNESIUM HYDROX 2400MG/30ML ORAL SUSPENSION 30 ML CUP PO PRN (19:06)
[2020-07-08] MEDS ORDERED: MENTHOL/PHENOL 1 EACH UD MM PRN (19:06)
[2020-07-08] MEDS: diazePAM 5 MG TABLET PO PRN (20:08)
[2020-07-08] MEDS: ACETAMINOPHEN 325 MG TABLET (FP) PO PRN (20:14)
[2020-07-08] MEDS: MELATONIN 5 MG TABLETS PO SCH (22:29)
[2020-07-08] MEDS: METHOCARBAMOL 500 MG TABLET PO PRN (22:30)
[2020-07-08] MEDS: diazePAM 5 MG TABLET PO SCH (22:30)
[2020-07-08] MEDS: THIAMINE HCL 100 MG TABLET (FP) PO SCH (22:31)
[2020-07-08] MEDS ORDERED: METHADONE HCL 10 MG TABLET (FOR DETOX USE ONLY) PO ONE (23:00)
[2020-07-09] MEDS: diazePAM 5 MG TABLET PO SCH ×4 (06:09→22:43)
[2020-07-09] MEDS ORDERED: METHADONE HCL 10 MG TABLET (FOR DETOX USE ONLY) ONE (09:10)
[2020-07-09] MEDS ORDERED: METHADONE HCL 5 MG TABLET (FOR DETOX USE ONLY) ONE (09:10)
[2020-07-09] MEDS ORDERED: ALBUTEROL SO4 HFA INHALER IH PRN (09:21)
[2020-07-09] MEDS ORDERED: METHADONE (DETOX) 20 MG, METHADONE (DETOX) 5 MG PO ONE (10:00)
[2020-07-09] MEDS: PRENATAL VITAMINS W/ FOLIC ACID TABLET (FP) PO SCH (10:50)
[2020-07-09] MEDS: cloNIDine HCL 0.1 MG TABLET PO PRN ×2 (16:42→22:41)
[2020-07-09] MEDS: diazePAM 5 MG TABLET PO PRN (20:29)
[2020-07-09] MEDS: METHOCARBAMOL 500 MG TABLET PO PRN (22:41)
[2020-07-09] MEDS: MELATONIN 5 MG TABLETS PO SCH (23:11)
[2020-07-09] MEDS: THIAMINE HCL 100 MG TABLET (FP) PO SCH (23:12)
[2020-07-10] MEDS: IBUPROFEN 400 MG TABLET (FP) PO PRN ×2 (00:28→10:17)
[2020-07-10] MEDS: ACETAMINOPHEN 325 MG TABLET (FP) PO PRN (05:29)
[2020-07-10] MEDS ORDERED: diazePAM 5 MG TABLET PO SCH (06:00)
[2020-07-10] MEDS ORDERED: METHADONE HCL 10 MG TABLET (FOR DETOX USE ONLY) PO ONE (10:00)
[2020-07-10 10:03] VITALS: BP 154/91; PULSE 74; TEMP 98.4
[2020-07-10 10:12] LABS: HEMATOCRIT 39.6 % (35.4-49); HEMOGLOBIN 13.2 GM/dL (11.7-16.9); MCH 29.2 pg (25.7-33.7); MCHC 33.4 g/dl (32.0-35.9); MEAN CELL VOLUME 87.4 fl (80-96); MEAN PLT VOLUME 9.7 fl (7.5-11.1); PLATELET COUNT 176 K/MM3 (134-434); RBC 4.54 M/mm3 (4.00-5.60); RDW 13.9 % (11.9-15.9); WHITE BLOOD COUNT 6.2 K/mm3 (4.0-10.0)
[2020-07-10] MEDS: PRENATAL VITAMINS W/ FOLIC ACID TABLET (FP) PO SCH (10:15)
[2020-07-10] MEDS: METHOCARBAMOL 500 MG TABLET PO PRN (10:16)
[2020-07-10] MEDS ORDERED: cloNIDine HCL 0.1 MG TABLET PO PRN (10:19)
[2020-07-10 10:22] LABS: ALBUMIN 3.7 g/dl (3.4-5.0); BLOOD UREA NITROGEN 10.2 mg/dL (7-18); CALCIUM 9.3 mg/dL (8.5-10.1)
[2020-07-10 10:26] LABS: CREATININE 0.7 mg/dL (0.55-1.3)
[2020-07-10 10:28] LABS: BILIRUBIN,TOTAL 0.4 mg/dL (0.2-1); TOT PROT 8.2 g/dl (6.4-8.2)
[2020-07-11] MEDS ORDERED: diazePAM 5 MG TABLET PO SCH (06:00)
[2020-07-11] MEDS ORDERED: METHADONE (DETOX) 10 MG, METHADONE (DETOX) 5 MG PO ONE (10:00)
[2020-07-12] MEDS ORDERED: diazePAM 5 MG TABLET PO ONE (06:00)
[2020-07-12] MEDS ORDERED: METHADONE HCL 10 MG TABLET (FOR DETOX USE ONLY) PO ONE (10:00)
[2020-07-13] MEDS ORDERED: METHADONE HCL 5 MG TABLET (FOR DETOX USE ONLY) PO ONE (06:00)
== END 2020-07-10 11:50 | disposition left against medical advice (07) | DRG 770 ==
LOC: YASAS 17:15 → Y6N 19:06
PROVIDERS: ADMIT Allergy & Immunology; ATTEND Allergy & Immunology
PROC: HZ2ZZZZ Detoxification Services for Substance Abuse Treatment (ICD-10-PCS; principal; 2020-07-08)
DX: F11.23 Opioid dependence with withdrawal (principal); F13.230 Sedative, hypnotic or anxiolytic dependence with withdrawal, uncomplicated; F14.20 Cocaine dependence, uncomplicated; F10.10 Alcohol abuse, uncomplicated; F17.210 Nicotine dependence, cigarettes, uncomplicated; F31.9 Bipolar disorder, unspecified; F19.24 Other psychoactive substance dependence with psychoactive substance-induced mood disorder; B18.2 Chronic viral hepatitis C
CPT/HCPCS: 36415; 80053; 85027; 86780; C9803; J0735; U0003; U0005

== ENCOUNTER 2020-09-16 17:28 | Inpatient (IN) | payer OTHER ==
[2020-09-16 18:29] VITALS: BMI 22.3
[2020-09-16] MEDS ORDERED: BISMUTH SUBSALICYLATE 524 MG/30 ML PO PRN (19:02)
[2020-09-16] MEDS ORDERED: IBUPROFEN 400 MG TABLET (FP) PO PRN (19:02)
[2020-09-16] MEDS ORDERED: ACETAMINOPHEN 325 MG TABLET (FP) PO PRN ×2 (19:02)
[2020-09-16] MEDS ORDERED: MAGNESIUM HYDROX 2400MG/30ML ORAL SUSPENSION 30 ML CUP PO PRN (19:02)
[2020-09-16] MEDS ORDERED: MAGNESIUM CITRATE 300 ML BOTTLE PO PRN (19:02)
[2020-09-16] MEDS ORDERED: MENTHOL/PHENOL 1 EACH UD MM PRN (19:02)
[2020-09-16] MEDS ORDERED: methaDONE HCL 10 MG TABLET (FOR DETOX USE ONLY) PO ONE (19:02)
[2020-09-16] MEDS ORDERED: MAG HYDROX/AL HYDROX/SIMETH 30 ML UNIT-DOSE CUP PO PRN (19:02)
[2020-09-16] MEDS ORDERED: NICOTINE POLACRILEX 2 MG GUM BUC PRN (19:02)
[2020-09-16] MEDS ORDERED: ONDANSETRON *ODT* 4 MG TABLET SL PRN (19:02)
[2020-09-16] MEDS ORDERED: ALBUTEROL SO4 HFA INHALER IH PRN (19:39)
[2020-09-16] MEDS: LORazepam 1 MG TABLET PO PRN (20:32)
[2020-09-16] MEDS: PRENATAL VITAMINS W/ FOLIC ACID TABLET (FP) PO SCH (20:35)
[2020-09-16] MEDS: METHOCARBAMOL 500 MG TABLET PO PRN (20:37)
[2020-09-16] MEDS: THIAMINE HCL 100 MG TABLET (FP) PO SCH (22:28)
[2020-09-16] MEDS: LORazepam 2 MG TABLET PO SCH (22:29)
[2020-09-16] MEDS: hydrOXYzine PAMOATE 25 MG CAPSULE (FP) PO SCH (22:29)
[2020-09-16] MEDS: MELATONIN 5 MG TABLETS PO SCH (22:30)
[2020-09-17] MEDS: LORazepam 2 MG TABLET PO SCH ×4 (05:20→22:10)
[2020-09-17] MEDS: hydrOXYzine PAMOATE 25 MG CAPSULE (FP) PO SCH ×5 (07:16→22:13)
[2020-09-17] MEDS: LORazepam 1 MG TABLET PO PRN ×2 (07:49→11:50)
[2020-09-17] MEDS ORDERED: methaDONE HCL 10 MG TABLET (FOR DETOX USE ONLY) ONE (09:10)
[2020-09-17] MEDS: PRENATAL VITAMINS W/ FOLIC ACID TABLET (FP) PO SCH (09:59)
[2020-09-17 10:38] LABS: HEMATOCRIT 38.7 % (35.4-49); HEMOGLOBIN 12.9 GM/dL (11.7-16.9); MCH 29.3 pg (25.7-33.7); MCHC 33.4 g/dl (32.0-35.9); MEAN CELL VOLUME 87.6 fl (80-96); MEAN PLT VOLUME 9.5 fl (7.5-11.1); PLATELET COUNT 186 10^3/uL (134-434); RBC 4.42 M/mm3 (4.00-5.60); RDW 13.9 % (11.9-15.9); WHITE BLOOD COUNT 6.3 K/mm3 (4.0-10.0)
[2020-09-17 10:43] LABS: ALBUMIN 3.6 g/dl (3.4-5.0); CALCIUM 9.1 mg/dL (8.5-10.1)
[2020-09-17 10:46] LABS: CREATININE 0.9 mg/dL (0.55-1.3)
[2020-09-17 10:48] LABS: BILIRUBIN,TOTAL 0.2 mg/dL (0.2-1); TOT PROT 7.7 g/dl (6.4-8.2)
[2020-09-17] MEDS ORDERED: MASKS NR ONE (14:21)
[2020-09-17] MEDS: cloNIDine HCL 0.1 MG TABLET PO PRN (20:59)
[2020-09-17] MEDS ORDERED: AMITRIPTYLINE HCL 25 MG TABLET PO SCH (22:00)
[2020-09-17] MEDS: THIAMINE HCL 100 MG TABLET (FP) PO SCH (22:11)
[2020-09-17] MEDS: MELATONIN 5 MG TABLETS PO SCH (22:13)
[2020-09-18] MEDS: LORazepam 1 MG TABLET PO PRN (01:22)
[2020-09-18] MEDS: LORazepam 1 MG TABLET PO SCH ×2 (05:44→10:16)
[2020-09-18] MEDS: hydrOXYzine PAMOATE 25 MG CAPSULE (FP) PO SCH ×3 (05:45→09:37)
[2020-09-18] MEDS: METHOCARBAMOL 500 MG TABLET PO PRN (09:33)
[2020-09-18] MEDS ORDERED: methaDONE HCL 10 MG TABLET (FOR DETOX USE ONLY) PO ONE ×2 (10:00→13:32)
[2020-09-18] MEDS: PRENATAL VITAMINS W/ FOLIC ACID TABLET (FP) PO SCH (10:16)
[2020-09-18] MEDS: cloNIDine HCL 0.1 MG TABLET PO PRN (10:47)
[2020-09-18 13:17] VITALS: BP 130/81; PULSE 98; TEMP 97.8
[2020-09-18] MEDS ORDERED: propRANOLol HCL 10 MG TABLET PO SCH ×2 (14:00→22:00)
[2020-09-19] MEDS ORDERED: LORazepam 0.5 MG TABLET PO PRN
[2020-09-19] MEDS ORDERED: LORazepam 0.5 MG TABLET PO SCH (05:00)
[2020-09-19] MEDS ORDERED: methaDONE HCL 10 MG TABLET (FOR DETOX USE ONLY) PO ONE (10:00)
[2020-09-20] MEDS ORDERED: LORazepam 0.5 MG TABLET PO ONE (05:00)
[2020-09-20] MEDS ORDERED: methaDONE HCL 10 MG TABLET (FOR DETOX USE ONLY) PO ONE ×2 (10:00)
[2020-09-22] MEDS ORDERED: methaDONE HCL 10 MG TABLET (FOR DETOX USE ONLY) PO ONE (10:00)
[2020-09-23] MEDS ORDERED: methaDONE HCL 10 MG TABLET (FOR DETOX USE ONLY) PO ONE (05:00)
== END 2020-09-18 14:08 | disposition left against medical advice (07) | DRG 770 ==
LOC: YASAS 17:28 → Y6N 19:23
PROVIDERS: ADMIT Allergy & Immunology; ATTEND Allergy & Immunology
PROC: HZ2ZZZZ Detoxification Services for Substance Abuse Treatment (ICD-10-PCS; principal; 2020-09-16)
DX: F11.23 Opioid dependence with withdrawal (principal); F13.230 Sedative, hypnotic or anxiolytic dependence with withdrawal, uncomplicated; F14.20 Cocaine dependence, uncomplicated; F17.210 Nicotine dependence, cigarettes, uncomplicated; F31.9 Bipolar disorder, unspecified; F19.282 Other psychoactive substance dependence with psychoactive substance-induced sleep disorder; J45.909 Unspecified asthma, uncomplicated; G43.909 Migraine, unspecified, not intractable, without status migrainosus; M54.5 Low back pain; G89.29 Other chronic pain; B18.2 Chronic viral hepatitis C; Z98.890 Other specified postprocedural states
CPT/HCPCS: 36415; 80053; 85027; 86780; C9803; J0735; U0003; U0005

== ENCOUNTER 2021-07-14 09:55 | Inpatient (IN) | payer OTHER ==
[2021-07-14 10:17] VITALS: BMI 21.9
[2021-07-14] MEDS ORDERED: MAGNESIUM CITRATE 300 ML BOTTLE PO PRN (10:41)
[2021-07-14] MEDS ORDERED: ONDANSETRON *ODT* 4 MG TABLET SL PRN (10:41)
[2021-07-14] MEDS ORDERED: DICYCLOMINE HCL 10 MG CAPSULE PO PRN (10:41)
[2021-07-14] MEDS ORDERED: NICOTINE 10 MG CARTRIDGE (INHALER) IH PRN (10:41)
[2021-07-14] MEDS ORDERED: ACETAMINOPHEN 325 MG TABLET (FP) PO PRN ×2 (10:41)
[2021-07-14] MEDS ORDERED: BENZOCAINE/MENTHOL (CHLORASEPTIC ) LOZENGE MM PRN (10:41)
[2021-07-14] MEDS ORDERED: IBUPROFEN 400 MG TABLET (FP) PO PRN (10:41)
[2021-07-14] MEDS ORDERED: BISMUTH SUBSALICYLATE 524 MG/30 ML PO PRN (10:41)
[2021-07-14] MEDS ORDERED: MAGNESIUM HYDROX 2400MG/30ML ORAL SUSPENSION 30 ML CUP PO PRN (10:41)
[2021-07-14] MEDS ORDERED: BUPRENORPHINE HCL 150 MCG, BUPRENORPHINE HCL 75 MCG BC PRN (10:41)
[2021-07-14] MEDS ORDERED: diazePAM 5 MG TABLET PO PRN ×2 (10:41)
[2021-07-14] MEDS ORDERED: LOPERAMIDE HCL 2 MG CAPSULE PO PRN (10:41)
[2021-07-14] MEDS ORDERED: MAG HYDROX/AL HYDROX/SIMETH 30 ML UNIT-DOSE CUP PO PRN (10:41)
[2021-07-14] MEDS ORDERED: cloNIDine HCL 0.1 MG TABLET PO ONE (11:00)
[2021-07-14] MEDS ORDERED: BUPRENORPHINE HCL 150 MCG, BUPRENORPHINE HCL 75 MCG BC ONE (11:00)
[2021-07-14] MEDS ORDERED: BUPRENORPHINE HCL 75 MCG FILM BC ONE (11:23)
[2021-07-14] MEDS ORDERED: diazePAM 5 MG TABLET ONE (11:23)
[2021-07-14] MEDS ORDERED: BUPRENORPHINE HCL 150 MCG FILM BC ONE (11:23)
[2021-07-14] MEDS: diazePAM 5 MG TABLET PO SCH ×3 (11:28→22:52)
[2021-07-14] MEDS: METHOCARBAMOL 500 MG TABLET PO PRN ×2 (11:50→22:51)
[2021-07-14] MEDS: PRENATAL VITAMINS W/ FOLIC ACID TABLET (FP) PO SCH (11:57)
[2021-07-14] MEDS: NICOTINE 14 MG/24 HOURS TOPICAL PATCH TD SCH (11:57)
[2021-07-14] MEDS: hydrOXYzine PAMOATE 25 MG CAPSULE (FP) PO SCH ×3 (13:15→22:52)
[2021-07-14 14:25] LABS: HEMATOCRIT 31.5 % (35.4-49); HEMOGLOBIN 10.5 GM/dL (11.7-16.9); MCH 29.2 pg (25.7-33.7); MCHC 33.3 g/dl (32.0-35.9); MEAN CELL VOLUME 87.6 fl (80-96); MEAN PLT VOLUME 9.3 fl (7.5-11.1); PLATELET COUNT 193 10^3/uL (134-434); RBC 3.59 M/mm3 (4.00-5.60); RDW 14.1 % (11.9-15.9); WHITE BLOOD COUNT 6.2 K/mm3 (4.0-10.0)
[2021-07-14 14:31] LABS: CALCIUM 8.9 mg/dL (8.5-10.1)
[2021-07-14 14:32] LABS: ALBUMIN 3.5 g/dl (3.4-5.0); BLOOD UREA NITROGEN 21.3 mg/dL (7-18)
[2021-07-14 14:36] LABS: BILIRUBIN,TOTAL 0.4 mg/dL (0.2-1); TOT PROT 7.4 g/dl (6.4-8.2)
[2021-07-14] MEDS ORDERED: cloNIDine HCL 0.1 MG TABLET PO PRN (14:42)
[2021-07-14] MEDS ORDERED: ALBUTEROL SO4 HFA INHALER IH PRN (16:22)
[2021-07-14] MEDS: MELATONIN 5 MG TABLETS PO SCH (22:51)
[2021-07-14] MEDS: THIAMINE HCL 100 MG TABLET (FP) PO SCH (22:52)
[2021-07-15] MEDS ORDERED: BUPRENORPHINE HCL 150 MCG, BUPRENORPHINE HCL 75 MCG BC PRN
[2021-07-15] MEDS ORDERED: BUPRENORPHINE HCL 150 MCG FILM BC ONE ×2 (04:04→10:55)
[2021-07-15] MEDS ORDERED: BUPRENORPHINE HCL 75 MCG FILM BC ONE ×2 (04:05→10:56)
[2021-07-15] MEDS: diazePAM 5 MG TABLET PO SCH ×4 (05:43→22:54)
[2021-07-15] MEDS: hydrOXYzine PAMOATE 25 MG CAPSULE (FP) PO SCH ×5 (05:45→22:54)
[2021-07-15] MEDS ORDERED: BUPRENORPHINE HCL 150 MCG, BUPRENORPHINE HCL 75 MCG BC SCH (06:00)
[2021-07-15] MEDS ORDERED: TRIMETHOBENZAMIDE HCL 200MG/2ML INJ IM PRN (10:31)
[2021-07-15] MEDS ORDERED: DICYCLOMINE HCL 10 MG CAPSULE PO ONE (10:40)
[2021-07-15] MEDS ORDERED: BACLOFEN 10 MG TABLET (FP) PO ONE (10:42)
[2021-07-15] MEDS: NICOTINE 14 MG/24 HOURS TOPICAL PATCH TD SCH (10:53)
[2021-07-15] MEDS: METHOCARBAMOL 500 MG TABLET PO PRN (10:58)
[2021-07-15] MEDS: PRENATAL VITAMINS W/ FOLIC ACID TABLET (FP) PO SCH (11:01)
[2021-07-15] MEDS ORDERED: cloNIDine HCL 0.1 MG TABLET PO PRN (13:52)
[2021-07-15] MEDS ORDERED: methaDONE HCL 10 MG TABLET (FOR DETOX USE ONLY) ONE (14:42)
[2021-07-15] MEDS: BACLOFEN 10 MG TABLET (FP) PO SCH ×2 (14:45→22:54)
[2021-07-15] MEDS: THIAMINE HCL 100 MG TABLET (FP) PO SCH (22:54)
[2021-07-15] MEDS: MELATONIN 5 MG TABLETS PO SCH (22:55)
[2021-07-16] MEDS: BACLOFEN 10 MG TABLET (FP) PO SCH (05:58)
[2021-07-16] MEDS: hydrOXYzine PAMOATE 25 MG CAPSULE (FP) PO SCH (05:58)
[2021-07-16] MEDS ORDERED: diazePAM 5 MG TABLET PO SCH (06:00)
[2021-07-16] MEDS ORDERED: BUPRENORPHINE HCL 450 MCG FILM BC SCH (06:00)
[2021-07-16] MEDS ORDERED: methaDONE HCL 10 MG TABLET (FOR DETOX USE ONLY) PO ONE (10:00)
[2021-07-16 10:04] VITALS: BP 131/75; PULSE 50; TEMP 97.1
[2021-07-17] MEDS ORDERED: BUPRENORPHINE/NALOXONE 4 MG/1 MG FILM PACKET SL SCH (06:00)
[2021-07-17] MEDS ORDERED: diazePAM 5 MG TABLET PO SCH (06:00)
[2021-07-18] MEDS ORDERED: diazePAM 5 MG TABLET PO ONE (06:00)
[2021-07-18] MEDS ORDERED: BUPRENORPHINE/NALOXONE 8 MG/2 MG FILM PACKET SL ONE (06:00)
[2021-07-18] MEDS ORDERED: methaDONE HCL 10 MG TABLET (FOR DETOX USE ONLY) PO ONE (10:00)
[2021-07-18 13:26] LABS: SARS-CoV-2 NAA NOT DETECTED
== END 2021-07-16 10:30 | disposition left against medical advice (07) | DRG 770 ==
LOC: YASAS 09:55 → Y6N 10:57
PROVIDERS: ADMIT Allergy & Immunology; ATTEND Surgery
PROC: HZ2ZZZZ Detoxification Services for Substance Abuse Treatment (ICD-10-PCS; principal; 2021-07-14)
DX: F11.23 Opioid dependence with withdrawal (principal); F13.230 Sedative, hypnotic or anxiolytic dependence with withdrawal, uncomplicated; F14.20 Cocaine dependence, uncomplicated; F17.210 Nicotine dependence, cigarettes, uncomplicated; F31.9 Bipolar disorder, unspecified; F41.9 Anxiety disorder, unspecified; J45.909 Unspecified asthma, uncomplicated; B18.2 Chronic viral hepatitis C; M54.50 Low back pain, unspecified; G89.29 Other chronic pain; R63.4 Abnormal weight loss; Z68.21 Body mass index [BMI] 21.0-21.9, adult; Z28.310 Unvaccinated for COVID-19; Z28.21 Immunization not carried out because of patient refusal
CPT/HCPCS: 36415; 80053; 82962; 85027; 86780; 87811; C9803-CS; J0475; J0735; Q0162; U0003; U0005

== ENCOUNTER 2021-10-15 13:15 | Inpatient (IN) | payer OTHER ==
[2021-10-15 14:57] VITALS: RESP 18; BMI 21.2
[2021-10-15] MEDS ORDERED: ACETAMINOPHEN 325 MG TABLET (FP) PO PRN (16:41)
[2021-10-15] MEDS ORDERED: MAGNESIUM HYDROX 2400MG/30ML ORAL SUSPENSION 30 ML CUP PO PRN (16:41)
[2021-10-15] MEDS ORDERED: MAG HYDROX/AL HYDROX/SIMETH 30 ML UNIT-DOSE CUP PO PRN (16:41)
[2021-10-15] MEDS ORDERED: MAGNESIUM CITRATE 300 ML BOTTLE PO PRN (16:41)
[2021-10-15] MEDS ORDERED: NICOTINE 10 MG CARTRIDGE (INHALER) IH PRN (16:41)
[2021-10-15] MEDS ORDERED: P-EPHED 60MG/TRIPROLIDI 2.5MG TABLET PO PRN (16:41)
[2021-10-15] MEDS ORDERED: LOPERAMIDE HCL 2 MG CAPSULE PO PRN (16:41)
[2021-10-15] MEDS ORDERED: IBUPROFEN 400 MG TABLET (FP) PO PRN (16:41)
[2021-10-15] MEDS ORDERED: guaiFENesin 200 MG/10 ML 10 ML UNIT-DOSE CUPS PO PRN (16:41)
[2021-10-15] MEDS ORDERED: ALBUTEROL SO4 HFA INHALER IH PRN (16:45)
[2021-10-15] MEDS ORDERED: NALOXONE (NARCAN) HCL 4 MG/0.1 ML SPRAY NS PRN (16:45)
[2021-10-15] MEDS: hydrOXYzine PAMOATE 25 MG CAPSULE (FP) PO SCH ×2 (20:59→22:17)
[2021-10-15] MEDS ORDERED: THIAMINE HCL 100 MG TABLET (FP) PO SCH (22:00)
[2021-10-15] MEDS ORDERED: MELATONIN 5 MG TABLETS PO SCH (22:00)
[2021-10-15] MEDS: NICOTINE 7 MG/24 HOURS TOPICAL PATCH TD SCH (22:17)
[2021-10-16] MEDS: hydrOXYzine PAMOATE 25 MG CAPSULE (FP) PO SCH ×3 (06:26→14:55)
[2021-10-16 06:45] VITALS: PULSE 64; TEMP 98.6
[2021-10-16] MEDS ORDERED: cloNIDine HCL 0.1 MG TABLET PO ONE (06:56)
[2021-10-16 06:59] VITALS: BP 164/98
[2021-10-16] MEDS ORDERED: methaDONE HCL 10 MG TABLET PO SCH (08:00)
[2021-10-16] MEDS ORDERED: PRENATAL VITAMINS W/ FOLIC ACID TABLET (FP) PO SCH (10:00)
[2021-10-16 10:16] LABS: PH,URINE 8.5 (5.0-8.0); URINE APPEARANCE CLEAR; URINE BILIRUBIN NEGATIVE (NEGATIVE); URINE COLOR YELLOW; URINE GLUCOSE (UA) NEGATIVE (NEGATIVE); URINE KETONE NEGATIVE (NEGATIVE); URINE LEUK ESTERASE NEGATIVE (NEGATIVE); URINE NITRITE NEGATIVE (NEGATIVE); URINE PROTEIN NEGATIVE (NEGATIVE)
[2021-10-16] MEDS: NICOTINE 7 MG/24 HOURS TOPICAL PATCH TD SCH (11:14)
[2021-10-17] MEDS ORDERED: methaDONE 40 MG, methaDONE 20 MG PO SCH (06:00)
== END 2021-10-16 15:55 | disposition left against medical advice (07) | DRG 770 ==
LOC: YASAS 13:15 → Y3W 17:08
PROVIDERS: ADMIT Allergy & Immunology; ATTEND Psychiatry & Neurology Pain Medicine
PROC: HZ42ZZZ Group Counseling for Substance Abuse Treatment, Cognitive-Behavioral (ICD-10-PCS; principal; 2021-10-15)
DX: F11.20 Opioid dependence, uncomplicated (principal); F10.20 Alcohol dependence, uncomplicated; F14.20 Cocaine dependence, uncomplicated; F13.20 Sedative, hypnotic or anxiolytic dependence, uncomplicated; F17.210 Nicotine dependence, cigarettes, uncomplicated; F31.9 Bipolar disorder, unspecified; J45.20 Mild intermittent asthma, uncomplicated; R73.9 Hyperglycemia, unspecified; R63.4 Abnormal weight loss; Z68.21 Body mass index [BMI] 21.0-21.9, adult; Z28.310 Unvaccinated for COVID-19; Z28.21 Immunization not carried out because of patient refusal
CPT/HCPCS: 81003; C9803-CS; J0735; U0003; U0005

== ENCOUNTER 2022-12-31 12:15 | Inpatient (IN) | payer OTHER ==
[2022-12-31] MEDS ORDERED: MAGNESIUM HYDROX 2400MG/30ML ORAL SUSPENSION 30 ML CUP PO PRN (14:07)
[2022-12-31] MEDS ORDERED: POLYETHYLENE GLYCOL (HEALTHYLAX) 3350 17 GM PACKET PO PRN (14:07)
[2022-12-31] MEDS ORDERED: METHOCARBAMOL 500 MG TABLET PO PRN (14:07)
[2022-12-31] MEDS ORDERED: BENZOCAINE/MENTHOL (CHLORASEPTIC ) LOZENGE MM PRN (14:07)
[2022-12-31] MEDS ORDERED: LORazepam 1 MG TABLET PO PRN (14:07)
[2022-12-31] MEDS ORDERED: BENZONATATE 200 MG CAPSULE PO PRN (14:07)
[2022-12-31] MEDS ORDERED: LOPERAMIDE HCL 2 MG CAPSULE PO PRN (14:07)
[2022-12-31] MEDS ORDERED: ACETAMINOPHEN 325 MG TABLET (FP) PO PRN (14:07)
[2022-12-31] MEDS ORDERED: BISMUTH SUBSALICYLATE 262 MG/15 ML BTL PO PRN (14:07)
[2022-12-31] MEDS ORDERED: NALOXONE HCL 0.4 MG/ML VIAL IM PRN (14:07)
[2022-12-31] MEDS ORDERED: ONDANSETRON *ODT* 4 MG TABLET SL PRN (14:07)
[2022-12-31] MEDS ORDERED: NALOXONE HCL (KLOXXADO) 8 MG SPRAY NS PRN (14:07)
[2022-12-31] MEDS ORDERED: hydrOXYzine PAMOATE 25 MG CAPSULE (FP) PO PRN (14:07)
[2022-12-31] MEDS ORDERED: guaiFENesin 600 MG TABLET.ER (FP) PO PRN (14:07)
[2022-12-31] MEDS ORDERED: LORazepam 2 MG TABLET PO ONE (14:07)
[2022-12-31] MEDS ORDERED: MAG HYDROX/AL HYDROX/SIMETH 30 ML UNIT-DOSE CUP PO PRN (14:07)
[2022-12-31] MEDS ORDERED: DICYCLOMINE HCL 10 MG CAPSULE PO PRN (14:07)
[2022-12-31] MEDS ORDERED: NICOTINE POLACRILEX 4 MG GUM BUC PRN (14:07)
[2022-12-31] MEDS ORDERED: IBUPROFEN 600 MG TABLET (FP) PO PRN (14:07)
[2022-12-31] MEDS ORDERED: IBUPROFEN 400 MG TABLET (FP) PO PRN (14:07)
[2022-12-31] MEDS ORDERED: LORazepam 2 MG TABLET ONE (14:47)
[2022-12-31] MEDS ORDERED: PRENATAL VITAMINS W/ FOLIC ACID TABLET (FP) PO ONE (14:48)
[2022-12-31] MEDS: PRENATAL VITAMINS W/ FOLIC ACID TABLET (FP) PO SCH (14:49)
[2022-12-31] MEDS: LORazepam 2 MG TABLET PO SCH ×2 (17:29→22:35)
[2022-12-31] MEDS ORDERED: MELATONIN 5 MG TABLETS PO SCH (22:00)
[2022-12-31] MEDS ORDERED: THIAMINE HCL 100 MG TABLET (FP) PO SCH (22:00)
[2023-01-01] MEDS: LORazepam 2 MG TABLET PO SCH ×2 (05:30→10:33)
[2023-01-01 09:24] VITALS: BP 146/85; PULSE 56; RESP 17; TEMP 97.5
[2023-01-01] MEDS: PRENATAL VITAMINS W/ FOLIC ACID TABLET (FP) PO SCH (10:32)
[2023-01-01] MEDS ORDERED: methaDONE HCL 10 MG TABLET PO ONE (11:54)
[2023-01-01] MEDS ORDERED: methaDONE 40 MG, methaDONE 20 MG PO ONE (12:05)
[2023-01-01 12:28] LABS: HEMATOCRIT 35.2 % (35.4-49); HEMOGLOBIN 11.2 GM/dL (11.7-16.9); MCH 28.1 pg (25.7-33.7); MCHC 31.9 g/dl (32.0-35.9); MEAN CELL VOLUME 88.1 fl (80-96); MEAN PLT VOLUME 9.7 fl (7.5-11.1); PLATELET COUNT 205 10^3/uL (134-434); RDW 14.2 % (11.9-15.9); WHITE BLOOD COUNT 6.4 K/mm3 (4.0-10.0)
[2023-01-01 12:38] LABS: ALBUMIN 3.5 g/dl (3.4-5.0)
[2023-01-01 12:39] LABS: BLOOD UREA NITROGEN 19.1 mg/dL (7-18); CALCIUM 9.1 mg/dL (8.5-10.1)
[2023-01-01 12:41] LABS: CREATININE 0.9 mg/dL (0.55-1.3)
[2023-01-01 12:42] LABS: TOT PROT 7.4 g/dl (6.4-8.2)
[2023-01-01 12:43] LABS: BILIRUBIN,TOTAL 0.5 mg/dL (0.2-1)
[2023-01-01 12:56] LABS: POTASSIUM 4.2 mmol/L (3.5-5.1)
[2023-01-02] MEDS ORDERED: LORazepam 1 MG TABLET PO SCH (05:00)
[2023-01-02] MEDS ORDERED: methaDONE 40 MG, methaDONE 30 MG PO ONE (06:00)
[2023-01-02] MEDS ORDERED: methaDONE HCL 10 MG TABLET PO ONE (06:00)
[2023-01-03] MEDS ORDERED: LORazepam 0.5 MG TABLET PO PRN
[2023-01-03] MEDS ORDERED: LORazepam 0.5 MG TABLET PO SCH (05:00)
[2023-01-03] MEDS ORDERED: methaDONE HCL 40 MG DISPERSABLE TABLET PO ONE (06:00)
[2023-01-04] MEDS ORDERED: LORazepam 0.5 MG TABLET PO ONE (05:00)
[2023-01-04] MEDS ORDERED: methaDONE 80 MG, methaDONE 10 MG PO ONE (06:00)
[2023-01-04] MEDS ORDERED: methaDONE HCL 10 MG TABLET PO ONE (06:00)
[2023-01-05] MEDS ORDERED: methaDONE 80 MG, methaDONE 20 MG PO SCH (06:00)
[2023-01-05] MEDS ORDERED: methaDONE HCL 10 MG TABLET PO SCH (06:00)
== END 2023-01-01 13:45 | disposition left against medical advice (07) | DRG 770 ==
LOC: YASAS 12:15 → Y6N 14:38
PROVIDERS: ADMIT Allergy & Immunology; ATTEND Surgery
PROC: HZ2ZZZZ Detoxification Services for Substance Abuse Treatment (ICD-10-PCS; principal; 2022-12-31)
DX: F10.20 Alcohol dependence, uncomplicated (principal); F13.230 Sedative, hypnotic or anxiolytic dependence with withdrawal, uncomplicated; F11.20 Opioid dependence, uncomplicated; F14.20 Cocaine dependence, uncomplicated; F17.210 Nicotine dependence, cigarettes, uncomplicated; F31.9 Bipolar disorder, unspecified; I10 Essential (primary) hypertension; B18.2 Chronic viral hepatitis C; R63.4 Abnormal weight loss; Z68.20 Body mass index [BMI] 20.0-20.9, adult; Z85.89 Personal history of malignant neoplasm of other organs and systems
CPT/HCPCS: 36415; 80053; 80307; 82140; 85027; 86780; 87635; 87811